=== PATIENT | male | born 1945 | race Caucasian/White ===

== ENCOUNTER → 2017-07-16 08:35 | Outpatient (CLI) | payer MEDICARE, OTHER, SELFPAY ==
[2017-07-16 09:49] LABS: Estimated Glomerular Filt Rate > 60.0 mL/min (>60); Glucose 112 mg/dL (80-110); HEMOLYSIS < 15 (0-50); Potassium 4.3 mmol/L (3.4-5.1); Sodium 145 mmol/L (137-145)
[2017-07-16 10:38] LABS: Cholesterol 129 mg/dL (140-199); HDL Cholesterol 58 mg/dL (40-60); LDL Cholesterol Calculated 44 mg/dL (<100); Triglycerides 136 mg/dL (35-150)
== END ==
PROVIDERS: PCP Family Medicine; Visit Provider Internal Medicine Interventional Cardiology
DX: I25.10 Atherosclerotic heart disease of native coronary artery without angina pectoris (principal)
CPT/HCPCS: 36415; 80048; 80061

== ENCOUNTER 2018-02-14 09:00 | Outpatient (RCR) | payer MEDICARE, OTHER, SELFPAY ==
--- NOTE | 2017-11-19 17:15 | PT.OIE ---
Current Diagnoses Unspecified injury of right lower leg, initial encounter (11/19/17) Past Medical History (Last Updated 09/30/17 @ 14:43 by Shabana Gee) Eczema (Chronic) Hyperlipidemia (Chronic) Hypertension (Chronic) RLS (restless legs syndrome) (Chronic 2010) Chicken pox (Resolved) Shingles (Resolved 2006) Past Surgical History (Last Updated 09/30/17 @ 14:43 by Shabana Gee) History of cataract removal with insertion of prosthetic lens (Resolved) Provider Visit Care Team Role Provider Type Medina Castaneda DO Family Provider Physician Primary Care Provider Specialty: Family Practice Address: [address] [place] [address], [id number] Email: [email or web address] Bronson Decker DO Attending Provider Non-Staff Specialty: Dermatology Address: [address] [place] [address], [address] Email: Physical Therapy Initial Evaluation PT-OP-A Visit Information Start: 11/19/17 09:00 Freq: Status: Active Protocol: Document 11/19/17 09:01 [facility] (Rec: 11/19/17 09:48 [facility] [id number]) Out-Patient Physical Therapy Visit Information Visit Information Visit Type Initial Evaluation Visit Start Time 09:00 Visit Stop Time 09:45 Total Visit Minutes 45 Visit Number 1/10 Number of BUSINESS MACHINE MECHANIC Visits 0 PT-OP-B Current Condition Start: 11/19/17 09:00 Freq: Status: Active Protocol: Document 11/19/17 09:01 [facility] (Rec: 11/19/17 09:48 [facility] [id number]) Current Condition History of Current Condition Onset Date Mid June Current Complaints med R knee History of Current Condition His doctor recommended PT. About 1.5 years ago he slipped down steps and hurt B knees. After a couple months both were ok. On about July 09, he was on a cruise and slipped on last step and now has burning pain medially. He can push it and rub it to make it go away . Laying on his right side bothers him. It has now gotten to the point where he wants to take care of it. He played football as a kid and did get hit in R leg and it bother him for several months, but was able to cont to play. Reports he ER his RLE when driving and is unsure if it has affect. Since he got a knee brace, it hasn't been as bad (about 3 weeks). Reports some days it is so good he forgets to put on his brace. Pt had stent put in about 1 year ago. Reports he has been doing his cardiac rehab (uses treadmill 40 min, rowing 20 min, UBE 10 min, usually lifts but stopped d/t hand/forearm pain-stopped 6 weeks ago) Prior Treatments and Tests no imaging or chiropractor- helped w/manips & some exercises PT-OP-C Subjective Start: 11/19/17 09:00 Freq: Status: Active Protocol: Document 11/19/17 09:01 [facility] (Rec: 11/19/17 09:48 [facility] [id number]) OP-PT Pain Assessment Location Right Medial Knee Pain Location Details medial Scale Used Numeric (1 - 10) Description Aching Burning Frequency Occasional Pain Duration 20 sec duration Other Pain Aggravating Factors lay R side, walking over 4.5 miles/hr, driving in ER position, turning Other Pain Alleviating Factors brace, laying on L side PT-OP-F Manual Assessment Start: 11/19/17 09:00 Freq: Status: Active Protocol: Document 11/19/17 09:01 [facility] (Rec: 11/19/17 09:48 [facility] [id number]) Manual Assessments Joint Mobility Assessment Joint Mobility Assessment R: tibia & femur IR with knee bend; L: tibia and femur close to neutral with knee bend PT-OP-G Mobility & Gait Start: 11/19/17 09:00 Freq: Status: Active Protocol: Document 11/19/17 09:01 [facility] (Rec: 11/19/17 09:48 [facility] [id number]) OP Gait Assessment Comments Gait Comments Dec post depression & push off of R side. Foot & tibia in ER and femur IR with stance phase PT-OP-K Range of Motion Start: 11/19/17 09:00 Freq: Status: Active Protocol: Document 11/19/17 09:01 [facility] (Rec: 11/19/17 09:48 [facility] [id number]) Knee Goniometric Range of Motion Knee Measured in Degrees Right Flexion Active (degrees) 113 Extension Active (degrees) 4 PT-OP-L Special Tests Start: 11/19/17 09:00 Freq: Status: Active Protocol: Document 11/19/17 09:01 [facility] (Rec: 11/19/17 09:48 [facility] [id number]) Special Tests Knee Special Tests Varus- 25 Degrees Test Results neg Valgus- 25 Degrees Test Results slight laxity Anthony Test Test Results postive w/ER Posterior Draw Test Results neg Stacie's Test Results neg PT-OP-M Strength Start: 11/19/17 09:00 Freq: Status: Active Protocol: Document 11/19/17 09:01 [facility] (Rec: 11/19/17 09:48 [facility] [id number]) Hip Strength Hip Manual Muscle Testing Right Flexion (L2) 5 Normal Abduction 4- Good- External Rotation 3+ Fair+ Internal Rotation 4 Good Comments pain w/rotation Left Flexion (L2) 5 Normal Abduction 4 Good External Rotation 4+ Good+ Internal Rotation 5 Normal Knee Strength Knee Manual Muscle Testing Right Flexion (S2) 4+ Good+ Extension (L3) 4 Good Left Flexion (S2) 5 Normal Extension (L3) 5 Normal Ankle/Foot Strength Ankle and Foot Manual Muscle Testing Right Dorsiflexion (L4) 5 Normal Plantarflexion (S1) 4+ Good+ Comments seated Left Dorsiflexion (L4) 5 Normal Plantarflexion (S1) 5 Normal PT-OP-Q Treatments Start: 11/19/17 09:00 Freq: Status: Active Protocol: Document 11/19/17 09:01 [facility] (Rec: 11/19/17 17:15 [facility] [id number]) Self-Care/Home Management Treatment Education Other Education encouraged to stretch especially HS at home PT-OP-T Assessment and Plan Start: 11/19/17 09:00 Freq: Status: Active Protocol: Document 11/19/17 09:01 [facility] (Rec: 11/19/17 17:15 [facility] [id number]) Physical Therapy Assessment Rehab Potential Rehabilitation Potential Excellent Evaluation Complexity Number of Personal Factors/Comorbidities 1-2 Number of Body Systems Impaired 4 or More Clinical Presentation at Evaluation Stable Impairments Impairments Gait Pain ROM Soft Tissue Mobility Strength Goals Two Impairment strength Short Term Goal (STG) indep with HEP STG Duration 12/19/17 Residential Sales Consultant Goal (LTG) 5/5 BLE to improve stability of R knee and allow pt to return to normal activities with dec pain/ instability. LTG Duration 01/19/18 One Impairment pain Short Term Goal (STG) 3/10 at worst for pain STG Duration 12/19/17 Long-Term Goal (LTG) 1/10 at worst for pain w/ typical activities LTG Duration 01/19/18 Assessment Summary Assessment Pt presents with obvious knee deformity into varus causing medial compression with positive testing of meniscal testing, indicating possible meniscal tears. Physical Therapy Plan Frequency and Duration Frequency of Treatment 2x/Week Duration of Treatment 2 months Plan of Care Start Date 11/19/17 Plan of Care End Date 01/19/18 Therapeutic Interventions Therapeutic Interventions Aquatic Therapy Balance Training Gait Training Home Exercise Program Joint Mobilizations Manual Therapy Patient/Caregiver Education Self-Care/Home Management Soft Tissue Mobilization Taping Therapeutic Activities Therapeutic Exercises Modalities Cold Pack/Ice Massage Electric Stimulation Hot Packs Infrared Therapy Iontophoresis Ultrasound Next Visit Focus/Plan Next Note Type Treatment Note Next Visit Plan Create HEP: LE stretches, s/l abd & clamshells, squats over chair, bridge; tibfemoral mobs & patellar mobs & fascial STM
--- NOTE | 2017-11-19 17:16 | PT.OPPOC ---
Current Diagnoses Difficulty in walking, not elsewhere classified (11/19/17) Weakness (11/19/17) Unspecified injury of right lower leg, initial encounter (11/19/17) Provider Visit Care Team Role Provider Type Medina Castaneda DO Family Provider Physician Primary Care Provider Specialty: Family Practice Address: [address] [place] [address], [address] Email: [email or web address] Bronson Decker DO Attending Provider Non-Staff Specialty: Dermatology Address: [address] [place] [address], [id number] Email: Plan Of Care PT-OP-T Assessment and Plan Start: 11/19/17 09:00 Freq: Status: Active Protocol: Document 11/19/17 09:01 [facility] (Rec: 11/19/17 17:15 [facility] [id number]) Physical Therapy Assessment Rehab Potential Rehabilitation Potential Excellent Evaluation Complexity Number of Personal Factors/Comorbidities 1-2 Number of Body Systems Impaired 4 or More Clinical Presentation at Evaluation Stable Impairments Impairments Gait Pain ROM Soft Tissue Mobility Strength Goals Two Impairment strength Short Term Goal (STG) indep with HEP STG Duration 12/19/17 [facility] Goal (LTG) 5/5 BLE to improve stability of R knee and allow pt to return to normal activities with dec pain/ instability. LTG Duration 01/19/18 One Impairment pain Short Term Goal (STG) 3/10 at worst for pain STG Duration 12/19/17 [facility]iary Goal (LTG) 1/10 at worst for pain w/ typical activities LTG Duration 01/19/18 Assessment Summary Assessment Pt presents with obvious knee deformity into varus causing medial compression with positive testing of meniscal testing, indicating possible meniscal tears. Physical Therapy Plan Frequency and Duration Frequency of Treatment 2x/Week Duration of Treatment 2 months Plan of Care Start Date 11/19/17 Plan of Care End Date 01/19/18 Therapeutic Interventions Therapeutic Interventions Aquatic Therapy Balance Training Gait Training Home Exercise Program Joint Mobilizations Manual Therapy Patient/Caregiver Education Self-Care/Home Management Soft Tissue Mobilization Taping Therapeutic Activities Therapeutic Exercises Modalities Cold Pack/Ice Massage Electric Stimulation Hot Packs Infrared Therapy Iontophoresis Ultrasound Next Visit Focus/Plan Next Note Type Treatment Note Next Visit Plan Create HEP: LE stretches, s/l abd & clamshells, squats over chair, bridge; tibfemoral mobs & patellar mobs & fascial STM Plan of Care Dates Plan of Care Start Date 11/19/17 Plan of Care End Date 01/19/18 Please Sign and Return: I have reviewed this Plan of Care and certify that the skilled therapy services above are required to meet the patient?s needs. Physician Signature Date Printed Name and Credentials Clinical Instructor Signature Printed Name and Credentials
--- NOTE | 2017-11-22 15:56 | PT.OTN ---
Addendum entered and electronically signed by Mona Almodovar, PT 11/22/17 16:03: Timing entered incorrectly. TIme was [phone] with total time of 53 min Original Note: Current Diagnoses Unspecified injury of right lower leg, initial encounter (11/22/17) Physical Therapy Treatment Note PT-OP-A Visit Information Start: 11/19/17 09:00 Freq: Status: Active Protocol: Document 11/22/17 15:26 [facility] (Rec: 11/22/17 15:55 [facility] [id number]) Out-Patient Physical Therapy Visit Information Visit Information Visit Type Treatment Note Visit Start Time 09:00 Visit Stop Time 09:50 Total Visit Minutes 50 Visit Number 2/10 Number of TAPROOM ATTENDANT Visits 0 PT-OP-B Current Condition Start: 11/19/17 09:00 Freq: Status: Active Protocol: Document 11/19/17 09:01 [facility] (Rec: 11/19/17 09:48 [facility] [id number]) Current Condition History of Current Condition Onset Date Mid June Current Complaints med R knee History of Current Condition His doctor recommended PT. About 1.5 years ago he slipped down steps and hurt B knees. After a couple months both were ok. On about July 09, he was on a cruise and slipped on last step and now has burning pain medially. He can push it and rub it to make it go away . Laying on his right side bothers him. It has now gotten to the point where he wants to take care of it. He played football as a kid and did get hit in R leg and it bother him for several months, but was able to cont to play. Reports he ER his RLE when driving and is unsure if it has affect. Since he got a knee brace, it hasn't been as bad (about 3 weeks). Reports some days it is so good he forgets to put on his brace. Pt had stent put in about 1 year ago. Reports he has been doing his cardiac rehab (uses treadmill 40 min, rowing 20 min, UBE 10 min, usually lifts but stopped d/t hand/forearm pain-stopped 6 weeks ago) Prior Treatments and Tests no imaging or chiropractor- helped w/manips & some exercises PT-OP-C Subjective Start: 11/19/17 09:00 Freq: Status: Active Protocol: Document 11/22/17 15:26 [facility] (Rec: 11/22/17 15:55 [facility] [id number]) OP-PT Subjective Patient Comments Patient Comments Pt came ready to get started on his PT today; interest in e -stem; mentioned that his R knee was stiff/painful this morning, especially after stairs early after waking, but felt better after he moved around more through morning and no pain upon arrival for PT. PT-OP-F Manual Assessment Start: 11/19/17 09:00 Freq: Status: Active Protocol: Document 11/19/17 09:01 [facility] (Rec: 11/19/17 09:48 [facility] [id number]) Manual Assessments Joint Mobility Assessment Joint Mobility Assessment R: tibia & femur IR with knee bend; L: tibia and femur close to neutral with knee bend PT-OP-G Mobility & Gait Start: 11/19/17 09:00 Freq: Status: Active Protocol: Document 11/19/17 09:01 [facility] (Rec: 11/19/17 09:48 [facility] [id number]) OP Gait Assessment Comments Gait Comments Dec post depression & push off of R side. Foot & tibia in ER and femur IR with stance phase PT-OP-K Range of Motion Start: 11/19/17 09:00 Freq: Status: Active Protocol: Document 11/19/17 09:01 [facility] (Rec: 11/19/17 09:48 [facility] [id number]) Knee Goniometric Range of Motion Knee Measured in Degrees Right Flexion Active (degrees) 113 Extension Active (degrees) 4 PT-OP-L Special Tests Start: 11/19/17 09:00 Freq: Status: Active Protocol: Document 11/19/17 09:01 [facility] (Rec: 11/19/17 09:48 [facility] [id number]) Special Tests Knee Special Tests Varus- 25 Degrees Test Results neg Valgus- 25 Degrees Test Results slight laxity Anthony Test Test Results postive w/ER Posterior Draw Test Results neg Stacie's Test Results neg PT-OP-M Strength Start: 11/19/17 09:00 Freq: Status: Active Protocol: Document 11/19/17 09:01 [facility] (Rec: 11/19/17 09:48 [facility] [id number]) Hip Strength Hip Manual Muscle Testing Right Flexion (L2) 5 Normal Abduction 4- Good- External Rotation 3+ Fair+ Internal Rotation 4 Good Comments pain w/rotation Left Flexion (L2) 5 Normal Abduction 4 Good External Rotation 4+ Good+ Internal Rotation 5 Normal Knee Strength Knee Manual Muscle Testing Right Flexion (S2) 4+ Good+ Extension (L3) 4 Good Left Flexion (S2) 5 Normal Extension (L3) 5 Normal Ankle/Foot Strength Ankle and Foot Manual Muscle Testing Right Dorsiflexion (L4) 5 Normal Plantarflexion (S1) 4+ Good+ Comments seated Left Dorsiflexion (L4) 5 Normal Plantarflexion (S1) 5 Normal PT-OP-Q Treatments Start: 11/19/17 09:00 Freq: Status: Active Protocol: Document 11/22/17 15:26 [facility] (Rec: 11/22/17 15:55 ML [id number]) Therapeutic Exercises Supine Exercises 3 Supine Exercise Name quad stretch knee to chest off edge of bed Side bilateral Comments Aleksey test 2 Supine Exercise Name hamstring stretch with towel Side bilateral Comments verbal and tactile cueing, begin with assist to ext knees 1 Supine Exercise Name Bridging on ball Side bilateral Comments HEP, ball for hamstring releif Sidelying Exercises 2 Sidelying Exercise Name abduction Side left Comments laying on R side caused pain R knee, stopped exercise and did in standing 1 Sidelying Exercise Name clamshells Side bilateral Resistance level 1 Comments HEP Standing Exercises 1 Standing Exercise Name abduction Side bilateral Comments remain upright position of trunk/pelvis, work on no rot in abd leg, HEP Manual Therapy Treatment Soft Tissue Mobilization 1 Body Location medial knee Mobilization Type Myofascial Release Sustained Pressure Intensity/Depth Superficial Body Position Supine Comments medial circumferential motion bilat near tib plateau Joint Mobilizations 1 Joint patellar mobs Direction inferior Body Position Supine Comments R needed more inf glide than L PT-OP-R Modalities Start: 11/19/17 09:00 Freq: Status: Active Protocol: Document 11/22/17 15:26 [facility] (Rec: 11/22/17 15:55 ML [id number]) Electric Stimulation Electric Stimulation Interferential Current (IFC) Body Location R knee Duration (Minutes) 10 Patient Position Hooklying Combined With Heat/Cold Cold Pack PT-OP-T Assessment and Plan Start: 11/19/17 09:00 Freq: Status: Active Protocol: Document 11/22/17 15:26 [facility] (Rec: 11/22/17 15:55 ML [id number]) Physical Therapy Assessment Goals Two Impairment strength Short Term Goal (STG) indep with HEP STG Duration 12/19/17 Longterm Goal (LTG) 5/5 BLE to improve stability of R knee and allow pt to return to normal activities with dec pain/ instability. LTG Duration 01/19/18 One Impairment pain Short Term Goal (STG) 3/10 at worst for pain STG Duration 12/19/17 Longterm Goal (LTG) 1/10 at worst for pain w/ typical activities LTG Duration 01/19/18 Assessment Summary Assessment Pt had diffculty in side lying on R and maintaining an neutral position, but very willing to learn and correct errors. R knee has more fascial restriction than L; assigned HEP program of 3 exercises and 2 stretches. Requires lots of verbal and tactile cueing for maintaining a neutral position in general . Physical Therapy Plan Frequency and Duration Frequency of Treatment 2x/Week Duration of Treatment 2 months Plan of Care Start Date 11/19/17 Plan of Care End Date 01/19/18 Next Visit Focus/Plan Next Note Type Treatment Note Next Visit Plan Review HEP; check mobility of fascia and patella from last visit, check tib-fem mobs AP bilat; instruct squats over chair (HEP)
--- NOTE | 2017-11-26 09:57 | PT.OTN ---
Current Diagnoses Unspecified injury of right lower leg, initial encounter (11/26/17) Physical Therapy Treatment Note PT-OP-A Visit Information Start: 11/19/17 09:00 Freq: Status: Active Protocol: Document 11/26/17 09:47 GGD (Rec: 11/26/17 09:57 GGD [email or web address]) Out-Patient Physical Therapy Visit Information Visit Information Visit Type Treatment Note Visit Start Time 09:00 Visit Stop Time 09:55 Total Visit Minutes 55 Visit Number 3/10 Number of COMMERCIAL LOAN MANAGER Visits 1 PT-OP-B Current Condition Start: 11/19/17 09:00 Freq: Status: Active Protocol: Document 11/19/17 09:01 [facility] (Rec: 11/19/17 09:48 [facility] [id number]) Current Condition History of Current Condition Onset Date Mid June Current Complaints med R knee History of Current Condition His doctor recommended PT. About 1.5 years ago he slipped down steps and hurt B knees. After a couple months both were ok. On about July 09, he was on a cruise and slipped on last step and now has burning pain medially. He can push it and rub it to make it go away . Laying on his right side bothers him. It has now gotten to the point where he wants to take care of it. He played football as a kid and did get hit in R leg and it bother him for several months, but was able to cont to play. Reports he ER his RLE when driving and is unsure if it has affect. Since he got a knee brace, it hasn't been as bad (about 3 weeks). Reports some days it is so good he forgets to put on his brace. Pt had stent put in about 1 year ago. Reports he has been doing his cardiac rehab (uses treadmill 40 min, rowing 20 min, UBE 10 min, usually lifts but stopped d/t hand/forearm pain-stopped 6 weeks ago) Prior Treatments and Tests no imaging or chiropractor- helped w/manips & some exercises PT-OP-C Subjective Start: 11/19/17 09:00 Freq: Status: Active Protocol: Document 11/26/17 09:47 GGD (Rec: 11/26/17 09:57 GGD [email or web address]) OP-PT Subjective Patient Comments Patient Comments Pt states that he having trouble with his HEP. PT-OP-F Manual Assessment Start: 11/19/17 09:00 Freq: Status: Active Protocol: Document 11/19/17 09:01 [facility] (Rec: 11/19/17 09:48 [facility] [id number]) Manual Assessments Joint Mobility Assessment Joint Mobility Assessment R: tibia & femur IR with knee bend; L: tibia and femur close to neutral with knee bend PT-OP-G Mobility & Gait Start: 11/19/17 09:00 Freq: Status: Active Protocol: Document 11/19/17 09:01 [facility] (Rec: 11/19/17 09:48 [facility] [id number]) OP Gait Assessment Comments Gait Comments Dec post depression & push off of R side. Foot & tibia in ER and femur IR with stance phase PT-OP-K Range of Motion Start: 11/19/17 09:00 Freq: Status: Active Protocol: Document 11/19/17 09:01 [facility] (Rec: 11/19/17 09:48 [facility] [id number]) Knee Goniometric Range of Motion Knee Measured in Degrees Right Flexion Active (degrees) 113 Extension Active (degrees) 4 PT-OP-L Special Tests Start: 11/19/17 09:00 Freq: Status: Active Protocol: Document 11/19/17 09:01 [facility] (Rec: 11/19/17 09:48 [facility] [id number]) Special Tests Knee Special Tests Varus- 25 Degrees Test Results neg Valgus- 25 Degrees Test Results slight laxity Anthony Test Test Results postive w/ER Posterior Draw Test Results neg Stacie's Test Results neg PT-OP-M Strength Start: 11/19/17 09:00 Freq: Status: Active Protocol: Document 11/19/17 09:01 [facility] (Rec: 11/19/17 09:48 [facility] [id number]) Hip Strength Hip Manual Muscle Testing Right Flexion (L2) 5 Normal Abduction 4- Good- External Rotation 3+ Fair+ Internal Rotation 4 Good Comments pain w/rotation Left Flexion (L2) 5 Normal Abduction 4 Good External Rotation 4+ Good+ Internal Rotation 5 Normal Knee Strength Knee Manual Muscle Testing Right Flexion (S2) 4+ Good+ Extension (L3) 4 Good Left Flexion (S2) 5 Normal Extension (L3) 5 Normal Ankle/Foot Strength Ankle and Foot Manual Muscle Testing Right Dorsiflexion (L4) 5 Normal Plantarflexion (S1) 4+ Good+ Comments seated Left Dorsiflexion (L4) 5 Normal Plantarflexion (S1) 5 Normal PT-OP-Q Treatments Start: 11/19/17 09:00 Freq: Status: Active Protocol: Document 11/26/17 09:47 [facility] (Rec: 11/26/17 09:57 GGD [email or web address]) Therapeutic Exercises Supine Exercises 3 Supine Exercise Name quad stretch knee to chest off edge of bed Side bilateral Comments Aleksey test 2 Supine Exercise Name hamstring stretch with towel Side bilateral Comments verbal and tactile cueing, begin with assist to ext knees 1 Supine Exercise Name Bridging on ball Side bilateral Comments HEP, ball for hamstring releif Sidelying Exercises 1 Sidelying Exercise Name clamshells Side bilateral Resistance level 1 Comments HEP Standing Exercises 2 Standing Exercise Name Squats over chair Side bilateral Comments need min cues 1 Standing Exercise Name abduction Side bilateral Comments remain upright position of trunk/pelvis, work on no rot in abd leg, HEP Manual Therapy Treatment Soft Tissue Mobilization 1 Body Location medial knee Mobilization Type Myofascial Release Sustained Pressure Intensity/Depth Superficial Body Position Supine Comments medial circumferential motion bilat near tib plateau Joint Mobilizations 1 Joint patellar mobs Direction inferior Body Position Supine Self-Care/Home Management Treatment Education Other Education Issued SuperFeet and educated on use. Reviewed HEP. PT-OP-R Modalities Start: 11/19/17 09:00 Freq: Status: Active Protocol: Document 11/26/17 09:47 [facility] (Rec: 11/26/17 09:57 GGD [email or web address]) Electric Stimulation Electric Stimulation Interferential Current (IFC) Body Location R knee Duration (Minutes) 10 Patient Position Hooklying Combined With Heat/Cold Cold Pack PT-OP-T Assessment and Plan Start: 11/19/17 09:00 Freq: Status: Active Protocol: Document 11/26/17 09:47 [facility] (Rec: 11/26/17 09:57 GGD [email or web address]) Physical Therapy Assessment Assessment Summary Assessment Pt had no C/O pain with exercise. He did ibis cues for techinque and positioning. He had decrease in pain after manual treatment. Physical Therapy Plan Frequency and Duration Frequency of Treatment 2x/Week Duration of Treatment 2 months Plan of Care Start Date 11/19/17 Plan of Care End Date 01/19/18 Next Visit Focus/Plan Next Note Type Treatment Note Next Visit Plan Review HEP and tolerance to superfeet.
--- NOTE | 2017-11-29 12:02 | PT.OTN ---
Current Diagnoses Unspecified injury of right lower leg, initial encounter (11/29/17) Physical Therapy Treatment Note PT-OP-A Visit Information Start: 11/19/17 09:00 Freq: Status: Active Protocol: Document 11/29/17 09:05 [facility] (Rec: 11/29/17 09:47 [facility] [id number]) Out-Patient Physical Therapy Visit Information Visit Information Visit Type Treatment Note Visit Start Time 09:00 Visit Stop Time 09:55 Total Visit Minutes 55 Visit Number 3/10 Number of FOAM TANK LAMINATOR Visits 1 PT-OP-B Current Condition Start: 11/19/17 09:00 Freq: Status: Active Protocol: Document 11/19/17 09:01 [facility] (Rec: 11/19/17 09:48 [facility] [id number]) Current Condition History of Current Condition Onset Date Mid June Current Complaints med R knee History of Current Condition His doctor recommended PT. About 1.5 years ago he slipped down steps and hurt B knees. After a couple months both were ok. On about July 09, he was on a cruise and slipped on last step and now has burning pain medially. He can push it and rub it to make it go away . Laying on his right side bothers him. It has now gotten to the point where he wants to take care of it. He played football as a kid and did get hit in R leg and it bother him for several months, but was able to cont to play. Reports he ER his RLE when driving and is unsure if it has affect. Since he got a knee brace, it hasn't been as bad (about 3 weeks). Reports some days it is so good he forgets to put on his brace. Pt had stent put in about 1 year ago. Reports he has been doing his cardiac rehab (uses treadmill 40 min, rowing 20 min, UBE 10 min, usually lifts but stopped d/t hand/forearm pain-stopped 6 weeks ago) Prior Treatments and Tests no imaging or chiropractor- helped w/manips & some exercises PT-OP-C Subjective Start: 11/19/17 09:00 Freq: Status: Active Protocol: Document 11/29/17 09:05 [facility] (Rec: 11/29/17 09:47 [facility] [id number]) OP-PT Subjective Patient Comments Patient Comments Wearing superfeet and noticed walking is easier and feels his knee is more stable. Also wears soft compression brace given by physician. PT-OP-F Manual Assessment Start: 11/19/17 09:00 Freq: Status: Active Protocol: Document 11/19/17 09:01 [facility] (Rec: 11/19/17 09:48 [facility] [id number]) Manual Assessments Joint Mobility Assessment Joint Mobility Assessment R: tibia & femur IR with knee bend; L: tibia and femur close to neutral with knee bend PT-OP-G Mobility & Gait Start: 11/19/17 09:00 Freq: Status: Active Protocol: Document 11/19/17 09:01 [facility] (Rec: 11/19/17 09:48 [facility] [id number]) OP Gait Assessment Comments Gait Comments Dec post depression & push off of R side. Foot & tibia in ER and femur IR with stance phase PT-OP-K Range of Motion Start: 11/19/17 09:00 Freq: Status: Active Protocol: Document 11/19/17 09:01 [facility] (Rec: 11/19/17 09:48 [facility] [id number]) Knee Goniometric Range of Motion Knee Measured in Degrees Right Flexion Active (degrees) 113 Extension Active (degrees) 4 PT-OP-L Special Tests Start: 11/19/17 09:00 Freq: Status: Active Protocol: Document 11/19/17 09:01 [facility] (Rec: 11/19/17 09:48 [facility] [id number]) Special Tests Knee Special Tests Varus- 25 Degrees Test Results neg Valgus- 25 Degrees Test Results slight laxity Anthony Test Test Results postive w/ER Posterior Draw Test Results neg Stacie's Test Results neg PT-OP-M Strength Start: 11/19/17 09:00 Freq: Status: Active Protocol: Document 11/19/17 09:01 [facility] (Rec: 11/19/17 09:48 [facility] [id number]) Hip Strength Hip Manual Muscle Testing Right Flexion (L2) 5 Normal Abduction 4- Good- External Rotation 3+ Fair+ Internal Rotation 4 Good Comments pain w/rotation Left Flexion (L2) 5 Normal Abduction 4 Good External Rotation 4+ Good+ Internal Rotation 5 Normal Knee Strength Knee Manual Muscle Testing Right Flexion (S2) 4+ Good+ Extension (L3) 4 Good Left Flexion (S2) 5 Normal Extension (L3) 5 Normal Ankle/Foot Strength Ankle and Foot Manual Muscle Testing Right Dorsiflexion (L4) 5 Normal Plantarflexion (S1) 4+ Good+ Comments seated Left Dorsiflexion (L4) 5 Normal Plantarflexion (S1) 5 Normal PT-OP-Q Treatments Start: 11/19/17 09:00 Freq: Status: Active Protocol: Document 11/29/17 09:05 [facility] (Rec: 11/29/17 09:47 [facility] [id number]) Therapeutic Exercises Supine Exercises 3 Supine Exercise Name quad stretch knee to chest off edge of bed Side bilateral Comments Aleksey test 2 Supine Exercise Name hamstring stretch with towel Side bilateral Comments verbal and tactile cueing, begin with assist to ext knees 1 Supine Exercise Name Bridging on ball Side bilateral Reps/Minutes 15x2 Sidelying Exercises 2 Sidelying Exercise Name abduction Side right Reps/Minutes 15x, 8x 1 Sidelying Exercise Name clamshells Side bilateral Reps/Minutes 15x Standing Exercises 3 Standing Exercise Name Hip AD Side right Reps/Minutes 10 Comments Holding 10 sec' 2 Standing Exercise Name Squats over chair Side bilateral Reps/Minutes 30x Comments need min cues Manual Therapy Treatment Soft Tissue Mobilization 1 Body Location medial knee Mobilization Type Myofascial Release Sustained Pressure Intensity/Depth Superficial Body Position Supine Comments medial circumferential motion bilat near tib plateau Joint Mobilizations 1 Joint patellar mobs Direction inferior Body Position Supine Self-Care/Home Management Treatment Education Patient Education Home Exercise Program Other Education Reviewed and issued HEP: Hip AD with/without T-Band resistance in standing. PT-OP-R Modalities Start: 11/19/17 09:00 Freq: Status: Active Protocol: Document 11/29/17 09:05 [facility] (Rec: 11/29/17 09:47 [facility] [id number]) Electric Stimulation Electric Stimulation Interferential Current (IFC) Body Location R knee Duration (Minutes) 10 Intensity 19-21 Patient Position Hooklying Combined With Heat/Cold Cold Pack PT-OP-T Assessment and Plan Start: 11/19/17 09:00 Freq: Status: Active Protocol: Document 11/29/17 09:05 [facility] (Rec: 11/29/17 09:47 [facility] [id number]) Physical Therapy Assessment Assessment Summary Assessment No palpable pain at end of treatment. No pain with exercise. Possible back involvement also? Physical Therapy Plan Frequency and Duration Frequency of Treatment 2x/Week Duration of Treatment 2 months Plan of Care Start Date 11/19/17 Plan of Care End Date 01/19/18 Next Visit Focus/Plan Next Note Type Treatment Note Next Visit Plan Progress R LE/knee strengthening, add core control.
--- NOTE | 2017-12-03 09:00 | PT.OTN ---
Current Diagnoses Unspecified injury of right lower leg, initial encounter (12/03/17) Physical Therapy Treatment Note PT-OP-A Visit Information Start: 11/19/17 09:00 Freq: Status: Active Protocol: Document 12/03/17 09:00 [facility] (Rec: 12/03/17 11:13 GGD [email or web address]) Out-Patient Physical Therapy Visit Information Visit Information Visit Type Treatment Note Visit Start Time 09:02 Visit Stop Time 09:55 Total Visit Minutes 53 Visit Number 5/10 Number of FINISHER SCREWDOWN Visits 1 Evaluation Information Evaluation Date 11/19/17 PT-OP-B Current Condition Start: 11/19/17 09:00 Freq: Status: Active Protocol: Document 11/19/17 09:01 [facility] (Rec: 11/19/17 09:48 [facility] [id number]) Current Condition History of Current Condition Onset Date Mid June Current Complaints med R knee History of Current Condition His doctor recommended PT. About 1.5 years ago he slipped down steps and hurt B knees. After a couple months both were ok. On about July 09, he was on a cruise and slipped on last step and now has burning pain medially. He can push it and rub it to make it go away . Laying on his right side bothers him. It has now gotten to the point where he wants to take care of it. He played football as a kid and did get hit in R leg and it bother him for several months, but was able to cont to play. Reports he ER his RLE when driving and is unsure if it has affect. Since he got a knee brace, it hasn't been as bad (about 3 weeks). Reports some days it is so good he forgets to put on his brace. Pt had stent put in about 1 year ago. Reports he has been doing his cardiac rehab (uses treadmill 40 min, rowing 20 min, UBE 10 min, usually lifts but stopped d/t hand/forearm pain-stopped 6 weeks ago) Prior Treatments and Tests no imaging or chiropractor- helped w/manips & some exercises PT-OP-C Subjective Start: 11/19/17 09:00 Freq: Status: Active Protocol: Document 12/03/17 09:00 [facility] (Rec: 12/03/17 11:13 GGD [email or web address]) OP-PT Subjective Patient Comments Patient Comments Pt states his pain is better and no increase in pain with sleeping. PT-OP-F Manual Assessment Start: 11/19/17 09:00 Freq: Status: Active Protocol: Document 11/19/17 09:01 [facility] (Rec: 11/19/17 09:48 [facility] [id number]) Manual Assessments Joint Mobility Assessment Joint Mobility Assessment R: tibia & femur IR with knee bend; L: tibia and femur close to neutral with knee bend PT-OP-G Mobility & Gait Start: 11/19/17 09:00 Freq: Status: Active Protocol: Document 11/19/17 09:01 [facility] (Rec: 11/19/17 09:48 [facility] [id number]) OP Gait Assessment Comments Gait Comments Dec post depression & push off of R side. Foot & tibia in ER and femur IR with stance phase PT-OP-K Range of Motion Start: 11/19/17 09:00 Freq: Status: Active Protocol: Document 11/19/17 09:01 [facility] (Rec: 11/19/17 09:48 [facility] [id number]) Knee Goniometric Range of Motion Knee Measured in Degrees Right Flexion Active (degrees) 113 Extension Active (degrees) 4 PT-OP-L Special Tests Start: 11/19/17 09:00 Freq: Status: Active Protocol: Document 11/19/17 09:01 [facility] (Rec: 11/19/17 09:48 [facility] [id number]) Special Tests Knee Special Tests Varus- 25 Degrees Test Results neg Valgus- 25 Degrees Test Results slight laxity Anthony Test Test Results postive w/ER Posterior Draw Test Results neg Stacie's Test Results neg PT-OP-M Strength Start: 11/19/17 09:00 Freq: Status: Active Protocol: Document 11/19/17 09:01 [facility] (Rec: 11/19/17 09:48 [facility] [id number]) Hip Strength Hip Manual Muscle Testing Right Flexion (L2) 5 Normal Abduction 4- Good- External Rotation 3+ Fair+ Internal Rotation 4 Good Comments pain w/rotation Left Flexion (L2) 5 Normal Abduction 4 Good External Rotation 4+ Good+ Internal Rotation 5 Normal Knee Strength Knee Manual Muscle Testing Right Flexion (S2) 4+ Good+ Extension (L3) 4 Good Left Flexion (S2) 5 Normal Extension (L3) 5 Normal Ankle/Foot Strength Ankle and Foot Manual Muscle Testing Right Dorsiflexion (L4) 5 Normal Plantarflexion (S1) 4+ Good+ Comments seated Left Dorsiflexion (L4) 5 Normal Plantarflexion (S1) 5 Normal PT-OP-Q Treatments Start: 11/19/17 09:00 Freq: Status: Active Protocol: Document 12/03/17 09:00 [facility] (Rec: 12/03/17 11:13 [facility]GD [email or web address]) Therapeutic Exercises Supine Exercises 3 Supine Exercise Name quad stretch knee to chest off edge of bed Side bilateral Comments Aleksey test 2 Supine Exercise Name hamstring stretch with towel Side bilateral Comments verbal and tactile cueing, begin with assist to ext knees 1 Supine Exercise Name Bridging on ball Side bilateral Reps/Minutes 15x2 Sidelying Exercises 3 Sidelying Exercise Name Hip Adduction Side right Reps/Minutes 20 2 Sidelying Exercise Name abduction Side right Reps/Minutes 15 1 Sidelying Exercise Name clamshells Side bilateral Reps/Minutes 20 Sitting Exercises 1 Sitting Exercise Name LAQ Side right Resistance 4# Equipment Used ankle weight Standing Exercises 4 Standing Exercise Name Heel raises Side bilateral Resistance jeremias Reps/Minutes 20 2 Standing Exercise Name Squats over chair Side bilateral Reps/Minutes 30x Comments need min cues Manual Therapy Treatment Soft Tissue Mobilization 1 Body Location medial knee Mobilization Type Myofascial Release Sustained Pressure Intensity/Depth Superficial Body Position Supine Comments medial circumferential motion bilat near tib plateau Joint Mobilizations 1 Joint patellar mobs Direction inferior Body Position Supine Self-Care/Home Management Treatment Education Patient Education Home Exercise Program Other Education Handout for ice pack PT-OP-R Modalities Start: 11/19/17 09:00 Freq: Status: Active Protocol: Document 12/03/17 09:00 [facility] (Rec: 12/03/17 11:13 GGD [email or web address]) Electric Stimulation Electric Stimulation Interferential Current (IFC) Body Location R knee Duration (Minutes) 15 Patient Position Hooklying Combined With Heat/Cold Cold Pack PT-OP-T Assessment and Plan Start: 11/19/17 09:00 Freq: Status: Active Protocol: Document 12/03/17 09:00 [facility] (Rec: 12/03/17 11:13 [facility]GD [email or web address]) Physical Therapy Assessment Goals Two Impairment strength Short Term Goal (STG) indep with HEP STG Duration 12/19/17 Retirement Goal (LTG) 5/5 BLE to improve stability of R knee and allow pt to return to normal activities with dec pain/ instability. LTG Duration 01/19/18 One Impairment pain Short Term Goal (STG) 3/10 at worst for pain STG Duration 12/19/17 Retirement Goal (LTG) 1/10 at worst for pain w/ typical activities LTG Duration 01/19/18 Assessment Summary Assessment Pt able to progress strengthing. He did have pain with bridges with hamstring curls in his right hamstring. Physical Therapy Plan Frequency and Duration Frequency of Treatment 2x/Week Duration of Treatment 2 months Plan of Care Start Date 11/19/17 Plan of Care End Date 01/19/18 Next Visit Focus/Plan Next Note Type Treatment Note Next Visit Plan progress Le strengthening, quad and hamstring
--- NOTE | 2017-12-06 12:30 | PT.OTN ---
Current Diagnoses Unspecified injury of right lower leg, initial encounter (12/06/17) Physical Therapy Treatment Note PT-OP-A Visit Information Start: 11/19/17 09:00 Freq: Status: Active Protocol: Document 12/06/17 09:07 LRN (Rec: 12/06/17 09:48 [facility] [id number]) Out-Patient Physical Therapy Visit Information Visit Information Visit Type Treatment Note Visit Start Time 09:07 Visit Stop Time 09:50 Total Visit Minutes 43 Visit Number 6/10 Number of MANDREL PULLER Visits 0 Evaluation Information Evaluation Date 11/19/17 PT-OP-B Current Condition Start: 11/19/17 09:00 Freq: Status: Active Protocol: Document 11/19/17 09:01 LR (Rec: 11/19/17 09:48 [facility] [id number]) Current Condition History of Current Condition Onset Date Mid June Current Complaints med R knee History of Current Condition His doctor recommended PT. About 1.5 years ago he slipped down steps and hurt B knees. After a couple months both were ok. On about July 09, he was on a cruise and slipped on last step and now has burning pain medially. He can push it and rub it to make it go away . Laying on his right side bothers him. It has now gotten to the point where he wants to take care of it. He played football as a kid and did get hit in R leg and it bother him for several months, but was able to cont to play. Reports he ER his RLE when driving and is unsure if it has affect. Since he got a knee brace, it hasn't been as bad (about 3 weeks). Reports some days it is so good he forgets to put on his brace. Pt had stent put in about 1 year ago. Reports he has been doing his cardiac rehab (uses treadmill 40 min, rowing 20 min, UBE 10 min, usually lifts but stopped d/t hand/forearm pain-stopped 6 weeks ago) Prior Treatments and Tests no imaging or chiropractor- helped w/manips & some exercises PT-OP-C Subjective Start: 11/19/17 09:00 Freq: Status: Active Protocol: Document 12/06/17 09:07 LRN (Rec: 12/06/17 09:48 [facility] [id number]) OP-PT Subjective Patient Comments Patient Comments Improved 50% since starting. Feels the knee pain when driving when it rests on the console. PT-OP-F Manual Assessment Start: 11/19/17 09:00 Freq: Status: Active Protocol: Document 11/19/17 09:01 [facility] (Rec: 11/19/17 09:48 [facility] [id number]) Manual Assessments Joint Mobility Assessment Joint Mobility Assessment R: tibia & femur IR with knee bend; L: tibia and femur close to neutral with knee bend PT-OP-G Mobility & Gait Start: 11/19/17 09:00 Freq: Status: Active Protocol: Document 11/19/17 09:01 [facility] (Rec: 11/19/17 09:48 [facility] [id number]) OP Gait Assessment Comments Gait Comments Dec post depression & push off of R side. Foot & tibia in ER and femur IR with stance phase PT-OP-K Range of Motion Start: 11/19/17 09:00 Freq: Status: Active Protocol: Document 11/19/17 09:01 [facility] (Rec: 11/19/17 09:48 [facility] [id number]) Knee Goniometric Range of Motion Knee Measured in Degrees Right Flexion Active (degrees) 113 Extension Active (degrees) 4 PT-OP-L Special Tests Start: 11/19/17 09:00 Freq: Status: Active Protocol: Document 11/19/17 09:01 [facility] (Rec: 11/19/17 09:48 [facility] [id number]) Special Tests Knee Special Tests Varus- 25 Degrees Test Results neg Valgus- 25 Degrees Test Results slight laxity Anthony Test Test Results postive w/ER Posterior Draw Test Results neg Stacie's Test Results neg PT-OP-M Strength Start: 11/19/17 09:00 Freq: Status: Active Protocol: Document 11/19/17 09:01 [facility] (Rec: 11/19/17 09:48 [facility] [id number]) Hip Strength Hip Manual Muscle Testing Right Flexion (L2) 5 Normal Abduction 4- Good- External Rotation 3+ Fair+ Internal Rotation 4 Good Comments pain w/rotation Left Flexion (L2) 5 Normal Abduction 4 Good External Rotation 4+ Good+ Internal Rotation 5 Normal Knee Strength Knee Manual Muscle Testing Right Flexion (S2) 4+ Good+ Extension (L3) 4 Good Left Flexion (S2) 5 Normal Extension (L3) 5 Normal Ankle/Foot Strength Ankle and Foot Manual Muscle Testing Right Dorsiflexion (L4) 5 Normal Plantarflexion (S1) 4+ Good+ Comments seated Left Dorsiflexion (L4) 5 Normal Plantarflexion (S1) 5 Normal PT-OP-Q Treatments Start: 11/19/17 09:00 Freq: Status: Active Protocol: Document 12/06/17 09:07 LRN (Rec: 12/06/17 09:48 [facility]N [id number]) Gym Equipment Cable Column (Body Solid) Knee Flex Resistance 30# Reps/Time 10x Knee ext Resistance 20# Reps/Time 10x Therapeutic Exercises Supine Exercises 3 Supine Exercise Name quad stretch knee to chest off edge of bed Side bilateral Comments Aleksey test, followed by active knee flex stretch 2 Supine Exercise Name Hamstring/LE neural stretch Side right Comments Handout shown. Sidelying Exercises 3 Sidelying Exercise Name Hip Adduction Side right Reps/Minutes 10 Comments Pt not able to do after several attempts to modify ex in supine 2 Sidelying Exercise Name abduction Side bilateral Reps/Minutes 10x2 1 Sidelying Exercise Name clamshells Side bilateral Reps/Minutes 20 Standing Exercises 3 Standing Exercise Name Hip AD Side right Resistance L 2 Equipment Used T-Band Reps/Minutes 5-10 Comments Holding 10 sec' 2 Standing Exercise Name Squats over chair Side bilateral Reps/Minutes 30x Comments need min cues Manual Therapy Treatment Joint Mobilizations 1 Joint patellar mobs Direction inferior Body Position Supine Other Other Manual Treatments R LE: Manual MCL stress applied without pain. Manual Anthony Test applied - pain noted. Self-Care/Home Management Treatment Education Patient Education Home Exercise Program Other Education Handout for Hamstring/Neural stretch. Reissued Hip AD strengthening ex. PT-OP-R Modalities Start: 11/19/17 09:00 Freq: Status: Active Protocol: Document 12/06/17 09:07 LRN (Rec: 12/06/17 09:48 [facility] [id number]) Electric Stimulation Electric Stimulation Interferential Current (IFC) Body Location R knee Duration (Minutes) 10 Patient Position Hooklying Combined With Heat/Cold Cold Pack PT-OP-T Assessment and Plan Start: 11/19/17 09:00 Freq: Status: Active Protocol: Document 12/06/17 09:07 LRN (Rec: 12/06/17 09:48 [facility] [id number]) Physical Therapy Assessment Impairments Impairments Gait Pain ROM Soft Tissue Mobility Strength Assessment Summary Assessment Pt not able to tolerate R sidelie hip AD due to R knee pain with positioning. Not able to tolerate supine hip AD due to back pain. He is able to tolerate standing hip AD with T-Band above knee. No palpable tenderness at R. knee , but + Anthony Test; therefore possible mensicus involvment. R. Patella mobility appears good. Physical Therapy Plan Frequency and Duration Frequency of Treatment 2x/Week Duration of Treatment 2 months Plan of Care Start Date 11/19/17 Plan of Care End Date 01/19/18 Next Visit Focus/Plan Next Note Type Treatment Note Next Visit Plan Check for back involvement ( SLR?) and monitor for possible Meniscus involvement. Check for tolerance of R hip AD strengthening with T-Band below knee. Can DC R. Patella mobilization. Strengthen primarily R. LE. HEP handouts when needed.
--- NOTE | 2017-12-10 16:35 | PT.OTN ---
Current Diagnoses Unspecified injury of right lower leg, initial encounter (12/10/17) Physical Therapy Treatment Note PT-OP-A Visit Information Start: 11/19/17 09:00 Freq: Status: Active Protocol: Document 12/10/17 16:20 ML (Rec: 12/10/17 16:35 ML [id number]) Out-Patient Physical Therapy Visit Information Visit Information Visit Type Treatment Note Visit Start Time 09:00 Visit Stop Time 09:55 Total Visit Minutes 55 Visit Number 7/10 Number of PARATRANSIT OPERATOR Visits 0 PT-OP-B Current Condition Start: 11/19/17 09:00 Freq: Status: Active Protocol: Document 11/19/17 09:01 [facility] (Rec: 11/19/17 09:48 [facility] [id number]) Current Condition History of Current Condition Onset Date Mid June Current Complaints med R knee History of Current Condition His doctor recommended PT. About 1.5 years ago he slipped down steps and hurt B knees. After a couple months both were ok. On about July 09, he was on a cruise and slipped on last step and now has burning pain medially. He can push it and rub it to make it go away . Laying on his right side bothers him. It has now gotten to the point where he wants to take care of it. He played football as a kid and did get hit in R leg and it bother him for several months, but was able to cont to play. Reports he ER his RLE when driving and is unsure if it has affect. Since he got a knee brace, it hasn't been as bad (about 3 weeks). Reports some days it is so good he forgets to put on his brace. Pt had stent put in about 1 year ago. Reports he has been doing his cardiac rehab (uses treadmill 40 min, rowing 20 min, UBE 10 min, usually lifts but stopped d/t hand/forearm pain-stopped 6 weeks ago) Prior Treatments and Tests no imaging or chiropractor- helped w/manips & some exercises PT-OP-C Subjective Start: 11/19/17 09:00 Freq: Status: Active Protocol: Document 12/10/17 16:20 ML (Rec: 12/10/17 16:35 ML [id number]) OP-PT Subjective Patient Comments Patient Comments Pt stated that he has noticed a lot of improvement since coming to PT, especially with particular activities that he was experiencing significant pain. But pt mentioned pain with his supine hamstring stretch which was addressed through SLR and treated with PNF of pelvis. PT-OP-F Manual Assessment Start: 11/19/17 09:00 Freq: Status: Active Protocol: Document 11/19/17 09:01 [facility] (Rec: 11/19/17 09:48 [facility] [id number]) Manual Assessments Joint Mobility Assessment Joint Mobility Assessment R: tibia & femur IR with knee bend; L: tibia and femur close to neutral with knee bend PT-OP-G Mobility & Gait Start: 11/19/17 09:00 Freq: Status: Active Protocol: Document 11/19/17 09:01 [facility] (Rec: 11/19/17 09:48 [facility] [id number]) OP Gait Assessment Comments Gait Comments Dec post depression & push off of R side. Foot & tibia in ER and femur IR with stance phase PT-OP-K Range of Motion Start: 11/19/17 09:00 Freq: Status: Active Protocol: Document 11/19/17 09:01 [facility] (Rec: 11/19/17 09:48 [facility] [id number]) Knee Goniometric Range of Motion Knee Measured in Degrees Right Flexion Active (degrees) 113 Extension Active (degrees) 4 PT-OP-L Special Tests Start: 11/19/17 09:00 Freq: Status: Active Protocol: Document 11/19/17 09:01 [facility] (Rec: 11/19/17 09:48 [facility] [id number]) Special Tests Knee Special Tests Varus- 25 Degrees Test Results neg Valgus- 25 Degrees Test Results slight laxity Anthony Test Test Results postive w/ER Posterior Draw Test Results neg Stacie's Test Results neg PT-OP-M Strength Start: 11/19/17 09:00 Freq: Status: Active Protocol: Document 11/19/17 09:01 [facility] (Rec: 11/19/17 09:48 [facility] [id number]) Hip Strength Hip Manual Muscle Testing Right Flexion (L2) 5 Normal Abduction 4- Good- External Rotation 3+ Fair+ Internal Rotation 4 Good Comments pain w/rotation Left Flexion (L2) 5 Normal Abduction 4 Good External Rotation 4+ Good+ Internal Rotation 5 Normal Knee Strength Knee Manual Muscle Testing Right Flexion (S2) 4+ Good+ Extension (L3) 4 Good Left Flexion (S2) 5 Normal Extension (L3) 5 Normal Ankle/Foot Strength Ankle and Foot Manual Muscle Testing Right Dorsiflexion (L4) 5 Normal Plantarflexion (S1) 4+ Good+ Comments seated Left Dorsiflexion (L4) 5 Normal Plantarflexion (S1) 5 Normal PT-OP-Q Treatments Start: 11/19/17 09:00 Freq: Status: Active Protocol: Document 12/10/17 16:20 ML (Rec: 12/10/17 16:35 ML [email or web address]) Cardio Equipment Bicycle (Upright) Duration (Minutes) 6 Resistance 5 Therapeutic Exercises Standing Exercises 5 Standing Exercise Name gait retraining at wall Comments for post depression on R Manual Therapy Treatment Manual Techniques 1 Type PNF R post depression Comments eccentric lengthening (from ant elevation COI) into post depression, assisted movement with UE irradiation to achieve correct movement, progressed to resisted positioning using LE PT-OP-R Modalities Start: 11/19/17 09:00 Freq: Status: Active Protocol: Document 12/10/17 16:20 ML (Rec: 12/10/17 16:35 ML [email or web address]) Electric Stimulation Electric Stimulation Interferential Current (IFC) Body Location R knee Duration (Minutes) 10 Patient Position Hooklying Combined With Heat/Cold Cold Pack PT-OP-T Assessment and Plan Start: 11/19/17 09:00 Freq: Status: Active Protocol: Document 12/10/17 16:20 ML (Rec: 12/10/17 16:35 ML [email or web address]) Physical Therapy Assessment Goals Two Impairment strength Short Term Goal (STG) indep with HEP STG Duration 12/19/17 Out Patient Therapist Goal (LTG) 5/5 BLE to improve stability of R knee and allow pt to return to normal activities with dec pain/ instability. LTG Duration 01/19/18 One Impairment pain Short Term Goal (STG) 3/10 at worst for pain STG Duration 12/19/17 Out Patient Therapist Goal (LTG) 1/10 at worst for pain w/ typical activities LTG Duration 01/19/18 Assessment Summary Assessment Pt had difficulty facilitating the correct pelvic motion through the PNF pattern of ant elevation and post depression , but when cued with UE irradiation, the pt was able to achieve motion. This demonstrated significant improvement in the pt's gait and neural tension that was assessed at the beginning of the session with a SLR. The pt 's noted LBP on L was also releived after PNF work into post depression. Pt was enthused by this treatment and felt like it was really helping him. Physical Therapy Plan Frequency and Duration Frequency of Treatment 2x/Week Duration of Treatment 2 months Plan of Care Start Date 11/19/17 Plan of Care End Date 01/19/18 Next Visit Focus/Plan Next Note Type Treatment Note Next Visit Plan check in about neural tension, assess gait further, continue strengthening and mobility prn
--- NOTE | 2017-12-13 13:34 | PT.OTN ---
Current Diagnoses Unspecified injury of right lower leg, initial encounter (12/13/17) Physical Therapy Treatment Note PT-OP-A Visit Information Start: 11/19/17 09:00 Freq: Status: Active Protocol: Document 12/13/17 11:35 ML (Rec: 12/13/17 11:43 ML [id number]) Out-Patient Physical Therapy Visit Information Visit Information Visit Type Treatment Note Visit Start Time 09:00 Visit Stop Time 09:55 Total Visit Minutes 55 Visit Number 8/10 Number of PALEOLOGY TEACHER Visits 0 PT-OP-B Current Condition Start: 11/19/17 09:00 Freq: Status: Active Protocol: Document 11/19/17 09:01 [facility] (Rec: 11/19/17 09:48 [facility] [id number]) Current Condition History of Current Condition Onset Date Mid June Current Complaints med R knee History of Current Condition His doctor recommended PT. About 1.5 years ago he slipped down steps and hurt B knees. After a couple months both were ok. On about July 09, he was on a cruise and slipped on last step and now has burning pain medially. He can push it and rub it to make it go away . Laying on his right side bothers him. It has now gotten to the point where he wants to take care of it. He played football as a kid and did get hit in R leg and it bother him for several months, but was able to cont to play. Reports he ER his RLE when driving and is unsure if it has affect. Since he got a knee brace, it hasn't been as bad (about 3 weeks). Reports some days it is so good he forgets to put on his brace. Pt had stent put in about 1 year ago. Reports he has been doing his cardiac rehab (uses treadmill 40 min, rowing 20 min, UBE 10 min, usually lifts but stopped d/t hand/forearm pain-stopped 6 weeks ago) Prior Treatments and Tests no imaging or chiropractor- helped w/manips & some exercises PT-OP-C Subjective Start: 11/19/17 09:00 Freq: Status: Active Protocol: Document 12/13/17 11:35 ML (Rec: 12/13/17 11:43 ML [id number]) OP-PT Subjective Patient Comments Patient Comments Pt stated that he is doing well today and that he did his new HEP exercise once since the last visit, but that he thought it was a really good exercise for him. PT-OP-F Manual Assessment Start: 11/19/17 09:00 Freq: Status: Active Protocol: Document 11/19/17 09:01 [facility] (Rec: 11/19/17 09:48 [facility] [id number]) Manual Assessments Joint Mobility Assessment Joint Mobility Assessment R: tibia & femur IR with knee bend; L: tibia and femur close to neutral with knee bend PT-OP-G Mobility & Gait Start: 11/19/17 09:00 Freq: Status: Active Protocol: Document 11/19/17 09:01 [facility] (Rec: 11/19/17 09:48 [facility] [id number]) OP Gait Assessment Comments Gait Comments Dec post depression & push off of R side. Foot & tibia in ER and femur IR with stance phase PT-OP-K Range of Motion Start: 11/19/17 09:00 Freq: Status: Active Protocol: Document 11/19/17 09:01 [facility] (Rec: 11/19/17 09:48 [facility] [id number]) Knee Goniometric Range of Motion Knee Measured in Degrees Right Flexion Active (degrees) 113 Extension Active (degrees) 4 PT-OP-L Special Tests Start: 11/19/17 09:00 Freq: Status: Active Protocol: Document 11/19/17 09:01 [facility] (Rec: 11/19/17 09:48 [facility] [id number]) Special Tests Knee Special Tests Varus- 25 Degrees Test Results neg Valgus- 25 Degrees Test Results slight laxity Anthony Test Test Results postive w/ER Posterior Draw Test Results neg Stacie's Test Results neg PT-OP-M Strength Start: 11/19/17 09:00 Freq: Status: Active Protocol: Document 11/19/17 09:01 [facility] (Rec: 11/19/17 09:48 [facility] [id number]) Hip Strength Hip Manual Muscle Testing Right Flexion (L2) 5 Normal Abduction 4- Good- External Rotation 3+ Fair+ Internal Rotation 4 Good Comments pain w/rotation Left Flexion (L2) 5 Normal Abduction 4 Good External Rotation 4+ Good+ Internal Rotation 5 Normal Knee Strength Knee Manual Muscle Testing Right Flexion (S2) 4+ Good+ Extension (L3) 4 Good Left Flexion (S2) 5 Normal Extension (L3) 5 Normal Ankle/Foot Strength Ankle and Foot Manual Muscle Testing Right Dorsiflexion (L4) 5 Normal Plantarflexion (S1) 4+ Good+ Comments seated Left Dorsiflexion (L4) 5 Normal Plantarflexion (S1) 5 Normal PT-OP-Q Treatments Start: 11/19/17 09:00 Freq: Status: Active Protocol: Document 12/13/17 11:35 ML (Rec: 12/13/17 11:43 ML [id number]) Therapeutic Exercises Supine Exercises 3 Supine Exercise Name quad stretch knee to chest off edge of bed Side bilateral Comments Aleksey test, followed by active knee flex stretch; pull opp knee to chest Standing Exercises 7 Standing Exercise Name SLS Side bilateral Equipment Used mirror Comments difficulty with R>L inidcated by dec balance and inc trunk lean 6 Standing Exercise Name lunge with march Side bilateral Equipment Used bar Comments hold in SLS and verbal cues to push off through the back leg 5 Standing Exercise Name gait retraining at wall Comments for post depression on R Manual Therapy Treatment Manual Techniques 1 Type PNF R post depression Comments eccentric lengthening (from ant elevation COI) into post depression, assisted movement with UE irradiation to achieve correct movement, progressed to resisted positioning using LE PT-OP-R Modalities Start: 11/19/17 09:00 Freq: Status: Active Protocol: Document 12/13/17 11:35 ML (Rec: 12/13/17 11:43 ML [id number]) Electric Stimulation Electric Stimulation Interferential Current (IFC) Body Location R knee Duration (Minutes) 10 Patient Position Hooklying Combined With Heat/Cold Cold Pack PT-OP-T Assessment and Plan Start: 11/19/17 09:00 Freq: Status: Active Protocol: Document 12/13/17 11:35 ML (Rec: 12/13/17 11:43 ML [id number]) Physical Therapy Assessment Goals Two Impairment strength Short Term Goal (STG) indep with HEP STG Duration 12/19/17 Correction Goal (LTG) 5/5 BLE to improve stability of R knee and allow pt to return to normal activities with dec pain/ instability. LTG Duration 01/19/18 One Impairment pain Short Term Goal (STG) 3/10 at worst for pain STG Duration 12/19/17 Correction Goal (LTG) 1/10 at worst for pain w/ typical activities LTG Duration 01/19/18 Assessment Summary Assessment Pt demonstrated his new HEP exercise very well. He continued to move more minimally and stiffly through post depression of his pelvis, but this improved after manual treatment. Pt was then able to integrate this movement well through lunge/ marching exercise and SLS in which he found difficult, but was able to accurate achieve desired motion for exercise. Physical Therapy Plan Frequency and Duration Frequency of Treatment 2x/Week Duration of Treatment 2 months Plan of Care Start Date 11/19/17 Plan of Care End Date 01/19/18 Next Visit Focus/Plan Next Note Type Treatment Note Next Visit Plan Cont to work on SLS activities , balance reactions through ankles, glute activation - pain occurs with rotational movements, pursue addressing this pain
--- NOTE | 2017-12-17 16:57 | PT.OTN ---
Current Diagnoses Unspecified injury of right lower leg, initial encounter (12/17/17) Physical Therapy Treatment Note PT-OP-A Visit Information Start: 11/19/17 09:00 Freq: Status: Active Protocol: Document 12/17/17 10:40 ML (Rec: 12/17/17 10:53 ML [id number]) Out-Patient Physical Therapy Visit Information Visit Information Visit Type Treatment Note Visit Start Time 09:00 Visit Stop Time 09:55 Total Visit Minutes 55 Visit Number 9/10 Number of MARKETING PROGRAMS SPECIALIST Visits 0 PT-OP-B Current Condition Start: 11/19/17 09:00 Freq: Status: Active Protocol: Document 11/19/17 09:01 [facility] (Rec: 11/19/17 09:48 LR [id number]) Current Condition History of Current Condition Onset Date Mid June Current Complaints med R knee History of Current Condition His doctor recommended PT. About 1.5 years ago he slipped down steps and hurt B knees. After a couple months both were ok. On about July 09, he was on a cruise and slipped on last step and now has burning pain medially. He can push it and rub it to make it go away . Laying on his right side bothers him. It has now gotten to the point where he wants to take care of it. He played football as a kid and did get hit in R leg and it bother him for several months, but was able to cont to play. Reports he ER his RLE when driving and is unsure if it has affect. Since he got a knee brace, it hasn't been as bad (about 3 weeks). Reports some days it is so good he forgets to put on his brace. Pt had stent put in about 1 year ago. Reports he has been doing his cardiac rehab (uses treadmill 40 min, rowing 20 min, UBE 10 min, usually lifts but stopped d/t hand/forearm pain-stopped 6 weeks ago) Prior Treatments and Tests no imaging or chiropractor- helped w/manips & some exercises PT-OP-C Subjective Start: 11/19/17 09:00 Freq: Status: Active Protocol: Document 12/17/17 10:40 ML (Rec: 12/17/17 10:53 ML [id number]) OP-PT Subjective Patient Comments Patient Comments Pt states that he had his best week yet, sleeping really well and feeling really good in general. PT-OP-F Manual Assessment Start: 11/19/17 09:00 Freq: Status: Active Protocol: Document 11/19/17 09:01 [facility] (Rec: 11/19/17 09:48 [facility] [id number]) Manual Assessments Joint Mobility Assessment Joint Mobility Assessment R: tibia & femur IR with knee bend; L: tibia and femur close to neutral with knee bend PT-OP-G Mobility & Gait Start: 11/19/17 09:00 Freq: Status: Active Protocol: Document 11/19/17 09:01 [facility] (Rec: 11/19/17 09:48 [facility] [id number]) OP Gait Assessment Comments Gait Comments Dec post depression & push off of R side. Foot & tibia in ER and femur IR with stance phase PT-OP-K Range of Motion Start: 11/19/17 09:00 Freq: Status: Active Protocol: Document 11/19/17 09:01 [facility] (Rec: 11/19/17 09:48 [facility] [id number]) Knee Goniometric Range of Motion Knee Measured in Degrees Right Flexion Active (degrees) 113 Extension Active (degrees) 4 PT-OP-L Special Tests Start: 11/19/17 09:00 Freq: Status: Active Protocol: Document 11/19/17 09:01 [facility] (Rec: 11/19/17 09:48 [facility] [id number]) Special Tests Knee Special Tests Varus- 25 Degrees Test Results neg Valgus- 25 Degrees Test Results slight laxity Anthony Test Test Results postive w/ER Posterior Draw Test Results neg Stacie's Test Results neg PT-OP-M Strength Start: 11/19/17 09:00 Freq: Status: Active Protocol: Document 11/19/17 09:01 [facility] (Rec: 11/19/17 09:48 [facility] [id number]) Hip Strength Hip Manual Muscle Testing Right Flexion (L2) 5 Normal Abduction 4- Good- External Rotation 3+ Fair+ Internal Rotation 4 Good Comments pain w/rotation Left Flexion (L2) 5 Normal Abduction 4 Good External Rotation 4+ Good+ Internal Rotation 5 Normal Knee Strength Knee Manual Muscle Testing Right Flexion (S2) 4+ Good+ Extension (L3) 4 Good Left Flexion (S2) 5 Normal Extension (L3) 5 Normal Ankle/Foot Strength Ankle and Foot Manual Muscle Testing Right Dorsiflexion (L4) 5 Normal Plantarflexion (S1) 4+ Good+ Comments seated Left Dorsiflexion (L4) 5 Normal Plantarflexion (S1) 5 Normal PT-OP-Q Treatments Start: 11/19/17 09:00 Freq: Status: Active Protocol: Document 12/17/17 10:40 ML (Rec: 12/17/17 10:53 ML [id number]) Gym Equipment Shuttle Balance 1 Details red clips Comments WBOS, NBOS, bilat tandem step; static balance and wt shifting forward and backward Therapeutic Exercises Standing Exercises 6 Standing Exercise Name lunge with march Side bilateral Equipment Used bar Comments hold in SLS and verbal cues to push off through the back leg ; trunk twist Manual Therapy Treatment Manual Techniques 1 Type PNF R post depression Comments eccentric lengthening (from ant elevation COI) into post depression, assisted movement with UE irradiation to achieve correct movement, progressed to resisted positioning using LE PT-OP-R Modalities Start: 11/19/17 09:00 Freq: Status: Active Protocol: Document 12/17/17 10:40 ML (Rec: 12/17/17 10:53 ML [id number]) Electric Stimulation Electric Stimulation Interferential Current (IFC) Body Location R knee Duration (Minutes) 10 Patient Position Hooklying Combined With Heat/Cold Cold Pack PT-OP-T Assessment and Plan Start: 11/19/17 09:00 Freq: Status: Active Protocol: Document 12/17/17 10:40 ML (Rec: 12/17/17 10:53 ML [id number]) Physical Therapy Assessment Goals Two Impairment strength Short Term Goal (STG) indep with HEP STG Duration 12/19/17 Snf Goal (LTG) 5/5 BLE to improve stability of R knee and allow pt to return to normal activities with dec pain/ instability. LTG Duration 01/19/18 One Impairment pain Short Term Goal (STG) 3/10 at worst for pain STG Duration 12/19/17 Tree Planter Goal (LTG) 1/10 at worst for pain w/ typical activities LTG Duration 01/19/18 Assessment Summary Assessment Pt was challenged with the shuttle balance exercise today , but showed improvement through the treatment. The pt was unable to achieve the tandem stance in this exercise . When reviewing the pt's new lunging exercise, the pt complained of medial knee pain . Upon terminating exercise and doing post pelvis depression PNF, the pt was able to return to his lunge exercise without pain. Physical Therapy Plan Frequency and Duration Frequency of Treatment 2x/Week Duration of Treatment 2 months Plan of Care Start Date 11/19/17 Plan of Care End Date 01/19/18 Next Visit Focus/Plan Next Note Type Progress Note Next Visit Plan progress lunge into deeper motion, shuttle balance (full tandem and sideways), post pelvis depression prn, SLS, lateral work (lunge or side step)
--- NOTE | 2017-12-20 08:21 | PT.OPPN ---
Current Diagnoses Unspecified injury of right lower leg, initial encounter (12/27/17) Physical Therapy Progress Note PT-OP-A Visit Information Start: 11/19/17 09:00 Freq: Status: Active Protocol: Document 12/27/17 09:00 DL (Rec: 12/27/17 13:09 [facility] [id number]) Out-Patient Physical Therapy Visit Information Visit Information Visit Type Treatment Note Visit Note 05/04 for G-Codes Visit Start Time 09:00 Visit Stop Time 10:00 Total Visit Minutes 60 Visit Number 12 Number of STUDENT LIFE ADVISOR Visits 0 PT-OP-B Current Condition Start: 11/19/17 09:00 Freq: Status: Active Protocol: Document 11/19/17 09:01 [facility] (Rec: 11/19/17 09:48 [facility] [id number]) Current Condition History of Current Condition Onset Date Mid June Current Complaints med R knee History of Current Condition His doctor recommended PT. About 1.5 years ago he slipped down steps and hurt B knees. After a couple months both were ok. On about July 09, he was on a cruise and slipped on last step and now has burning pain medially. He can push it and rub it to make it go away . Laying on his right side bothers him. It has now gotten to the point where he wants to take care of it. He played football as a kid and did get hit in R leg and it bother him for several months, but was able to cont to play. Reports he ER his RLE when driving and is unsure if it has affect. Since he got a knee brace, it hasn't been as bad (about 3 weeks). Reports some days it is so good he forgets to put on his brace. Pt had stent put in about 1 year ago. Reports he has been doing his cardiac rehab (uses treadmill 40 min, rowing 20 min, UBE 10 min, usually lifts but stopped d/t hand/forearm pain-stopped 6 weeks ago) Prior Treatments and Tests no imaging or chiropractor- helped w/manips & some exercises PT-OP-C Subjective Start: 11/19/17 09:00 Freq: Status: Active Protocol: Document 12/27/17 09:00 [facility] (Rec: 12/27/17 13:09 [facility] [id number]) OP-PT Subjective Patient Comments Patient Comments His knee pain continues to be better Patient Reported Progress Improving OP-PT Pain Assessment Comments Pain Comments mild right medial knee pain with some exercises today PT-OP-F Manual Assessment Start: 11/19/17 09:00 Freq: Status: Active Protocol: Document 11/19/17 09:01 [facility] (Rec: 11/19/17 09:48 [facility] [id number]) Manual Assessments Joint Mobility Assessment Joint Mobility Assessment R: tibia & femur IR with knee bend; L: tibia and femur close to neutral with knee bend PT-OP-G Mobility & Gait Start: 11/19/17 09:00 Freq: Status: Active Protocol: Document 11/19/17 09:01 [facility] (Rec: 11/19/17 09:48 [facility] [id number]) OP Gait Assessment Comments Gait Comments Dec post depression & push off of R side. Foot & tibia in ER and femur IR with stance phase PT-OP-K Range of Motion Start: 11/19/17 09:00 Freq: Status: Active Protocol: Document 11/19/17 09:01 [facility] (Rec: 11/19/17 09:48 [facility] [id number]) Knee Goniometric Range of Motion Knee Measured in Degrees Right Flexion Active (degrees) 113 Extension Active (degrees) 4 PT-OP-L Special Tests Start: 11/19/17 09:00 Freq: Status: Active Protocol: Document 11/19/17 09:01 [facility] (Rec: 11/19/17 09:48 [facility] [id number]) Special Tests Knee Special Tests Varus- 25 Degrees Test Results neg Valgus- 25 Degrees Test Results slight laxity Anthony Test Test Results postive w/ER Posterior Draw Test Results neg Stacie's Test Results neg PT-OP-M Strength Start: 11/19/17 09:00 Freq: Status: Active Protocol: Document 11/19/17 09:01 [facility] (Rec: 11/19/17 09:48 [facility] [id number]) Hip Strength Hip Manual Muscle Testing Right Flexion (L2) 5 Normal Abduction 4- Good- External Rotation 3+ Fair+ Internal Rotation 4 Good Comments pain w/rotation Left Flexion (L2) 5 Normal Abduction 4 Good External Rotation 4+ Good+ Internal Rotation 5 Normal Knee Strength Knee Manual Muscle Testing Right Flexion (S2) 4+ Good+ Extension (L3) 4 Good Left Flexion (S2) 5 Normal Extension (L3) 5 Normal Ankle/Foot Strength Ankle and Foot Manual Muscle Testing Right Dorsiflexion (L4) 5 Normal Plantarflexion (S1) 4+ Good+ Comments seated Left Dorsiflexion (L4) 5 Normal Plantarflexion (S1) 5 Normal PT-OP-T Assessment and Plan Start: 11/19/17 09:00 Freq: Status: Active Protocol: Document 12/27/17 09:00 [facility] (Rec: 12/27/17 13:09 [facility] [id number]) Physical Therapy Assessment Goals Two Impairment strength Short Term Goal (STG) indep with HEP STG Duration 12/19/17 - Achieved, progressing as needed Long-Term Goal (LTG) 5/5 BLE to improve stability of R knee and allow pt to return to normal activities with dec pain/ instability. LTG Duration 01/19/18 One Impairment pain Short Term Goal (STG) 3/10 at worst for pain STG Duration 12/19/17 - Achieved Carpenter Helper Hardwood Flooring Goal (LTG) 1/10 at worst for pain w/ typical activities LTG Duration 01/19/18 Progress Towards Goals Progress Towards Goals Progressing Toward Goals Assessment Summary Assessment He continues to present with instability with static and dynamic stance on right LE with c/o right medial knee pain. He reports continued improvement in his pain over- all. He feel therapy is helping Physical Therapy Plan Frequency and Duration Frequency of Treatment 2x/Week Duration of Treatment 2 months Plan of Care Start Date 11/19/17 Plan of Care End Date 01/19/18 Next Visit Focus/Plan Next Note Type Treatment Note Next Visit Plan post depression, wt shifting ( shuttle balance and in normal stance)
--- NOTE | 2017-12-20 14:13 | PT.OTN ---
Current Diagnoses Unspecified injury of right lower leg, initial encounter (12/20/17) Physical Therapy Treatment Note PT-OP-A Visit Information Start: 11/19/17 09:00 Freq: Status: Active Protocol: Document 12/20/17 12:24 ML (Rec: 12/20/17 12:37 ML [id number]) Out-Patient Physical Therapy Visit Information Visit Information Visit Type Progress Note Visit Start Time 09:00 Visit Stop Time 09:55 Total Visit Minutes 55 Visit Number 03/06 Number of E COMMERCE SOLUTION ARCHITECT Visits 0 PT-OP-B Current Condition Start: 11/19/17 09:00 Freq: Status: Active Protocol: Document 11/19/17 09:01 LR (Rec: 11/19/17 09:48 [facility] [id number]) Current Condition History of Current Condition Onset Date Mid June Current Complaints med R knee History of Current Condition His doctor recommended PT. About 1.5 years ago he slipped down steps and hurt B knees. After a couple months both were ok. On about July 09, he was on a cruise and slipped on last step and now has burning pain medially. He can push it and rub it to make it go away . Laying on his right side bothers him. It has now gotten to the point where he wants to take care of it. He played football as a kid and did get hit in R leg and it bother him for several months, but was able to cont to play. Reports he ER his RLE when driving and is unsure if it has affect. Since he got a knee brace, it hasn't been as bad (about 3 weeks). Reports some days it is so good he forgets to put on his brace. Pt had stent put in about 1 year ago. Reports he has been doing his cardiac rehab (uses treadmill 40 min, rowing 20 min, UBE 10 min, usually lifts but stopped d/t hand/forearm pain-stopped 6 weeks ago) Prior Treatments and Tests no imaging or chiropractor- helped w/manips & some exercises PT-OP-C Subjective Start: 11/19/17 09:00 Freq: Status: Active Protocol: Document 12/20/17 12:24 ML (Rec: 12/20/17 12:37 ML [id number]) OP-PT Subjective Patient Comments Patient Comments Pt states that he feels really good after leaving therapy, but began to have pain again in his HEP that he doesn't have while doing them after PT . PT-OP-F Manual Assessment Start: 11/19/17 09:00 Freq: Status: Active Protocol: Document 11/19/17 09:01 [facility] (Rec: 11/19/17 09:48 [facility] [id number]) Manual Assessments Joint Mobility Assessment Joint Mobility Assessment R: tibia & femur IR with knee bend; L: tibia and femur close to neutral with knee bend PT-OP-G Mobility & Gait Start: 11/19/17 09:00 Freq: Status: Active Protocol: Document 11/19/17 09:01 [facility] (Rec: 11/19/17 09:48 [facility] [id number]) OP Gait Assessment Comments Gait Comments Dec post depression & push off of R side. Foot & tibia in ER and femur IR with stance phase PT-OP-K Range of Motion Start: 11/19/17 09:00 Freq: Status: Active Protocol: Document 11/19/17 09:01 [facility] (Rec: 11/19/17 09:48 [facility] [id number]) Knee Goniometric Range of Motion Knee Measured in Degrees Right Flexion Active (degrees) 113 Extension Active (degrees) 4 PT-OP-L Special Tests Start: 11/19/17 09:00 Freq: Status: Active Protocol: Document 11/19/17 09:01 [facility] (Rec: 11/19/17 09:48 [facility] [id number]) Special Tests Knee Special Tests Varus- 25 Degrees Test Results neg Valgus- 25 Degrees Test Results slight laxity Anthony Test Test Results postive w/ER Posterior Draw Test Results neg Stacie's Test Results neg PT-OP-M Strength Start: 11/19/17 09:00 Freq: Status: Active Protocol: Document 11/19/17 09:01 [facility] (Rec: 11/19/17 09:48 [facility] [id number]) Hip Strength Hip Manual Muscle Testing Right Flexion (L2) 5 Normal Abduction 4- Good- External Rotation 3+ Fair+ Internal Rotation 4 Good Comments pain w/rotation Left Flexion (L2) 5 Normal Abduction 4 Good External Rotation 4+ Good+ Internal Rotation 5 Normal Knee Strength Knee Manual Muscle Testing Right Flexion (S2) 4+ Good+ Extension (L3) 4 Good Left Flexion (S2) 5 Normal Extension (L3) 5 Normal Ankle/Foot Strength Ankle and Foot Manual Muscle Testing Right Dorsiflexion (L4) 5 Normal Plantarflexion (S1) 4+ Good+ Comments seated Left Dorsiflexion (L4) 5 Normal Plantarflexion (S1) 5 Normal PT-OP-Q Treatments Start: 11/19/17 09:00 Freq: Status: Active Protocol: Document 12/20/17 12:24 ML (Rec: 12/20/17 12:37 ML [id number]) Gym Equipment Shuttle Balance 1 Details red clips Comments NBOS w/wt shift, bilat tandem static, side ways WBOS static and wt shift, NBOS static Manual Therapy Treatment Soft Tissue Mobilization 2 Body Location R piriformis Mobilization Type Myofascial Release Sustained Pressure Trigger Point Release Body Position Sidelying Comments active ER to assist Joint Mobilizations 2 Joint R hip Comments on axis ER, FM w/neuro re-ed for range Manual Techniques 1 Type PNF R post depression Comments eccentric lengthening (from ant elevation COI) into post depression, assisted movement with UE irradiation to achieve correct movement, progressed to resisted positioning using LE PT-OP-R Modalities Start: 11/19/17 09:00 Freq: Status: Active Protocol: Document 12/20/17 12:24 ML (Rec: 12/20/17 12:37 ML [id number]) Electric Stimulation Electric Stimulation Interferential Current (IFC) Body Location R knee Duration (Minutes) 10 Patient Position Hooklying Combined With Heat/Cold Cold Pack PT-OP-T Assessment and Plan Start: 11/19/17 09:00 Freq: Status: Active Protocol: Document 12/20/17 12:24 ML (Rec: 12/20/17 12:37 ML [id number]) Physical Therapy Assessment Goals Two Impairment strength Short Term Goal (STG) indep with HEP STG Duration 12/19/17 - Achieved, progressing as needed Computer Network Support Specialist Goal (LTG) 5/5 BLE to improve stability of R knee and allow pt to return to normal activities with dec pain/ instability. LTG Duration 01/19/18 One Impairment pain Short Term Goal (STG) 3/10 at worst for pain STG Duration 12/19/17 - Achieved Half-Way Goal (LTG) 1/10 at worst for pain w/ typical activities LTG Duration 01/19/18 Assessment Summary Assessment Pt continues to show improvement and relief of pain with post pelvis depression faciliation. Pt mentioned sharp and burning pain in his piriformis region, and when palpated, the pt showed significant tenderness and tightness. The pt was able to release some of that muscular tightness through manual mobilization. Pt was very tender to palpation of his sacrum and PT was unable to work on mobilizing joint. Physical Therapy Plan Frequency and Duration Frequency of Treatment 2x/Week Duration of Treatment 2 months Plan of Care Start Date 11/19/17 Plan of Care End Date 01/19/18 Next Visit Focus/Plan Next Note Type Treatment Note Next Visit Plan manually assess piriformis tightness, sacrum and annominate position, progress lunge into deeper motion, shuttle balance (full tandem and sideways), post pelvis depression prn, SLS, lateral work (lunge or side step)
--- NOTE | 2017-12-24 17:12 | PT.OTN ---
Current Diagnoses Unspecified injury of right lower leg, initial encounter (12/24/17) Physical Therapy Treatment Note PT-OP-A Visit Information Start: 11/19/17 09:00 Freq: Status: Active Protocol: Document 12/24/17 11:31 ML (Rec: 12/24/17 11:37 ML [email or web address]) Out-Patient Physical Therapy Visit Information Visit Information Visit Type Progress Note Visit Start Time 09:00 Visit Stop Time 09:55 Total Visit Minutes 55 Visit Number 2/10 Number of HAND ALMOND BLANCHER Visits 0 PT-OP-B Current Condition Start: 11/19/17 09:00 Freq: Status: Active Protocol: Document 11/19/17 09:01 [facility] (Rec: 11/19/17 09:48 [facility] [id number]) Current Condition History of Current Condition Onset Date Mid June Current Complaints med R knee History of Current Condition His doctor recommended PT. About 1.5 years ago he slipped down steps and hurt B knees. After a couple months both were ok. On about July 09, he was on a cruise and slipped on last step and now has burning pain medially. He can push it and rub it to make it go away . Laying on his right side bothers him. It has now gotten to the point where he wants to take care of it. He played football as a kid and did get hit in R leg and it bother him for several months, but was able to cont to play. Reports he ER his RLE when driving and is unsure if it has affect. Since he got a knee brace, it hasn't been as bad (about 3 weeks). Reports some days it is so good he forgets to put on his brace. Pt had stent put in about 1 year ago. Reports he has been doing his cardiac rehab (uses treadmill 40 min, rowing 20 min, UBE 10 min, usually lifts but stopped d/t hand/forearm pain-stopped 6 weeks ago) Prior Treatments and Tests no imaging or chiropractor- helped w/manips & some exercises PT-OP-C Subjective Start: 11/19/17 09:00 Freq: Status: Active Protocol: Document 12/24/17 11:31 ML (Rec: 12/24/17 11:37 ML [email or web address]) OP-PT Subjective Patient Comments Patient Comments Pt states that this is one of his best weeks yet and has had no pain with HEP. PT-OP-F Manual Assessment Start: 11/19/17 09:00 Freq: Status: Active Protocol: Document 11/19/17 09:01 [facility] (Rec: 11/19/17 09:48 [facility] [id number]) Manual Assessments Joint Mobility Assessment Joint Mobility Assessment R: tibia & femur IR with knee bend; L: tibia and femur close to neutral with knee bend PT-OP-G Mobility & Gait Start: 11/19/17 09:00 Freq: Status: Active Protocol: Document 11/19/17 09:01 [facility] (Rec: 11/19/17 09:48 [facility] [id number]) OP Gait Assessment Comments Gait Comments Dec post depression & push off of R side. Foot & tibia in ER and femur IR with stance phase PT-OP-K Range of Motion Start: 11/19/17 09:00 Freq: Status: Active Protocol: Document 11/19/17 09:01 [facility] (Rec: 11/19/17 09:48 [facility] [id number]) Knee Goniometric Range of Motion Knee Measured in Degrees Right Flexion Active (degrees) 113 Extension Active (degrees) 4 PT-OP-L Special Tests Start: 11/19/17 09:00 Freq: Status: Active Protocol: Document 11/19/17 09:01 [facility] (Rec: 11/19/17 09:48 [facility] [id number]) Special Tests Knee Special Tests Varus- 25 Degrees Test Results neg Valgus- 25 Degrees Test Results slight laxity Anthony Test Test Results postive w/ER Posterior Draw Test Results neg Stacie's Test Results neg PT-OP-M Strength Start: 11/19/17 09:00 Freq: Status: Active Protocol: Document 11/19/17 09:01 [facility] (Rec: 11/19/17 09:48 [facility] [id number]) Hip Strength Hip Manual Muscle Testing Right Flexion (L2) 5 Normal Abduction 4- Good- External Rotation 3+ Fair+ Internal Rotation 4 Good Comments pain w/rotation Left Flexion (L2) 5 Normal Abduction 4 Good External Rotation 4+ Good+ Internal Rotation 5 Normal Knee Strength Knee Manual Muscle Testing Right Flexion (S2) 4+ Good+ Extension (L3) 4 Good Left Flexion (S2) 5 Normal Extension (L3) 5 Normal Ankle/Foot Strength Ankle and Foot Manual Muscle Testing Right Dorsiflexion (L4) 5 Normal Plantarflexion (S1) 4+ Good+ Comments seated Left Dorsiflexion (L4) 5 Normal Plantarflexion (S1) 5 Normal PT-OP-Q Treatments Start: 11/19/17 09:00 Freq: Status: Active Protocol: Document 12/24/17 11:31 ML (Rec: 12/24/17 11:37 ML [email or web address]) Therapeutic Exercises Supine Exercises 4 Supine Exercise Name piriformis stretch Comments knee pull to opp shoulder Prone Exercises 1 Prone Exercise Name ER Resistance none Standing Exercises 10 Standing Exercise Name wt shifting Comments with mini squat and straight legs, cues for trunk and pelvis position 9 Standing Exercise Name side step w/squat 8 Standing Exercise Name side step lunge Comments terminated due to pain and unable to achieve appropriate knee position 6 Standing Exercise Name lunge with march Side bilateral Equipment Used bar Comments hold in SLS and verbal cues to push off through the back leg ; trunk twist Manual Therapy Treatment Soft Tissue Mobilization 2 Body Location R piriformis Mobilization Type Myofascial Release Sustained Pressure Trigger Point Release Body Position Sidelying Comments active ER to assist Joint Mobilizations 2 Joint R hip Comments on axis ER, FM w/neuro re-ed for range Manual Techniques 1 Type PNF R post depression Comments eccentric lengthening (from ant elevation COI) into post depression, assisted movement with UE irradiation to achieve correct movement, progressed to resisted positioning using LE PT-OP-R Modalities Start: 11/19/17 09:00 Freq: Status: Active Protocol: Document 12/24/17 11:31 ML (Rec: 12/24/17 11:38 ML [email or web address]) Electric Stimulation Electric Stimulation Interferential Current (IFC) Body Location R knee Duration (Minutes) 10 Patient Position Hooklying Combined With Heat/Cold Cold Pack PT-OP-T Assessment and Plan Start: 11/19/17 09:00 Freq: Status: Active Protocol: Document 12/24/17 11:31 ML (Rec: 12/24/17 11:37 ML [email or web address]) Physical Therapy Assessment Goals Two Impairment strength Short Term Goal (STG) indep with HEP STG Duration 12/19/17 - Achieved, progressing as needed [employer] Machine Operator Goal (LTG) 5/5 BLE to improve stability of R knee and allow pt to return to normal activities with dec pain/ instability. LTG Duration 01/19/18 One Impairment pain Short Term Goal (STG) 3/10 at worst for pain STG Duration 12/19/17 - Achieved Detention Goal (LTG) 1/10 at worst for pain w/ typical activities LTG Duration 01/19/18 Assessment Summary Assessment Pt still required demonstration for HEP exercise . The pt also cont to have difficulty with trunk and pelvis position in lateral motions. Pt demonstrated difficulty with wt shifting appropriately laterally but improved with verbal and tactile cueing. pt improved significantly with hip ER when mobilized. Physical Therapy Plan Frequency and Duration Frequency of Treatment 2x/Week Duration of Treatment 2 months Plan of Care Start Date 11/19/17 Plan of Care End Date 01/19/18 Next Visit Focus/Plan Next Note Type Treatment Note Next Visit Plan hip rot, post depression, wt shifting (shuttle balance and in normal stance)
--- NOTE | 2017-12-27 09:00 | PT.OTN ---
Current Diagnoses Unspecified injury of right lower leg, initial encounter (12/27/17) Physical Therapy Treatment Note PT-OP-A Visit Information Start: 11/19/17 09:00 Freq: Status: Active Protocol: Document 12/27/17 09:00 DL (Rec: 12/27/17 13:09 [facility] [id number]) Out-Patient Physical Therapy Visit Information Visit Information Visit Type Treatment Note Visit Note 05/04 for G-Codes Visit Start Time 09:00 Visit Stop Time 10:00 Total Visit Minutes 60 Visit Number 12 Number of BOILER FIREMAN Visits 0 PT-OP-B Current Condition Start: 11/19/17 09:00 Freq: Status: Active Protocol: Document 11/19/17 09:01 [facility] (Rec: 11/19/17 09:48 [facility] [id number]) Current Condition History of Current Condition Onset Date Mid June Current Complaints med R knee History of Current Condition His doctor recommended PT. About 1.5 years ago he slipped down steps and hurt B knees. After a couple months both were ok. On about July 09, he was on a cruise and slipped on last step and now has burning pain medially. He can push it and rub it to make it go away . Laying on his right side bothers him. It has now gotten to the point where he wants to take care of it. He played football as a kid and did get hit in R leg and it bother him for several months, but was able to cont to play. Reports he ER his RLE when driving and is unsure if it has affect. Since he got a knee brace, it hasn't been as bad (about 3 weeks). Reports some days it is so good he forgets to put on his brace. Pt had stent put in about 1 year ago. Reports he has been doing his cardiac rehab (uses treadmill 40 min, rowing 20 min, UBE 10 min, usually lifts but stopped d/t hand/forearm pain-stopped 6 weeks ago) Prior Treatments and Tests no imaging or chiropractor- helped w/manips & some exercises PT-OP-C Subjective Start: 11/19/17 09:00 Freq: Status: Active Protocol: Document 12/27/17 09:00 DLM (Rec: 12/27/17 13:09 [facility] [id number]) OP-PT Subjective Patient Comments Patient Comments His knee pain continues to be better Patient Reported Progress Improving OP-PT Pain Assessment Comments Pain Comments mild right medial knee pain with some exercises today PT-OP-F Manual Assessment Start: 11/19/17 09:00 Freq: Status: Active Protocol: Document 11/19/17 09:01 [facility] (Rec: 11/19/17 09:48 [facility] [id number]) Manual Assessments Joint Mobility Assessment Joint Mobility Assessment R: tibia & femur IR with knee bend; L: tibia and femur close to neutral with knee bend PT-OP-G Mobility & Gait Start: 11/19/17 09:00 Freq: Status: Active Protocol: Document 11/19/17 09:01 [facility] (Rec: 11/19/17 09:48 [facility] [id number]) OP Gait Assessment Comments Gait Comments Dec post depression & push off of R side. Foot & tibia in ER and femur IR with stance phase PT-OP-K Range of Motion Start: 11/19/17 09:00 Freq: Status: Active Protocol: Document 11/19/17 09:01 [facility] (Rec: 11/19/17 09:48 [facility] [id number]) Knee Goniometric Range of Motion Knee Measured in Degrees Right Flexion Active (degrees) 113 Extension Active (degrees) 4 PT-OP-L Special Tests Start: 11/19/17 09:00 Freq: Status: Active Protocol: Document 11/19/17 09:01 [facility] (Rec: 11/19/17 09:48 [facility] [id number]) Special Tests Knee Special Tests Varus- 25 Degrees Test Results neg Valgus- 25 Degrees Test Results slight laxity Anthony Test Test Results postive w/ER Posterior Draw Test Results neg Stacie's Test Results neg PT-OP-M Strength Start: 11/19/17 09:00 Freq: Status: Active Protocol: Document 11/19/17 09:01 [facility] (Rec: 11/19/17 09:48 [facility] [id number]) Hip Strength Hip Manual Muscle Testing Right Flexion (L2) 5 Normal Abduction 4- Good- External Rotation 3+ Fair+ Internal Rotation 4 Good Comments pain w/rotation Left Flexion (L2) 5 Normal Abduction 4 Good External Rotation 4+ Good+ Internal Rotation 5 Normal Knee Strength Knee Manual Muscle Testing Right Flexion (S2) 4+ Good+ Extension (L3) 4 Good Left Flexion (S2) 5 Normal Extension (L3) 5 Normal Ankle/Foot Strength Ankle and Foot Manual Muscle Testing Right Dorsiflexion (L4) 5 Normal Plantarflexion (S1) 4+ Good+ Comments seated Left Dorsiflexion (L4) 5 Normal Plantarflexion (S1) 5 Normal PT-OP-Q Treatments Start: 11/19/17 09:00 Freq: Status: Active Protocol: Document 12/27/17 09:00 DLM (Rec: 12/27/17 13:09 DL [id number]) Therapeutic Exercises Supine Exercises 5 Supine Exercise Name therapist assisted hip IR/ER stretching Side right Comments he reports less pain when therapist assists 4 Supine Exercise Name piriformis stretch Side bilateral Reps/Minutes 3 reps each Comments knee pull to opp shoulder Prone Exercises 1 Prone Exercise Name ER Side right Standing Exercises 10 Standing Exercise Name wt shifting Comments with mini squat and straight legs, cues for trunk and pelvis position 9 Standing Exercise Name side step, and w/squat Side bilateral Equipment Used mild right knee pain with stepping left, no pain to right Comments physical cues to avoid pelvic rotation during left sidestepping 7 Standing Exercise Name SLS Side bilateral Comments focus on stabalization 6 Standing Exercise Name lunge with march Side bilateral Equipment Used bar Comments hold in SLS and verbal cues to push off through the back leg ; trunk twist 1 Standing Exercise Name Calf Stretch Side bilateral Equipment Used ROSS Manual Therapy Treatment Soft Tissue Mobilization 3 Body Location hamstring, right Mobilization Type Myofascial Release Strumming Sustained Pressure Trigger Point Release Intensity/Depth Moderate Body Position Prone 2 Body Location R piriformis Mobilization Type Myofascial Release Strumming Sustained Pressure Trigger Point Release Body Position Prone PT-OP-R Modalities Start: 11/19/17 09:00 Freq: Status: Active Protocol: Document 12/27/17 09:00 DLM (Rec: 12/27/17 13:09 [facility] [id number]) Electric Stimulation Electric Stimulation Interferential Current (IFC) Body Location R knee Duration (Minutes) 10 Patient Position Hooklying Combined With Heat/Cold Cold Pack PT-OP-T Assessment and Plan Start: 11/19/17 09:00 Freq: Status: Active Protocol: Document 12/27/17 09:00 DLM (Rec: 12/27/17 13:09 [facility] [id number]) Physical Therapy Assessment Goals Two Impairment strength Short Term Goal (STG) indep with HEP STG Duration 12/19/17 - Achieved, progressing as needed Senior Care Goal (LTG) 5/5 BLE to improve stability of R knee and allow pt to return to normal activities with dec pain/ instability. LTG Duration 01/19/18 One Impairment pain Short Term Goal (STG) 3/10 at worst for pain STG Duration 12/19/17 - Achieved Loan Assistant Goal (LTG) 1/10 at worst for pain w/ typical activities LTG Duration 01/19/18 Progress Towards Goals Progress Towards Goals Progressing Toward Goals Assessment Summary Assessment He continues to present with instability with static and dynamic stance on right LE with c/o right medial knee pain. He reports continued improvement in his pain over- all. He feel therapy is helping Physical Therapy Plan Frequency and Duration Frequency of Treatment 2x/Week Duration of Treatment 2 months Plan of Care Start Date 11/19/17 Plan of Care End Date 01/19/18 Next Visit Focus/Plan Next Note Type Treatment Note Next Visit Plan post depression, wt shifting ( shuttle balance and in normal stance)
--- NOTE | 2018-01-07 14:38 | PT.OTN ---
Current Diagnoses Unspecified injury of right lower leg, initial encounter (01/07/18) Physical Therapy Treatment Note PT-OP-A Visit Information Start: 11/19/17 09:00 Freq: Status: Active Protocol: Document 01/07/18 12:10 ML (Rec: 01/07/18 12:16 ML [email or web address]) Out-Patient Physical Therapy Visit Information Visit Information Visit Type Treatment Note Visit Note 06/04 for G-Codes Visit Start Time 09:00 Visit Stop Time 10:00 Total Visit Minutes 60 Visit Number 13 Number of PORTER BAGGAGE Visits 0 PT-OP-B Current Condition Start: 11/19/17 09:00 Freq: Status: Active Protocol: Document 11/19/17 09:01 [facility] (Rec: 11/19/17 09:48 [facility] [id number]) Current Condition History of Current Condition Onset Date Mid June Current Complaints med R knee History of Current Condition His doctor recommended PT. About 1.5 years ago he slipped down steps and hurt B knees. After a couple months both were ok. On about July 09, he was on a cruise and slipped on last step and now has burning pain medially. He can push it and rub it to make it go away . Laying on his right side bothers him. It has now gotten to the point where he wants to take care of it. He played football as a kid and did get hit in R leg and it bother him for several months, but was able to cont to play. Reports he ER his RLE when driving and is unsure if it has affect. Since he got a knee brace, it hasn't been as bad (about 3 weeks). Reports some days it is so good he forgets to put on his brace. Pt had stent put in about 1 year ago. Reports he has been doing his cardiac rehab (uses treadmill 40 min, rowing 20 min, UBE 10 min, usually lifts but stopped d/t hand/forearm pain-stopped 6 weeks ago) Prior Treatments and Tests no imaging or chiropractor- helped w/manips & some exercises PT-OP-C Subjective Start: 11/19/17 09:00 Freq: Status: Active Protocol: Document 01/07/18 12:10 ML (Rec: 01/07/18 12:16 ML [email or web address]) OP-PT Subjective Patient Comments Patient Comments Pt reported doing a lot fo activity this weekend, working in his yard lots and going for a couple mile walk. PT-OP-F Manual Assessment Start: 11/19/17 09:00 Freq: Status: Active Protocol: Document 11/19/17 09:01 [facility] (Rec: 11/19/17 09:48 [facility] [id number]) Manual Assessments Joint Mobility Assessment Joint Mobility Assessment R: tibia & femur IR with knee bend; L: tibia and femur close to neutral with knee bend PT-OP-G Mobility & Gait Start: 11/19/17 09:00 Freq: Status: Active Protocol: Document 11/19/17 09:01 [facility] (Rec: 11/19/17 09:48 [facility] [id number]) OP Gait Assessment Comments Gait Comments Dec post depression & push off of R side. Foot & tibia in ER and femur IR with stance phase PT-OP-K Range of Motion Start: 11/19/17 09:00 Freq: Status: Active Protocol: Document 11/19/17 09:01 [facility] (Rec: 11/19/17 09:48 [facility] [id number]) Knee Goniometric Range of Motion Knee Measured in Degrees Right Flexion Active (degrees) 113 Extension Active (degrees) 4 PT-OP-L Special Tests Start: 11/19/17 09:00 Freq: Status: Active Protocol: Document 11/19/17 09:01 [facility] (Rec: 11/19/17 09:48 [facility] [id number]) Special Tests Knee Special Tests Varus- 25 Degrees Test Results neg Valgus- 25 Degrees Test Results slight laxity Anthony Test Test Results postive w/ER Posterior Draw Test Results neg Stacie's Test Results neg PT-OP-M Strength Start: 11/19/17 09:00 Freq: Status: Active Protocol: Document 11/19/17 09:01 [facility] (Rec: 11/19/17 09:48 [facility] [id number]) Hip Strength Hip Manual Muscle Testing Right Flexion (L2) 5 Normal Abduction 4- Good- External Rotation 3+ Fair+ Internal Rotation 4 Good Comments pain w/rotation Left Flexion (L2) 5 Normal Abduction 4 Good External Rotation 4+ Good+ Internal Rotation 5 Normal Knee Strength Knee Manual Muscle Testing Right Flexion (S2) 4+ Good+ Extension (L3) 4 Good Left Flexion (S2) 5 Normal Extension (L3) 5 Normal Ankle/Foot Strength Ankle and Foot Manual Muscle Testing Right Dorsiflexion (L4) 5 Normal Plantarflexion (S1) 4+ Good+ Comments seated Left Dorsiflexion (L4) 5 Normal Plantarflexion (S1) 5 Normal PT-OP-Q Treatments Start: 11/19/17 09:00 Freq: Status: Active Protocol: Document 01/07/18 12:10 ML (Rec: 01/07/18 12:16 ML [email or web address]) Manual Therapy Treatment Soft Tissue Mobilization 3 Body Location hamstring, right Mobilization Type Myofascial Release Strumming Sustained Pressure Trigger Point Release Intensity/Depth Moderate Body Position Prone Comments active CR of knee flex Joint Mobilizations 3 Joint sacrum Direction PA Comments inf R>L but did both L and R 1 Joint R inominate Direction lateral for distraction Comments with active assisted IR/ER Manual Techniques 1 Type PNF R post depression Comments eccentric lengthening (from ant elevation COI) into post depression, assisted movement with UE irradiation to achieve correct movement, progressed to resisted positioning using LE PT-OP-R Modalities Start: 11/19/17 09:00 Freq: Status: Active Protocol: Document 01/07/18 12:10 ML (Rec: 01/07/18 12:17 ML [email or web address]) Electric Stimulation Electric Stimulation Interferential Current (IFC) Body Location R knee Duration (Minutes) 10 Patient Position Hooklying Combined With Heat/Cold Cold Pack PT-OP-T Assessment and Plan Start: 11/19/17 09:00 Freq: Status: Active Protocol: Document 01/07/18 12:10 ML (Rec: 01/07/18 12:16 ML [email or web address]) Physical Therapy Assessment Goals Two Impairment strength Short Term Goal (STG) indep with HEP STG Duration 12/19/17 - Achieved, progressing as needed [facility] Goal (LTG) 5/5 BLE to improve stability of R knee and allow pt to return to normal activities with dec pain/ instability. LTG Duration 01/19/18 One Impairment pain Short Term Goal (STG) 3/10 at worst for pain STG Duration 12/19/17 - Achieved [facility] Goal (LTG) 1/10 at worst for pain w/ typical activities LTG Duration 01/19/18 Assessment Summary Assessment Pt's gait lacked ant elevation on R which was addressed with neuro re-ed of pelvis. But when working through resisted movements of his LE and pelvis , the pt reported SI pain that was addressed with mobilizations and the pt noted more mobility. Physical Therapy Plan Frequency and Duration Frequency of Treatment 2x/Week Duration of Treatment 2 months Plan of Care Start Date 11/19/17 Plan of Care End Date 01/19/18 Next Visit Focus/Plan Next Note Type Treatment Note Next Visit Plan pelvis PNF prn, lunge without locked knee (fwd and lat), wt shifting without locking knee on shuttle balance
--- NOTE | 2018-02-11 12:47 | PT.OTN ---
Current Diagnoses Unspecified injury of right lower leg, initial encounter (02/11/18) Physical Therapy Treatment Note PT-OP-A Visit Information Start: 11/19/17 09:00 Freq: Status: Active Protocol: Document 02/11/18 12:31 SA (Rec: 02/11/18 12:47 [email or web address]) Out-Patient Physical Therapy Visit Information Visit Information Visit Type Treatment Note Visit Note 07/04 for G codes Visit Start Time 09:00 Visit Stop Time 09:48 Total Visit Minutes 48 Visit Number 14 Number of PADDED BOX SEWER Visits 1 PT-OP-B Current Condition Start: 11/19/17 09:00 Freq: Status: Active Protocol: Document 11/19/17 09:01 [facility] (Rec: 11/19/17 09:48 [facility] [id number]) Current Condition History of Current Condition Onset Date Mid June Current Complaints med R knee History of Current Condition His doctor recommended PT. About 1.5 years ago he slipped down steps and hurt B knees. After a couple months both were ok. On about July 09, he was on a cruise and slipped on last step and now has burning pain medially. He can push it and rub it to make it go away . Laying on his right side bothers him. It has now gotten to the point where he wants to take care of it. He played football as a kid and did get hit in R leg and it bother him for several months, but was able to cont to play. Reports he ER his RLE when driving and is unsure if it has affect. Since he got a knee brace, it hasn't been as bad (about 3 weeks). Reports some days it is so good he forgets to put on his brace. Pt had stent put in about 1 year ago. Reports he has been doing his cardiac rehab (uses treadmill 40 min, rowing 20 min, UBE 10 min, usually lifts but stopped d/t hand/forearm pain-stopped 6 weeks ago) Prior Treatments and Tests no imaging or chiropractor- helped w/manips & some exercises PT-OP-C Subjective Start: 11/19/17 09:00 Freq: Status: Active Protocol: Document 02/11/18 12:31 SA (Rec: 02/11/18 12:47 [email or web address]) OP-PT Subjective Patient Comments Patient Comments Pt reports having a fall on the stairs outside and injuring little on L foot. Has not been in in 3 weeks and is finally feeling better, ambualtion has improved. R knee feeling pretty good despite fall. PT-OP-F Manual Assessment Start: 11/19/17 09:00 Freq: Status: Active Protocol: Document 11/19/17 09:01 [facility] (Rec: 11/19/17 09:48 [facility] [id number]) Manual Assessments Joint Mobility Assessment Joint Mobility Assessment R: tibia & femur IR with knee bend; L: tibia and femur close to neutral with knee bend PT-OP-G Mobility & Gait Start: 11/19/17 09:00 Freq: Status: Active Protocol: Document 11/19/17 09:01 [facility] (Rec: 11/19/17 09:48 [facility] [id number]) OP Gait Assessment Comments Gait Comments Dec post depression & push off of R side. Foot & tibia in ER and femur IR with stance phase PT-OP-K Range of Motion Start: 11/19/17 09:00 Freq: Status: Active Protocol: Document 11/19/17 09:01 [facility] (Rec: 11/19/17 09:48 [facility] [id number]) Knee Goniometric Range of Motion Knee Measured in Degrees Right Flexion Active (degrees) 113 Extension Active (degrees) 4 PT-OP-L Special Tests Start: 11/19/17 09:00 Freq: Status: Active Protocol: Document 11/19/17 09:01 [facility] (Rec: 11/19/17 09:48 [facility] [id number]) Special Tests Knee Special Tests Varus- 25 Degrees Test Results neg Valgus- 25 Degrees Test Results slight laxity Anthony Test Test Results postive w/ER Posterior Draw Test Results neg Stacie's Test Results neg PT-OP-M Strength Start: 11/19/17 09:00 Freq: Status: Active Protocol: Document 11/19/17 09:01 [facility] (Rec: 11/19/17 09:48 [facility] [id number]) Hip Strength Hip Manual Muscle Testing Right Flexion (L2) 5 Normal Abduction 4- Good- External Rotation 3+ Fair+ Internal Rotation 4 Good Comments pain w/rotation Left Flexion (L2) 5 Normal Abduction 4 Good External Rotation 4+ Good+ Internal Rotation 5 Normal Knee Strength Knee Manual Muscle Testing Right Flexion (S2) 4+ Good+ Extension (L3) 4 Good Left Flexion (S2) 5 Normal Extension (L3) 5 Normal Ankle/Foot Strength Ankle and Foot Manual Muscle Testing Right Dorsiflexion (L4) 5 Normal Plantarflexion (S1) 4+ Good+ Comments seated Left Dorsiflexion (L4) 5 Normal Plantarflexion (S1) 5 Normal PT-OP-Q Treatments Start: 11/19/17 09:00 Freq: Status: Active Protocol: Document 02/11/18 12:31 (Rec: 02/11/18 12:47 [email or web address]) Cardio Equipment Recumbent Elliptical (Biodex) Duration (Minutes) 5 Resistance 5 Therapeutic Exercises Supine Exercises 5 Supine Exercise Name therapist assisted hip IR/ER stretching Side right Comments he reports less pain when therapist assists 4 Supine Exercise Name piriformis stretch Side bilateral Reps/Minutes 3 reps each Comments knee pull to opp shoulder Standing Exercises 7 Standing Exercise Name SLS Side bilateral Comments focus on stabalization 1 Standing Exercise Name Calf Stretch Side bilateral Equipment Used ROSS Manual Therapy Treatment Soft Tissue Mobilization 3 Body Location R ITB/hamstrings Mobilization Type Myofascial Release Strumming Sustained Pressure Trigger Point Release Intensity/Depth Moderate Body Position Prone PT-OP-R Modalities Start: 11/19/17 09:00 Freq: Status: Active Protocol: Document 02/11/18 12:31 [facility] (Rec: 02/11/18 12:47 [email or web address]) Electric Stimulation Electric Stimulation Interferential Current (IFC) Body Location R knee Duration (Minutes) 15 Patient Position Supine Combined With Heat/Cold Cold Pack PT-OP-T Assessment and Plan Start: 11/19/17 09:00 Freq: Status: Active Protocol: Document 02/11/18 12:31 (Rec: 02/11/18 12:47 [email or web address]) Physical Therapy Assessment Progress Towards Goals Progress Comments Pt with set back d/t fall on stairs and difficulty walking with injury to L little toe. Assessment Summary Assessment Gradual reintroduction of exercise and stretching program to tolerance today. Pt with c/o intermittent R knee and distal ITB pain that responded well to manual therapy. Physical Therapy Plan Next Visit Focus/Plan Next Note Type Progress Note Next Visit Plan Assess response to exercise and manual therapy. Progress core and LE strengthening as able.
--- NOTE | 2018-02-11 13:16 | PT.OTN ---
Current Diagnoses Unspecified injury of right lower leg, initial encounter (02/11/18) Physical Therapy Treatment Note PT-OP-A Visit Information Start: 11/19/17 09:00 Freq: Status: Active Protocol: Document 02/11/18 13:11 [facility] (Rec: 02/11/18 13:16 [email or web address]) Out-Patient Physical Therapy Visit Information Visit Information Visit Type Treatment Note Visit Note 07/04 for G codes Visit Start Time 09:00 Visit Stop Time 09:48 Total Visit Minutes 48 Visit Number 14 Number of PEDIATRIC CARE COORDINATOR Visits 1 PT-OP-B Current Condition Start: 11/19/17 09:00 Freq: Status: Active Protocol: Document 11/19/17 09:01 [facility] (Rec: 11/19/17 09:48 [facility] [id number]) Current Condition History of Current Condition Onset Date Mid June Current Complaints med R knee History of Current Condition His doctor recommended PT. About 1.5 years ago he slipped down steps and hurt B knees. After a couple months both were ok. On about July 09, he was on a cruise and slipped on last step and now has burning pain medially. He can push it and rub it to make it go away . Laying on his right side bothers him. It has now gotten to the point where he wants to take care of it. He played football as a kid and did get hit in R leg and it bother him for several months, but was able to cont to play. Reports he ER his RLE when driving and is unsure if it has affect. Since he got a knee brace, it hasn't been as bad (about 3 weeks). Reports some days it is so good he forgets to put on his brace. Pt had stent put in about 1 year ago. Reports he has been doing his cardiac rehab (uses treadmill 40 min, rowing 20 min, UBE 10 min, usually lifts but stopped d/t hand/forearm pain-stopped 6 weeks ago) Prior Treatments and Tests no imaging or chiropractor- helped w/manips & some exercises PT-OP-C Subjective Start: 11/19/17 09:00 Freq: Status: Active Protocol: Document 02/11/18 13:11 [facility] (Rec: 02/11/18 13:16 [facility] [email or web address]) OP-PT Subjective Patient Comments Patient Comments Pt reports having a fall on the stairs outside and injuring little on L foot. Has not been in in 3 weeks and is finally feeling better, ambualtion has improved. R knee feeling pretty good despite fall. PT-OP-F Manual Assessment Start: 11/19/17 09:00 Freq: Status: Active Protocol: Document 11/19/17 09:01 [facility] (Rec: 11/19/17 09:48 [facility] [id number]) Manual Assessments Joint Mobility Assessment Joint Mobility Assessment R: tibia & femur IR with knee bend; L: tibia and femur close to neutral with knee bend PT-OP-G Mobility & Gait Start: 11/19/17 09:00 Freq: Status: Active Protocol: Document 11/19/17 09:01 [facility] (Rec: 11/19/17 09:48 [facility] [id number]) OP Gait Assessment Comments Gait Comments Dec post depression & push off of R side. Foot & tibia in ER and femur IR with stance phase PT-OP-K Range of Motion Start: 11/19/17 09:00 Freq: Status: Active Protocol: Document 11/19/17 09:01 [facility] (Rec: 11/19/17 09:48 [facility] [id number]) Knee Goniometric Range of Motion Knee Measured in Degrees Right Flexion Active (degrees) 113 Extension Active (degrees) 4 PT-OP-L Special Tests Start: 11/19/17 09:00 Freq: Status: Active Protocol: Document 11/19/17 09:01 [facility] (Rec: 11/19/17 09:48 [facility] [id number]) Special Tests Knee Special Tests Varus- 25 Degrees Test Results neg Valgus- 25 Degrees Test Results slight laxity Anthony Test Test Results postive w/ER Posterior Draw Test Results neg Stacie's Test Results neg PT-OP-M Strength Start: 11/19/17 09:00 Freq: Status: Active Protocol: Document 11/19/17 09:01 [facility] (Rec: 11/19/17 09:48 [facility] [id number]) Hip Strength Hip Manual Muscle Testing Right Flexion (L2) 5 Normal Abduction 4- Good- External Rotation 3+ Fair+ Internal Rotation 4 Good Comments pain w/rotation Left Flexion (L2) 5 Normal Abduction 4 Good External Rotation 4+ Good+ Internal Rotation 5 Normal Knee Strength Knee Manual Muscle Testing Right Flexion (S2) 4+ Good+ Extension (L3) 4 Good Left Flexion (S2) 5 Normal Extension (L3) 5 Normal Ankle/Foot Strength Ankle and Foot Manual Muscle Testing Right Dorsiflexion (L4) 5 Normal Plantarflexion (S1) 4+ Good+ Comments seated Left Dorsiflexion (L4) 5 Normal Plantarflexion (S1) 5 Normal PT-OP-Q Treatments Start: 11/19/17 09:00 Freq: Status: Active Protocol: Document 02/11/18 13:11 (Rec: 02/11/18 13:16 [email or web address]) Cardio Equipment Recumbent Elliptical (Biodex) Duration (Minutes) 5 Resistance 5 Therapeutic Exercises Supine Exercises 5 Supine Exercise Name therapist assisted hip IR/ER stretching Side right Comments he reports less pain when therapist assists 4 Supine Exercise Name piriformis stretch Side bilateral Reps/Minutes 3 reps each Comments knee pull to opp shoulder Standing Exercises 7 Standing Exercise Name SLS Side bilateral Comments focus on stabalization 1 Standing Exercise Name Calf Stretch Side bilateral Equipment Used ROSS Manual Therapy Treatment Soft Tissue Mobilization 3 Body Location R ITB/hamstrings Mobilization Type Myofascial Release Strumming Sustained Pressure Trigger Point Release Intensity/Depth Moderate Body Position Prone PT-OP-R Modalities Start: 11/19/17 09:00 Freq: Status: Active Protocol: Document 02/11/18 13:11 (Rec: 02/11/18 13:16 [email or web address]) Electric Stimulation Electric Stimulation Interferential Current (IFC) Body Location R knee Duration (Minutes) 15 Patient Position Supine Combined With Heat/Cold Cold Pack PT-OP-T Assessment and Plan Start: 11/19/17 09:00 Freq: Status: Active Protocol: Document 02/11/18 13:11 (Rec: 02/11/18 13:16 [email or web address]) Physical Therapy Assessment Progress Towards Goals Progress Comments Pt with set back d/t fall on stairs and difficulty walking with injury to L little toe. Assessment Summary Assessment Gradual reintroduction of exercise and stretching program to tolerance today. Pt with c/o intermittent R knee and distal ITB pain that responded well to manual therapy. Physical Therapy Plan Next Visit Focus/Plan Next Note Type Progress Note Next Visit Plan Assess response to exercise and manual therapy. Progress core and LE strengthening as able.
--- NOTE | 2018-02-11 13:47 | PT.OTN ---
Current Diagnoses Unspecified injury of right lower leg, initial encounter (02/11/18) Physical Therapy Treatment Note PT-OP-A Visit Information Start: 11/19/17 09:00 Freq: Status: Active Protocol: Document 02/11/18 13:11 [facility] (Rec: 02/11/18 13:16 [email or web address]) Out-Patient Physical Therapy Visit Information Visit Information Visit Type Treatment Note Visit Note 07/04 for G codes Visit Start Time 09:00 Visit Stop Time 09:48 Total Visit Minutes 48 Visit Number 14 Number of DISPATCHER BUS AND TROLLEY Visits 1 PT-OP-B Current Condition Start: 11/19/17 09:00 Freq: Status: Active Protocol: Document 11/19/17 09:01 [facility] (Rec: 11/19/17 09:48 [facility] [id number]) Current Condition History of Current Condition Onset Date Mid June Current Complaints med R knee History of Current Condition His doctor recommended PT. About 1.5 years ago he slipped down steps and hurt B knees. After a couple months both were ok. On about July 09, he was on a cruise and slipped on last step and now has burning pain medially. He can push it and rub it to make it go away . Laying on his right side bothers him. It has now gotten to the point where he wants to take care of it. He played football as a kid and did get hit in R leg and it bother him for several months, but was able to cont to play. Reports he ER his RLE when driving and is unsure if it has affect. Since he got a knee brace, it hasn't been as bad (about 3 weeks). Reports some days it is so good he forgets to put on his brace. Pt had stent put in about 1 year ago. Reports he has been doing his cardiac rehab (uses treadmill 40 min, rowing 20 min, UBE 10 min, usually lifts but stopped d/t hand/forearm pain-stopped 6 weeks ago) Prior Treatments and Tests no imaging or chiropractor- helped w/manips & some exercises PT-OP-C Subjective Start: 11/19/17 09:00 Freq: Status: Active Protocol: Document 02/11/18 13:11 [facility] (Rec: 02/11/18 13:16 [facility] [email or web address]) OP-PT Subjective Patient Comments Patient Comments Pt reports having a fall on the stairs outside and injuring little on L foot. Has not been in in 3 weeks and is finally feeling better, ambualtion has improved. R knee feeling pretty good despite fall. PT-OP-F Manual Assessment Start: 11/19/17 09:00 Freq: Status: Active Protocol: Document 11/19/17 09:01 [facility] (Rec: 11/19/17 09:48 [facility] [id number]) Manual Assessments Joint Mobility Assessment Joint Mobility Assessment R: tibia & femur IR with knee bend; L: tibia and femur close to neutral with knee bend PT-OP-G Mobility & Gait Start: 11/19/17 09:00 Freq: Status: Active Protocol: Document 11/19/17 09:01 [facility] (Rec: 11/19/17 09:48 [facility] [id number]) OP Gait Assessment Comments Gait Comments Dec post depression & push off of R side. Foot & tibia in ER and femur IR with stance phase PT-OP-K Range of Motion Start: 11/19/17 09:00 Freq: Status: Active Protocol: Document 11/19/17 09:01 [facility] (Rec: 11/19/17 09:48 [facility] [id number]) Knee Goniometric Range of Motion Knee Measured in Degrees Right Flexion Active (degrees) 113 Extension Active (degrees) 4 PT-OP-L Special Tests Start: 11/19/17 09:00 Freq: Status: Active Protocol: Document 11/19/17 09:01 [facility] (Rec: 11/19/17 09:48 [facility] [id number]) Special Tests Knee Special Tests Varus- 25 Degrees Test Results neg Valgus- 25 Degrees Test Results slight laxity Anthony Test Test Results postive w/ER Posterior Draw Test Results neg Stacie's Test Results neg PT-OP-M Strength Start: 11/19/17 09:00 Freq: Status: Active Protocol: Document 11/19/17 09:01 [facility] (Rec: 11/19/17 09:48 [facility] [id number]) Hip Strength Hip Manual Muscle Testing Right Flexion (L2) 5 Normal Abduction 4- Good- External Rotation 3+ Fair+ Internal Rotation 4 Good Comments pain w/rotation Left Flexion (L2) 5 Normal Abduction 4 Good External Rotation 4+ Good+ Internal Rotation 5 Normal Knee Strength Knee Manual Muscle Testing Right Flexion (S2) 4+ Good+ Extension (L3) 4 Good Left Flexion (S2) 5 Normal Extension (L3) 5 Normal Ankle/Foot Strength Ankle and Foot Manual Muscle Testing Right Dorsiflexion (L4) 5 Normal Plantarflexion (S1) 4+ Good+ Comments seated Left Dorsiflexion (L4) 5 Normal Plantarflexion (S1) 5 Normal PT-OP-Q Treatments Start: 11/19/17 09:00 Freq: Status: Active Protocol: Document 02/11/18 13:11 (Rec: 02/11/18 13:16 [email or web address]) Cardio Equipment Recumbent Elliptical (Biodex) Duration (Minutes) 5 Resistance 5 Therapeutic Exercises Supine Exercises 5 Supine Exercise Name therapist assisted hip IR/ER stretching Side right Comments he reports less pain when therapist assists 4 Supine Exercise Name piriformis stretch Side bilateral Reps/Minutes 3 reps each Comments knee pull to opp shoulder Standing Exercises 7 Standing Exercise Name SLS Side bilateral Comments focus on stabalization 1 Standing Exercise Name Calf Stretch Side bilateral Equipment Used ROSS Manual Therapy Treatment Soft Tissue Mobilization 3 Body Location R ITB/hamstrings Mobilization Type Myofascial Release Strumming Sustained Pressure Trigger Point Release Intensity/Depth Moderate Body Position Prone PT-OP-R Modalities Start: 11/19/17 09:00 Freq: Status: Active Protocol: Document 02/11/18 13:11 (Rec: 02/11/18 13:16 [email or web address]) Electric Stimulation Electric Stimulation Interferential Current (IFC) Body Location R knee Duration (Minutes) 15 Patient Position Supine Combined With Heat/Cold Cold Pack PT-OP-T Assessment and Plan Start: 11/19/17 09:00 Freq: Status: Active Protocol: Document 02/11/18 13:11 (Rec: 02/11/18 13:16 [email or web address]) Physical Therapy Assessment Progress Towards Goals Progress Comments Pt with set back d/t fall on stairs and difficulty walking with injury to L little toe. Assessment Summary Assessment Gradual reintroduction of exercise and stretching program to tolerance today. Pt with c/o intermittent R knee and distal ITB pain that responded well to manual therapy. Physical Therapy Plan Next Visit Focus/Plan Next Note Type Progress Note Next Visit Plan Assess response to exercise and manual therapy. Progress core and LE stregnthening as able.
--- NOTE | 2018-02-11 13:55 | PT.OPPN ---
Current Diagnoses Unspecified injury of right lower leg, initial encounter (02/11/18) Physical Therapy Progress Note PT-OP-A Visit Information Start: 11/19/17 09:00 Freq: Status: Active Protocol: Document 02/11/18 13:11 [facility] (Rec: 02/11/18 13:16 [facility] [id number]) Out-Patient Physical Therapy Visit Information Visit Information Visit Type Treatment Note Visit Note 07/04 for G codes Visit Start Time 09:00 Visit Stop Time 09:48 Total Visit Minutes 48 Visit Number 14 Number of DEVELOPMENTAL SERVICES WORKER Visits 1 PT-OP-B Current Condition Start: 11/19/17 09:00 Freq: Status: Active Protocol: Document 11/19/17 09:01 [facility] (Rec: 11/19/17 09:48 [facility] [id number]) Current Condition History of Current Condition Onset Date Mid June Current Complaints med R knee History of Current Condition His doctor recommended PT. About 1.5 years ago he slipped down steps and hurt B knees. After a couple months both were ok. On about July 09, he was on a cruise and slipped on last step and now has burning pain medially. He can push it and rub it to make it go away . Laying on his right side bothers him. It has now gotten to the point where he wants to take care of it. He played football as a kid and did get hit in R leg and it bother him for several months, but was able to cont to play. Reports he ER his RLE when driving and is unsure if it has affect. Since he got a knee brace, it hasn't been as bad (about 3 weeks). Reports some days it is so good he forgets to put on his brace. Pt had stent put in about 1 year ago. Reports he has been doing his cardiac rehab (uses treadmill 40 min, rowing 20 min, UBE 10 min, usually lifts but stopped d/t hand/forearm pain-stopped 6 weeks ago) Prior Treatments and Tests no imaging or chiropractor- helped w/manips & some exercises PT-OP-C Subjective Start: 11/19/17 09:00 Freq: Status: Active Protocol: Document 02/11/18 13:11 [facility] (Rec: 02/11/18 13:16 [facility] [id number]) OP-PT Subjective Patient Comments Patient Comments Pt reports having a fall on the stairs outside and injuring little on L foot. Has not been in in 3 weeks and is finally feeling better, ambualtion has improved. R knee feeling pretty good despite fall. PT-OP-F Manual Assessment Start: 11/19/17 09:00 Freq: Status: Active Protocol: Document 11/19/17 09:01 [facility] (Rec: 11/19/17 09:48 [facility] [id number]) Manual Assessments Joint Mobility Assessment Joint Mobility Assessment R: tibia & femur IR with knee bend; L: tibia and femur close to neutral with knee bend PT-OP-G Mobility & Gait Start: 11/19/17 09:00 Freq: Status: Active Protocol: Document 11/19/17 09:01 [facility] (Rec: 11/19/17 09:48 [facility] [id number]) OP Gait Assessment Comments Gait Comments Dec post depression & push off of R side. Foot & tibia in ER and femur IR with stance phase PT-OP-K Range of Motion Start: 11/19/17 09:00 Freq: Status: Active Protocol: Document 11/19/17 09:01 [facility] (Rec: 11/19/17 09:48 [facility] [id number]) Knee Goniometric Range of Motion Knee Measured in Degrees Right Flexion Active (degrees) 113 Extension Active (degrees) 4 PT-OP-L Special Tests Start: 11/19/17 09:00 Freq: Status: Active Protocol: Document 11/19/17 09:01 [facility] (Rec: 11/19/17 09:48 [facility] [id number]) Special Tests Knee Special Tests Varus- 25 Degrees Test Results neg Valgus- 25 Degrees Test Results slight laxity Anthony Test Test Results postive w/ER Posterior Draw Test Results neg Stacie's Test Results neg PT-OP-M Strength Start: 11/19/17 09:00 Freq: Status: Active Protocol: Document 11/19/17 09:01 [facility] (Rec: 11/19/17 09:48 [facility] [id number]) Hip Strength Hip Manual Muscle Testing Right Flexion (L2) 5 Normal Abduction 4- Good- External Rotation 3+ Fair+ Internal Rotation 4 Good Comments pain w/rotation Left Flexion (L2) 5 Normal Abduction 4 Good External Rotation 4+ Good+ Internal Rotation 5 Normal Knee Strength Knee Manual Muscle Testing Right Flexion (S2) 4+ Good+ Extension (L3) 4 Good Left Flexion (S2) 5 Normal Extension (L3) 5 Normal Ankle/Foot Strength Ankle and Foot Manual Muscle Testing Right Dorsiflexion (L4) 5 Normal Plantarflexion (S1) 4+ Good+ Comments seated Left Dorsiflexion (L4) 5 Normal Plantarflexion (S1) 5 Normal PT-OP-T Assessment and Plan Start: 11/19/17 09:00 Freq: Status: Active Protocol: Document 02/11/18 13:50 [facility] (Rec: 02/11/18 13:55 [facility] [id number]) Physical Therapy Assessment Impairments Impairments Balance Edema Gait Pain Posture ROM Soft Tissue Mobility Strength Goals Two Impairment strength Short Term Goal (STG) indep with HEP STG Duration 12/19/17 - Achieved, progressing as needed Snf Goal (LTG) 5/5 BLE to improve stability of R knee and allow pt to return to normal activities with dec pain/ instability. LTG Duration 03/21/18-improving One Impairment pain Short Term Goal (STG) 3/10 at worst for pain STG Duration 12/19/17 - Achieved Theatrical Variety Agent Goal (LTG) 1/10 at worst for pain w/ typical activities LTG Duration 03/21/18-improving occasional pain still Assessment Summary Assessment Pt was making excellent progress until he stubbed L pinky toe d/t dog getting in his way. Pt was instructed to take a break from therapy until that felt better in order to cont to progress WB activities. Soon after pt fell going down the stairs and hurt his toe more and went to MD who did not give him restrictions. Pt is still getting intermittent knee pain to be continued to be progressed after this set back . Physical Therapy Plan Frequency and Duration Frequency of Treatment 1-2x/Week Duration of Treatment 2 months Plan of Care Start Date 02/11/18 Plan of Care End Date 04/14/18 Therapeutic Interventions Therapeutic Interventions Aquatic Therapy Balance Training Gait Training Home Exercise Program Joint Mobilizations Manual Therapy Neuromuscular Re-education Soft Tissue Mobilization Taping Therapeutic Activities Therapeutic Exercises Modalities Cold Pack/Ice Massage Electric Stimulation Hot Packs Infrared Therapy Iontophoresis Ultrasound Next Visit Focus/Plan Next Note Type Treatment Note Next Visit Plan Assess response to exercise and manual therapy. Progress core and LE stregnthening as able.
--- NOTE | 2018-02-11 13:55 | PT.OPPOC ---
Current Diagnoses Unspecified injury of right lower leg, initial encounter (02/11/18) Provider Visit Care Team Role Provider Type Medina Castaneda DO Family Provider Physician Primary Care Provider Specialty: Family Practice Address: [address] [place] [address], [id number] Email: [email or web address] Bronson Decker DO Attending Provider Non-Staff Specialty: Dermatology Address: [address] [place] [address], [id number] Email: Plan Of Care PT-OP-T Assessment and Plan Start: 11/19/17 09:00 Freq: Status: Active Protocol: Document 02/11/18 13:50 [facility] (Rec: 02/11/18 13:55 [facility] [id number]) Physical Therapy Assessment Impairments Impairments Balance Edema Gait Pain Posture ROM Soft Tissue Mobility Strength Goals Two Impairment strength Short Term Goal (STG) indep with HEP STG Duration 12/19/17 - Achieved, progressing as needed Fci Goal (LTG) 5/5 BLE to improve stability of R knee and allow pt to return to normal activities with dec pain/ instability. LTG Duration 03/21/18-improving One Impairment pain Short Term Goal (STG) 3/10 at worst for pain STG Duration 12/19/17 - Achieved Mud Car Worker Goal (LTG) 1/10 at worst for pain w/ typical activities LTG Duration 03/21/18-improving occasional pain still Assessment Summary Assessment Pt was making excellent progress until he stubbed L pinky toe d/t dog getting in his way. Pt was instructed to take a break from therapy until that felt better in order to cont to progress WB activities. Soon after pt fell going down the stairs and hurt his toe more and went to MD who did not give him restrictions. Pt is still getting intermittent knee pain to be continued to be progressed after this set back . Physical Therapy Plan Frequency and Duration Frequency of Treatment 1-2x/Week Duration of Treatment 2 months Plan of Care Start Date 02/11/18 Plan of Care End Date 04/14/18 Therapeutic Interventions Therapeutic Interventions Aquatic Therapy Balance Training Gait Training Home Exercise Program Joint Mobilizations Manual Therapy Neuromuscular Re-education Soft Tissue Mobilization Taping Therapeutic Activities Therapeutic Exercises Modalities Cold Pack/Ice Massage Electric Stimulation Hot Packs Infrared Therapy Iontophoresis Ultrasound Next Visit Focus/Plan Next Note Type Treatment Note Next Visit Plan Assess response to exercise and manual therapy. Progress core and LE jaycee as able. Plan of Care Dates Plan of Care Start Date 02/11/18 Plan of Care End Date 04/14/18 Please Sign and Return: I have reviewed this Plan of Care and certify that the skilled therapy services above are required to meet the patient?s needs. Physician Signature Date Printed Name and Credentials Clinical Instructor Signature Printed Name and Credentials
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
== END 2018-02-15 11:55 ==
LOC: PHYS 09:00
PROVIDERS: Family Provider Family Medicine; PCP Family Medicine; Visit Provider Family Medicine
DX: S89.91XA Unspecified injury of right lower leg, initial encounter (principal)
CPT/HCPCS: 97014; 97110; 97112; 97140; 97161; 97535; G0283

== ENCOUNTER → 2018-08-30 08:24 | Outpatient (CLI) | payer MEDICARE, OTHER, SELFPAY ==
[2018-08-30 10:07] LABS: BUN Creatinine Ratio 16.3 (6-22); Blood Urea Nitrogen 13 mg/dL (9-20); Calcium 8.6 mg/dL (8.4-10.2); Carbon Dioxide 29 mmol/L (22-32); Chloride 106 mmol/L (98-107); Cholesterol 120 mg/dL (140-199); Estimated Glomerular Filt Rate > 60.0 mL/min (>60); Glucose 116 mg/dL (80-110); HDL Cholesterol 44 mg/dL (40-60); HEMOLYSIS < 15 (0-50); LDL Cholesterol Calculated 43 mg/dL (<100); Potassium 3.8 mmol/L (3.4-5.1); Sodium 142 mmol/L (137-145); Triglycerides 166 mg/dL (35-150)
== END ==
PROVIDERS: Family Provider Family Medicine; PCP Family Medicine; Visit Provider Internal Medicine Interventional Cardiology
DX: I25.10 Atherosclerotic heart disease of native coronary artery without angina pectoris (principal)
CPT/HCPCS: 36415; 80048; 80061

== ENCOUNTER → 2019-04-09 07:54 | Outpatient (CLI) | payer MEDICARE, OTHER, SELFPAY ==
[2019-04-09 08:38] LABS: Hemoglobin A1C% w Est Avg Glu 5.7 % (4.0-6.0)
[2019-04-09 08:42] LABS: BUN Creatinine Ratio 17.5 (6-22); Blood Urea Nitrogen 14 mg/dL (9-20); Calcium 8.8 mg/dL (8.4-10.2); Carbon Dioxide 29 mmol/L (22-32); Chloride 105 mmol/L (98-107); Estimated Glomerular Filt Rate > 60.0 mL/min (>60); Glucose 119 mg/dL (80-110); HEMOLYSIS < 15 (0-50); Potassium 4.2 mmol/L (3.4-5.1); Sodium 143 mmol/L (137-145)
== END ==
PROVIDERS: Family Provider Family Medicine; PCP Family Medicine; Referring Provider Family Medicine; Visit Provider Family Medicine
DX: R73.9 Hyperglycemia, unspecified (principal)
CPT/HCPCS: 36415; 80048; 83036

== ENCOUNTER → 2019-08-25 09:05 | Outpatient (CLI) | payer MEDICARE, OTHER, SELFPAY ==
[2019-08-25 10:32] LABS: BUN Creatinine Ratio 16.5 (6-22); Blood Urea Nitrogen 13 mg/dL (9-20); Calcium 8.9 mg/dL (8.4-10.2); Carbon Dioxide 28 mmol/L (22-32); Chloride 104 mmol/L (98-107); Cholesterol 120 mg/dL (140-199); Estimated Glomerular Filt Rate > 60.0 mL/min (>60); Glucose 110 mg/dL (80-110); HDL Cholesterol 42 mg/dL (40-60); HEMOLYSIS < 15 (0-50); LDL Cholesterol Calculated 50 mg/dL (<100); Potassium 4.1 mmol/L (3.4-5.1); Sodium 138 mmol/L (137-145); Triglycerides 142 mg/dL (35-150)
== END ==
PROVIDERS: Family Provider Family Medicine; PCP Family Medicine; Referring Provider Internal Medicine Interventional Cardiology; Visit Provider Internal Medicine Interventional Cardiology
DX: I25.10 Atherosclerotic heart disease of native coronary artery without angina pectoris (principal)
CPT/HCPCS: 36415; 80048; 80061

== ENCOUNTER → 2019-08-25 09:13 | Outpatient (CLI) | payer MEDICARE, OTHER, SELFPAY ==
--- NOTE | 2019-08-25 09:16 | DI.RAD.S_ITS ---
PROCEDURE: XR KNEE LT 3V INDICATIONS: left knee pain TECHNIQUE: 3 views of the knee were acquired. COMPARISON: None. FINDINGS: Bones: No fractures or dislocations. Moderate tricompartmental degenerative changes of the left knee with marginal osteophyte formation and narrowing of the medial femorotibial compartment. No suspicious bony lesions. Soft tissues: No joint effusion. No suspicious soft tissue calcifications. IMPRESSION: Tricompartmental osteoarthrosis of the left knee. Dictated by: González Corado M.D. on 08/25/2019 at 10:57 Approved by: González Corado M.D. on 08/25/2019 at 10:58
--- NOTE | 2019-08-25 09:16 | DI.RAD.S_ITS ---
PROCEDURE: XR KNEE RT 3V INDICATIONS: right knee pain TECHNIQUE: 3 views of the knee were acquired. COMPARISON: None. FINDINGS: Bones: No acute fractures or dislocations. Moderate tricompartmental degenerative changes with prominent marginal osteophyte formation. There is moderate medial femorotibial compartment joint space loss and prominent patellofemoral osteophyte formation. No suspicious bony lesions. Soft tissues: Small joint effusion. No suspicious soft tissue calcifications. 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 Dictated by: González Corado M.D. on 08/25/2019 at 10:58 Approved by: González Corado M.D. on 08/25/2019 at 10:59
== END ==
PROVIDERS: Family Provider Family Medicine; PCP Family Medicine; Referring Provider Family Medicine; Visit Provider Family Medicine
DX: M25.561 Pain in right knee (principal); M25.562 Pain in left knee; M17.0 Bilateral primary osteoarthritis of knee; M25.461 Effusion, right knee; R29.898 Other symptoms and signs involving the musculoskeletal system
CPT/HCPCS: 73562

== ENCOUNTER 2019-09-06 16:33 | Emergency (ER) | payer MEDICARE, OTHER, SELFPAY ==
[2019-09-06 16:46] VITALS: BP 147/87; PULSE 91; RESP 18; TEMP 37.1; O2SAT 95; BMI 31.9
--- NOTE | 2019-09-06 17:04 | DI.RAD.S_ITS ---
PROCEDURE: XR FOREARM RT 2V INDICATIONS: L distal forearm trauma TECHNIQUE: 2 views of the forearm were acquired. COMPARISON: None. FINDINGS: Bones: No fractures or dislocations. No suspicious bony lesions. Soft tissues: No suspicious soft tissue calcifications or masses. IMPRESSION: No visualized acute fracture or dislocation. However, if clinical concern and/or pain persist, short interval imaging followup in 7-10 days is recommended, as occult injury cannot be definitively excluded. Dictated by: Sydni Toussaint M.D. on 09/06/2019 at 17:50 Approved by: Sydni Toussaint M.D. on 09/06/2019 at 17:50
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
[2019-09-06 17:55] VITALS: BP 133/70; PULSE 73; O2SAT 96
[2019-09-06] MEDS: TET,DIPH,PERTUSS(ACELL),VAC/PF 0.5 ML SYRINGE IM (18:02)
[2019-09-06] MEDS: BACITRACIN OINT 0.9 GM PCKT 1 APPLIC TOP (18:03)
[2019-09-06] MEDS: BACITRACIN OINT 0.9 GM PCKT 3 APPLIC TOP (18:04)
[2019-09-06 18:11] VITALS: BP 136/72; PULSE 77; RESP 16; O2SAT 97
== END 2019-09-06 18:21 | disposition home or self-care (01) ==
PROVIDERS: Emergency Provider Nurse Practitioner; Family Provider Family Medicine; PCP Family Medicine
DX: S40.812A Abrasion of left upper arm, initial encounter (principal); Z79.82 Long term (current) use of aspirin; V19.9XXA Pedal cyclist (driver) (passenger) injured in unspecified traffic accident, initial encounter; Z23 Encounter for immunization
CPT/HCPCS: 73090; 90471; 99283; 99284; 90715

== ENCOUNTER → 2019-09-14 09:06 | Outpatient (CLI) | payer MEDICARE, OTHER, SELFPAY ==
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
--- NOTE | 2019-09-14 09:08 | DI.RAD.S_ITS ---
PROCEDURE: XR FOREARM RT 2V INDICATIONS: L forearm pain TECHNIQUE: 2 views of the forearm were acquired. COMPARISON: [facility], CR, XR WRIST LT MIN 3V, 09/14/2019, 9:02. [facility], CR, XR FOREARM LT 2V, 09/06/2019, 17:31. FINDINGS: Bones: No fractures or dislocations. No suspicious bony lesions. Soft tissues: Abnormal soft tissue swelling at the dorsal aspect of the distal forearm. No suspicious soft tissue calcifications or masses. IMPRESSION: No acute osseous abnormality. Abnormal soft tissue swelling at the dorsal aspect of the distal forearm may represent a hematoma. Dictated by: Ronnie Mercer M.D. on 09/14/2019 at 9:36 Approved by: Ronnie Mercer M.D. on 09/14/2019 at 9:38
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
== END ==
PROVIDERS: Family Provider Family Medicine; PCP Family Medicine; Referring Provider Nurse Practitioner; Visit Provider Nurse Practitioner
DX: M79.642 Pain in left hand (principal); M79.602 Pain in left arm; M25.532 Pain in left wrist; R22.32 Localized swelling, mass and lump, left upper limb
CPT/HCPCS: 73090; 73110; 73130

== ENCOUNTER → 2019-09-19 09:21 | Outpatient (CLI) | payer MEDICARE, OTHER, SELFPAY | PROVIDERS: Family Provider Family Medicine; PCP Family Medicine; Visit Provider Physician Assistant | DX: M79.603 Pain in arm, unspecified (principal) | CPT/HCPCS: 87070; 87075; 87205 ==

== ENCOUNTER → 2019-09-19 09:32 | Outpatient (CLI) | payer MEDICARE, OTHER, SELFPAY ==
--- NOTE | 2019-09-19 09:36 | DI.US.S_ITS ---
PROCEDURE: US EXTREMITY NONVASC UPPER LT INDICATIONS: HEMATOMA VS ABSCESS TECHNIQUE: Real-time scanning was performed of the left distal forearm, with image documentation. COMPARISON: None. FINDINGS: There is a complex hypoechoic focus within the distal soft tissues of the forearm, measuring 98 mm x 41 mm x 18 mm, with an internal cystic component measuring 20 mm. IMPRESSION: Distal forearm hematoma versus abscess. Dictated by: Michael Moody M.D. on 09/19/2019 at 10:11 Approved by: Michael Moody M.D. on 09/19/2019 at 10:13
== END ==
PROVIDERS: Family Provider Family Medicine; PCP Family Medicine; Referring Provider Physician Assistant; Visit Provider Physician Assistant
DX: S50.812A Abrasion of left forearm, initial encounter (principal); L03.114 Cellulitis of left upper limb; M79.603 Pain in arm, unspecified; V18.0XXA Pedal cycle driver injured in noncollision transport accident in nontraffic accident, initial encounter
CPT/HCPCS: 76882; 87070; 87077; 87205

== ENCOUNTER → 2019-10-29 14:34 | Outpatient (CLI) | payer MEDICARE, OTHER, SELFPAY ==
[2019-10-29 16:20] LABS: Prostate Specific Antigen Scrn 1.85 ng/mL (0.1-4.0)
== END ==
PROVIDERS: Family Provider Family Medicine; PCP Family Medicine; Referring Provider Family Medicine; Visit Provider Family Medicine
DX: R39.9 Unspecified symptoms and signs involving the genitourinary system (principal); Z12.5 Encounter for screening for malignant neoplasm of prostate
CPT/HCPCS: 36415; G0103

== ENCOUNTER → 2019-10-30 11:41 | Outpatient (CLI) | payer MEDICARE, OTHER, SELFPAY ==
[2019-11-04 11:55] LABS: Fecal Immunochemical Test Negative (Negative)
== END ==
PROVIDERS: Family Provider Family Medicine; PCP Family Medicine; Referring Provider Family Medicine; Visit Provider Family Medicine
DX: Z12.11 Encounter for screening for malignant neoplasm of colon (principal)
CPT/HCPCS: 82274

== ENCOUNTER → 2019-11-19 14:34 | Outpatient (CLI) | payer MEDICARE, OTHER, SELFPAY ==
[2019-11-20 08:49] LABS: COVID19 Sendout Not Detected (Not Detect)
== END ==
PROVIDERS: Family Provider Family Medicine; PCP Family Medicine; Visit Provider Physician Assistant
DX: Z11.59 Encounter for screening for other viral diseases (principal)
CPT/HCPCS: 87635

== ENCOUNTER → 2020-06-24 08:25 | Outpatient (CLI) | payer MEDICARE, OTHER, SELFPAY ==
[2020-06-24 10:39] LABS: BUN Creatinine Ratio 18.8 (6-22); Blood Urea Nitrogen 15 mg/dL (9-20); Calcium 8.7 mg/dL (8.4-10.2); Carbon Dioxide 31 mmol/L (22-32); Chloride 103 mmol/L (98-107); Cholesterol 141 mg/dL (140-199); Estimated Glomerular Filt Rate > 60.0 mL/min (>60); Glucose 102 mg/dL (80-110); HDL Cholesterol 50 mg/dL (40-60); HEMOLYSIS < 15 (0-50); LDL Cholesterol Calculated 55 mg/dL (<100); Sodium 139 mmol/L (137-145); Triglycerides 178 mg/dL (35-150)
== END ==
PROVIDERS: Family Provider Family Medicine; PCP Family Medicine; Referring Provider Internal Medicine Interventional Cardiology; Visit Provider Internal Medicine Interventional Cardiology
DX: E78.5 Hyperlipidemia, unspecified (principal); I10 Essential (primary) hypertension
CPT/HCPCS: 36415; 80048; 80061

== ENCOUNTER → 2021-01-24 07:02 | Outpatient (CLI) | payer MEDICARE, OTHER, SELFPAY ==
[2021-01-24 09:08] LABS: Follicle Stimulating Hormone 14.5 mIU/mL; Luteinizing Hormone 4.44 mIU/mL
[2021-01-24 09:14] LABS: Free T4, Direct Thyroxine 0.74 ng/dL (0.78-2.19)
[2021-01-24 09:16] LABS: Prolactin 12.1 ng/mL (3.7-17.9)
[2021-01-24 09:28] LABS: Thyroid Stimulating Hormone 1.88 uIU/mL (0.47-4.68)
[2021-01-24 09:32] LABS: Testosterone 365 ng/dL (71.8-623)
== END ==
PROVIDERS: Family Provider Family Medicine; PCP Family Medicine; Referring Provider Family Medicine; Visit Provider Family Medicine
DX: N52.9 Male erectile dysfunction, unspecified (principal); R07.9 Chest pain, unspecified
CPT/HCPCS: 36415; 83001; 83002; 84146; 84403; 84439; 84443

== ENCOUNTER → 2021-11-27 07:01 | Outpatient (CLI) | payer MEDICARE, OTHER, SELFPAY ==
[2021-11-27 08:06] LABS: BUN Creatinine Ratio 14.1 (6-22); Blood Urea Nitrogen 12 mg/dL (9-20); Calcium 8.3 mg/dL (8.4-10.2); Carbon Dioxide 29 mmol/L (22-32); Chloride 107 mmol/L (98-107); Estimated Glomerular Filt Rate > 60 mL/min (>60); Glucose 119 mg/dL (80-110); HEMOLYSIS 16 (0-50); Potassium 4.1 mmol/L (3.4-5.1); Sodium 142 mmol/L (137-145)
== END ==
PROVIDERS: Family Provider Family Medicine; PCP Family Medicine; Referring Provider Internal Medicine Interventional Cardiology; Visit Provider Internal Medicine Interventional Cardiology
DX: I25.10 Atherosclerotic heart disease of native coronary artery without angina pectoris (principal)
CPT/HCPCS: 36415; 80048

== ENCOUNTER → 2022-01-17 07:00 | Outpatient (CLI) | payer MEDICARE, OTHER, SELFPAY ==
[2022-01-17 07:59] LABS: Appearance Urine UA CLEAR; Bilirubin Urine UA NEGATIVE (NEGATIVE); Color Urine UA YELLOW; Glucose Urine UA TRACE g/dL (Negative); Ketones Urine UA NEGATIVE (NEGATIVE); Leukocyte Esterase Urine UA TRACE (NEGATIVE); Nitrite Urine UA NEGATIVE (Negative); Occult Blood Urine UA TRACE-LYSED (Negative); Protein Urine UA TRACE (Negative); pH Urine UA 6.5 (4.5-8.0)
[2022-01-17 08:17] LABS: Alanine Aminotransferase 26 IU/L (<50); Albumin 4.2 g/dL (3.5-5.0); Albumin Globulin Ratio 1.6 (1.0-2.8); Alkaline Phosphatase 69 U/L (38-126); Aspartate Aminotransferase 21 IU/L (17-59); BUN Creatinine Ratio 14.3 (6-22); Bilirubin Total 0.7 mg/dL (0.2-1.3); Blood Urea Nitrogen 12 mg/dL (9-20); Calcium 8.4 mg/dL (8.4-10.2); Carbon Dioxide 31 mmol/L (22-32); Chloride 103 mmol/L (98-107); Cholesterol 121 mg/dL (140-199); Estimated Glomerular Filt Rate > 60 mL/min (>60); Globulin 2.7 g/dL (1.7-4.1); Glucose 111 mg/dL (80-110); HDL Cholesterol 47 mg/dL (40-60); HEMOLYSIS < 15 (0-50); LDL Cholesterol Calculated 51 mg/dL (<100); Potassium 4.1 mmol/L (3.4-5.1); Sodium 142 mmol/L (137-145); Total Protein 6.9 g/dL (6.3-8.2); Triglycerides 117 mg/dL (35-150)
[2022-01-17 08:36] LABS: Bacteria Urine Few (2-10); Mucus Urine 1+ (Negative); RBC Urine 1-5/HPF (0-5/HPF); WBC Urine 0-1/HPF (0-5/HPF)
[2022-01-17 08:37] LABS: Culture Indicated Urine Specimen Cultured; Sperm Urine OCC
[2022-01-18 08:21] LABS: PSA Free % 27.6 % (.); PSA, Total 2.1 ng/mL (0.0-4.0)
== END ==
PROVIDERS: Family Provider Family Medicine; PCP Family Medicine; Referring Provider Family Medicine; Visit Provider Family Medicine
DX: I10 Essential (primary) hypertension (principal); I25.10 Atherosclerotic heart disease of native coronary artery without angina pectoris; R34 Anuria and oliguria
CPT/HCPCS: 36415; 80053; 80061; 81001; 84153; 84154; 87086

== ENCOUNTER → 2022-02-02 11:45 | Outpatient (CLI) | payer MEDICARE, OTHER, SELFPAY | PROVIDERS: Family Provider Family Medicine; PCP Family Medicine; Referring Provider Family Medicine; Visit Provider Family Medicine | DX: R73.01 Impaired fasting glucose (principal) | CPT/HCPCS: 36415; 83036 ==

== ENCOUNTER → 2022-05-21 07:18 | Outpatient (CLI) | payer OTHER, SELFPAY ==
[2022-05-21 08:44] LABS: Creatinine Urine Random 224.4 mg/dL
[2022-05-21 08:48] LABS: Microalbumi Creatinin Ratio Ur 7.5 ug/mg CR (<30); Microalbumin Urine Random 1.7 mg/dL (0-1.6)
[2022-05-21 10:18] LABS: Alanine Aminotransferase 27 IU/L (<50); Albumin 3.7 g/dL (3.5-5.0); Albumin Globulin Ratio 1.4 (1.0-2.8); Alkaline Phosphatase 71 U/L (38-126); Aspartate Aminotransferase 23 IU/L (17-59); BUN Creatinine Ratio 17.2 (6-22); Bilirubin Total 1.2 mg/dL (0.2-1.3); Blood Urea Nitrogen 15 mg/dL (9-20); Calcium 8.3 mg/dL (8.4-10.2); Carbon Dioxide 33 mmol/L (22-32); Chloride 102 mmol/L (98-107); Cholesterol 120 mg/dL (140-199); Estimated Glomerular Filt Rate > 60 mL/min (>60); Globulin 2.6 g/dL (1.7-4.1); Glucose 113 mg/dL (80-110); HDL Cholesterol 45 mg/dL (40-60); HEMOLYSIS < 15 (0-50); LDL Cholesterol Calculated 36 mg/dL (<100); Potassium 3.6 mmol/L (3.4-5.1); Sodium 140 mmol/L (137-145); Total Protein 6.3 g/dL (6.3-8.2); Triglycerides 194 mg/dL (35-150)
[2022-05-22 05:27] LABS: Labcorp Hemoglobin (Hb) A1c 5.8 % (4.8-5.6)
== END ==
PROVIDERS: Family Provider Family Medicine; PCP Family Medicine; Referring Provider Family Medicine; Visit Provider Family Medicine
DX: I10 Essential (primary) hypertension; R73.03 Prediabetes; I25.10 Atherosclerotic heart disease of native coronary artery without angina pectoris
CPT/HCPCS: 36415; 80053; 80061; 82043; 82570; 83036

== ENCOUNTER → 2022-07-06 09:02 | Outpatient (CLI) | payer OTHER, SELFPAY ==
--- NOTE | 2022-07-06 | DI.RAD.S_ITS ---
PROCEDURE: XR FOOT LT MIN 3V INDICATIONS: Pain in left foot TECHNIQUE: 3 views of the foot were acquired. COMPARISON: None. FINDINGS: Bones: No fractures or dislocations. Osteoarthritic changes throughout left foot are seen. Well-defined plantar calcaneal enthesophyte is noted. No suspicious bony lesions. Soft tissues: No tibiotalar joint effusion. Achilles tendon appears normal. IMPRESSION: Osteoarthritic changes throughout left foot. No fracture or dislocation. No gross soft tissue abnormalities. Calcaneal enthesophyte. Dictated by: Robby Amezcua M.D. on 07/06/2022 at 10:55 Approved by: Robby Amezcua M.D. on 07/06/2022 at 10:57
== END ==
PROVIDERS: Family Provider Family Medicine; PCP Nurse Practitioner Family; Referring Provider Nurse Practitioner Family; Visit Provider Nurse Practitioner Family
DX: M77.32 Calcaneal spur, left foot (principal); M79.672 Pain in left foot
CPT/HCPCS: 73630

== ENCOUNTER → 2022-08-03 15:39 | Outpatient (CLI) | payer OTHER, SELFPAY ==
--- NOTE | 2022-08-03 15:40 | DI.MRI.S_ITS ---
PROCEDURE: MRFOOT LT WO CON INDICATIONS: LEFT FOOT STRESS FX TECHNIQUE: Noncontrast sagittal T1 spin echo and T2 fast spin echo with fat saturation, long-axis T1 spin echo and T2 fast spin echo with fat saturation, short-axis T1 spin echo and T2 fast spin echo with fat saturation through the forefoot. COMPARISON: [facility] [place], CR, XR FOOT 3 VIEWS WEIGHT BEARING LEFT, 07/19/2022, 11:15. FINDINGS: Image quality: Excellent. Bones and joints: Osteoarthritic changes are noted throughout midfoot and forefoot joints. Marrow edema is noted involving mid to distal shaft of 3rd metatarsal bone. Significant marrow edema involving 4th metatarsal head and neck and 4th metatarsal base are seen. Subtle cortical irregularity and cortical disruption involving 4th metatarsal neck is seen. Linear hypointense signal and subcortical cystic changes are noted involving 4th and 3rd metatarsal base. No definite cortical disruption is noted in distal 3rd metatarsal shaft and neck. No other area of abnormal marrow signal is seen. Soft tissues: There is soft tissue edema surrounding 3rd and 4th metatarsal shaft. Edema involving plantar foot muscles along plantar aspect of 3rd and 4th metatarsal shafts are also seen. Lisfranc ligament and joint is intact. Extensor and flexor tendons show no gross abnormalities. No gross plantar plate tear is seen. IMPRESSION: 1. Finding is concerning for acute to subacute stress fracture involving 4th metatarsal head and neck. There is suggestion of contusion versus subtle incomplete stress fracture involving distal shaft and neck of 3rd metatarsal bone. 2. Subacute appearing stress fracture versus abnormal stress reaction involving 3rd and 4th metatarsal bases. 3. Soft tissue edema and swelling adjacent to 3rd and 4th metatarsal shafts. Suggestion of mild myositis involving plantar foot muscles at the level of 3rd and 4th metatarsal shafts. 4. Tendons and ligaments of midfoot and forefoot are grossly intact. Dictated by: Robby Amezcua M.D. on 08/03/2022 at 16:40 Approved by: Robby Amezcua M.D. on 08/03/2022 at 16:57
== END ==
PROVIDERS: PCP Nurse Practitioner Family; Referring Provider Orthopaedic Surgery Foot and Ankle Surgery; Visit Provider Orthopaedic Surgery Foot and Ankle Surgery
DX: M84.375A Stress fracture, left foot, initial encounter for fracture (principal); M25.475 Effusion, left foot
CPT/HCPCS: 73718

== ENCOUNTER → 2023-07-04 12:27 | Outpatient (CLI) | payer OTHER, SELFPAY ==
--- NOTE | 2023-07-04 12:30 | DI.RAD.S_ITS ---
PROCEDURE: XR CHEST 2V INDICATIONS: CHRONIC COUGH TECHNIQUE: 2 views of the chest were acquired. COMPARISON: [facility], , CHEST 1 VIEW, 04/19/2017, 16:42. FINDINGS: Surgical changes and devices: None. Lungs and pleura: Lungs are clear. No pleural effusions or pneumothorax. Mediastinum: Mediastinal contours are normal. Heart size is normal. Bones and chest wall: No suspicious bony abnormalities. Soft tissues appear unremarkable. IMPRESSION: No acute cardiopulmonary abnormality. Dictated by: Ronnie Mercer M.D. on 07/04/2023 at 15:17 Approved by: Ronnie Mercer M.D. on 07/04/2023 at 15:18
== END ==
PROVIDERS: PCP Nurse Practitioner Family; Visit Provider Registered Nurse
DX: R05.3 Chronic cough (principal)
CPT/HCPCS: 71046

== ENCOUNTER → 2023-08-05 06:43 | Outpatient (CLI) | payer OTHER, SELFPAY ==
--- NOTE | 2023-08-05 06:46 | DI.ECHO.S_ITS ---
[facility]---------+ [facility] : : [address] : : [place] : : [id number] : : Phone: [phone] Echocardiogram Report + + :Name: TALIB ABRAHAM JR Study Date: 08/05/2023 Height: 68 in : :[facility] ReadingLocation: Weight: 210 lb : : Gender: Male BSA: 2.1 m2 : :: 1945 Age: 77 yrs BP: 160/100 mmHg: :Reason For Study: CORONARY ARTERY DISEASE : :Ordering Physician: LISSETT, : :SALINAS Performed By: Tabitha Falcon : :Referring: ALLY GALEANA : + + Interpretation Summary Normal left ventricle size with ejection fraction 35-40%. There is moderate global hypokinesis of the left ventricle. Diastolic parameters suggest a pseudonormalization pattern, consistent with probable elevated filling pressures. Mild mitral regurgitation. The ascending aorta is moderately enlarged. Comparison is made with the echocardiogram of 09/01/2019, LV function has worsen. Procedure: A two-dimensional transthoracic echocardiogram with color flow and Doppler was performed. The study quality was technically adequate. Comparison is made with the echocardiogram of 09/01/2019. The patient had occasional PVCs during the exam. The heart rate ranged between 68-87 bpm during the study. Left Ventricle: The left ventricle is normal in size and wall thickness. The ejection fraction is estimated to be 35-40%. There is moderate global hypokinesis of the left ventricle. Diastolic parameters suggest a pseudonormalization pattern, consistent with probable elevated filling pressures. Right Ventricle: The right ventricle is borderline dilated. The right ventricular systolic function is normal. Atria: The left atrial size is normal. Right atrial size is normal. There is no Doppler evidence for an interatrial shunt. Mitral Valve: The mitral valve is normal in structure and function. There is mild mitral regurgitation. Aortic Valve: The aortic valve is trileaflet. The aortic valve opens well. There is no aortic valve stenosis. No aortic regurgitation is present. Tricuspid Valve: The tricuspid valve is normal in structure and function. There is trace tricuspid regurgitation. Pulmonary artery pressures cannot be estimated because of the lack of a measurable TR jet velocity. Pulmonic Valve: The pulmonic valve leaflets are thin and pliable; valve motion is normal. There is no pulmonic valvular regurgitation. Great Vessels: The aortic root is normal size. The ascending aorta is moderately enlarged. The IVC is of normal diameter and collapses greater than 50% with a sniff. This suggests a low right atrial pressure of 3 mm Hg. Pericardium/ Pleura There is no pericardial effusion. There is no pleural effusion. MMode/2D Measurements & Calculations LVIDd: 5.7 cm LVOT diam: 2.2 cm LVIDs: 4.8 cm Ao root diam: 3.3 cm FS: 15.2 % asc Aorta Diam: 4.2 cm EPSS: 2.0 cm Ao Arch Diam (Prox Trans): 3.0 cm IVSd: 1.1 cm LVPWd: 0.95 cm LV case. diameter/BSA (cm/m^2): 2.7 LV sys. diameter/BSA (cm/m^2): 2.3 LA A2 area: 20.4 cm2 RA long axis: 5.8 cm LA A4 area: 18.6 cm2 RA area: 14.2 cm2 LA length (vol): 5.1 cm RA vol: 29.4 ml LA vol: 63.1 ml RA : 14.1 ml/m2 LA vol index: 30.2 ml/m2 IVC diam: 1.8 cm RVD1 (basal): 4.0 cm RVD2 (mid): 3.1 cm TAPSE: 1.7 cm Doppler Measurements & Calculations Ao V2 max: 94.5 cm/sec LVOT Max Anuj: 63.9 cm/sec Ao V2 mean: 73.7 cm/sec LV V1 max P.6 mmHg Ao max P.6 mmHg LV V1 VTI: 12.1 cm Ao mean P.3 mmHg DREA(I,D): 2.4 cm2 Ao V2 VTI: 19.6 cm DREA(V,D): 2.6 cm2 sev ratio: 0.62 DREA indexed to BSA (cm^2/m^2): 1.1 MV E max anuj: 99.0 cm/sec PA V2 max: 80.9 cm/sec MV A max anuj: 76.9 cm/sec PA V2 mean: 60.1 cm/sec MV E/A: 1.3 PA mean P.6 mmHg Med Peak E' Anuj: 6.1 cm/sec PA pr(Accel): 39.6 mmHg E/E' med: 16.1 Lat Peak E' Anuj: 7.1 cm/sec E/E' lat: 13.9 E/e' average: 15.0 MV dec time: 0.17 sec SV(LVOT): 46.3 ml Electronically signed by: Carloz Simpson on Reading Physician:08/07/2023 01:26 PM
== END ==
LOC: ECHO 06:44
PROVIDERS: PCP Registered Nurse; Referring Provider Registered Nurse; Visit Provider Registered Nurse
DX: I34.0 Nonrheumatic mitral (valve) insufficiency (principal); I77.89 Other specified disorders of arteries and arterioles; I25.10 Atherosclerotic heart disease of native coronary artery without angina pectoris; R05.3 Chronic cough
CPT/HCPCS: 93306

== ENCOUNTER → 2023-10-16 13:38 | Outpatient (CLI) | payer OTHER, SELFPAY ==
--- NOTE | 2023-10-17 22:59 | DI.NM.S_ITS ---
DATE OF SERVICE: 10/16/2023 PROCEDURE PERFORMED: Pharmacologic vasodilator stress and rest myocardial perfusion imaging with gating to assess ejection fraction and regional wall motion. 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 CARDIAC STRESS: Per protocol, 0.4 mg of regadenoson was infused, augmented with walking, with a normal hemodynamic response with the patient achieving a maximum heart rate of 131 bpm (93% of his predicted maximum). With this, he had no chest discomfort or other anginal symptoms although he had mild dyspnea. His resting ECG showed sinus rhythm with left anterior fascicular block and incomplete RBBB but relatively normal ST segments and occasional PACs and PVCs. With stress, there are no significant ST-segment shifts. He continued to have occasional PVCs, more notable in the recovery. Per protocol, 24.3 millicuries of technetium-99m Myoview was injected and he was imaged 15 minutes later using a gated SPECT acquisition protocol. On the day prior while at rest, he had been injected with 25.1 millicuries of technetium-99m Myoview and was imaged 15 minutes later, again using gated SPECT acquisition protocol. FINDINGS: 1. Raw data. There is fairly good myocardial tracer uptake. The lung/heart ratio is normal at 0.29 with normal TID ratio of 0.95. 2. Quantitated gated SPECT: Post-stress ejection fraction is estimated at 44% with mild global hypokinesis with more severe hypokinesis in the proximal to mid inferior wall, extending into the inferolateral wall. The resting ejection fraction is also 44% with an identical contraction pattern without any areas of improvement. The resting end-diastolic volume is mildly increased at 135 mL. 3. Myocardial perfusion imaging: Post-stress supine images show a moderate perfusion defect in the proximal inferior and inferolateral wall, extending into the mid and distal inferolateral wall that persists on the prone images but no other perfusion defects. The resting images show an identical perfusion pattern without any areas of improvement. IMPRESSION: 1. Abnormal myocardial perfusion study. 2. Moderate sized, moderate intensity fixed perfusion defect involving the proximal to mid inferior wall, extending in the mid and distal inferolateral wall, consistent with previous nontransmural infarction but without reversibility to suggest any myocardial ischemia. 3. Mildly reduced left ventricular systolic function with mild global hypokinesis, but worse in the inferior and inferolateral wall, supporting previous myocardial infarction. Left ventricular volumes are mildly increased with resting end-diastolic volume of 135 mL. 4. No angina or ECG evidence of ischemia with pharmacologic stress, augmented with exercise. There were occasional isolated PVCs, but no complex ventricular ectopy. 5. There is no previous study available for review for comparison. Mau Hester Jr - RS/fn/ doc#: [id number]/job#: [id number] dd: 10/17/2023 17:10:00 dt: 10/17/2023 21:16:00 DICTATING MD/COPIES TO: Feng Adames MD; Carloz Mckeon MD COPIES MNE: BREE;
== END ==
PROVIDERS: PCP Registered Nurse; Referring Provider Internal Medicine Interventional Cardiology; Visit Provider Internal Medicine Interventional Cardiology
DX: I25.10 Atherosclerotic heart disease of native coronary artery without angina pectoris (principal); R94.39 Abnormal result of other cardiovascular function study; I25.2 Old myocardial infarction; Z95.5 Presence of coronary angioplasty implant and graft
CPT/HCPCS: 78452; 93017; A9502; J2785

== ENCOUNTER → 2023-12-03 10:39 | Outpatient (CLI) | payer OTHER, SELFPAY ==
[2023-12-03 12:32] LABS: BUN Creatinine Ratio 15.6 (6-22); Blood Urea Nitrogen 14 mg/dL (9-20); Calcium 8.8 mg/dL (8.4-10.2); Carbon Dioxide 29 mmol/L (22-32); Chloride 106 mmol/L (98-107); Cholesterol 144 mg/dL (140-199); Estimated Glomerular Filt Rate > 60 mL/min (>60); Glucose 116 mg/dL (80-110); HDL Cholesterol 48 mg/dL (40-60); HEMOLYSIS < 15 (0-50); Hemoglobin A1C% w Est Avg Glu 5.5 % (4.0-6.0); LDL Cholesterol Calculated 63 mg/dL (<100); Sodium 141 mmol/L (137-145); Triglycerides 167 mg/dL (35-150)
== END ==
LOC: LAB 10:41
PROVIDERS: PCP Registered Nurse; Referring Provider Internal Medicine Interventional Cardiology; Visit Provider Internal Medicine Interventional Cardiology
DX: I25.10 Atherosclerotic heart disease of native coronary artery without angina pectoris (principal); I42.8 Other cardiomyopathies
CPT/HCPCS: 36415; 80048; 80061; 83036

== ENCOUNTER 2023-12-26 19:57 | Emergency (ER) | payer OTHER, SELFPAY ==
[2023-12-26] VITALS (10 sets, daily range): BP systolic 132–174; BP diastolic 70–106; PULSE 71–89; RESP 14–24; TEMP 36.9; O2SAT 95–99; BMI 30.4
--- NOTE | 2023-12-26 20:03 | DI.RAD.S_ITS ---
PROCEDURE: XR CHEST 1V INDICATIONS: chest pain TECHNIQUE: One view of the chest was acquired. COMPARISON: [facility], CR, XR CHEST 2V, 07/04/2023, 12:37. FINDINGS: Surgical changes and devices: None. Lungs and pleura: Lungs are clear. No pleural effusions or pneumothorax. Mediastinum: Mediastinal contours appear normal. Heart size is normal. Bones and chest wall: No suspicious bony lesions. Overlying soft tissues appear unremarkable. IMPRESSION: Stable radiographic evaluation of the chest without acute cardiopulmonary abnormalities or focal consolidation. Dictated by: González Corado M.D. on 12/26/2023 at 20:38 Approved by: González Corado M.D. on 12/26/2023 at 20:39
--- NOTE | 2023-12-26 20:03 | EKG_ITS ---
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
[2023-12-26] MEDS: ASPIRIN 81 MG CHEW TAB 324 MG PO (20:26)
[2023-12-26 20:47] LABS: Add Manual Diff / Slide Review NO; Basophils Absolute Auto 100 /uL (0-100); Basophils Percent Auto 0.9 % (0-2); Eosinophils Absolute Auto 300 /uL (0-450); Hematocrit 49.3 % (41-53); Hemoglobin 16.9 g/dL (13.5-17.5); Lymphocytes Absolute Auto 2000 /uL (1100-4500); Lymphocytes Percent Auto 26.7 % (25-40); Mean Corpuscular HGB Conc 34.3 % (30-36); Mean Corpuscular Hemoglobin 30.8 PG (26-34); Mean Corpuscular Volume 89.7 fL (80-100); Monocytes Absolute Auto 600 /uL (0-900); Monocytes Percent Auto 7.6 % (3-14); Neutrophils Absolute Auto 4500 /uL (1500-7000); Neutrophils Percent Auto 60.8 % (50-75); Platelet Count 181 X10^3/uL (150-400); Red Blood Cell Count 5.49 X10^6/uL (4.5-5.9); Red Cell Distribution Width 13.8 % (11.6-14.8); White Blood Cell Count 7.4 X10^3/uL (4.5-11.0)
[2023-12-26 20:50] LABS: Prothrombin Time 11.5 SECONDS (9.4-12.5)
[2023-12-26 20:52] LABS: PTT Partial Thromboplastin Tim 39 SECONDS (25.1-36.5)
--- NOTE | 2023-12-26 20:52 | ED.CHESTPAIN ---
HPI - Chest Pain <Sotero Brown MD - Last Filed: 12/27/23 16:24> General Chief Complaint: Chest Pain Stated Complaint: chest px, cardiac pt Time Seen by Provider: 12/26/23 20:51 Source: patient Mode of arrival: Wheelchair Limitations: no limitations History of Present Illness HPI narrative: 77-year-old male with resolved chest pain. History of coronary artery disease status post coronary vessel stenting [address] [facility] business controller [facility]ill[facility] seen by his business controller about 1 month ago, nuclear medicine stress testing at that time that was reportedly reassuring. He has been titrated on Entresto for a number of months, last dose increase was about 1 month, still taking that stable increased dose, apparently with good response on serial echocardiograms and lab tests in follow up per patient. This evening patient was having political argument with family member after dinner, then developed chest pressure pain symptoms. No associated diaphoresis, no nausea or vomiting. No palpitations or heart racing sensation. No syncope or presyncope symptoms. No radiation of the discomfort to either arm, jaw, neck, back, legs. Pain was decreasing on arrival then resolved during ED evaluation. Related Data Home Medications Medication Instructions Recorded Confirmed aspirin 81 mg tablet,delayed 81 mg PO QDAY ##0 11/28/16 12/02/19 release betamethasone dipropionate 0.05 % 1 applictn topical BID PRN 04/08/19 12/02/19 topical cream ketoconazole 2 % shampoo 1 applictn topical .COMPLEX PRN 04/08/19 12/02/19 melatonin 3 mg capsule 3 mg PO BEDTIME PRN 04/08/19 12/02/19 nitroglycerin 0.4 mg sublingual 0.4 mg sublingual PRN ##0 04/08/19 12/02/19 tablet (Nitrostat) lisinopril 20 mg tablet 20 mg PO DAILY 09/02/19 12/02/19 Previous Rx's Medication Instructions Recorded fluticasone propionate 50 2 spray intranasal DAILY #18.2 mL 11/19/19 mcg/actuation nasal spray,suspension (Flonase Allergy Relief) atorvastatin 20 mg tablet See Rx Instructions .Route 06/07/20 .COMPLEX #90 tabs tamsulosin 0.4 mg capsule See Rx Instructions .Route 04/12/21 .COMPLEX #90 caps metoprolol succinate 25 mg See Rx Instructions .Route 07/17/21 tablet,extended release 24 hr .COMPLEX #90 tabs Allergies Allergy/AdvReac Type Severity Reaction Status Date / Time No Known Drug Allergies Allergy Verified 12/02/19 07:56 Review of Systems <Sotero Brown MD - Last Filed: 12/27/23 16:24> Review of Systems Narrative: See HPI Patient History <Sotero Brown MD - Last Filed: 12/27/23 16:24> Medical History (Updated 12/27/23 @ 03:05 by Sotero Brown MD) Lump in armpit Somatic dysfunction of lower extremity Chronic pain of right knee Body posture problem Sinusitis Lower urinary tract symptoms (LUTS) Hematoma Abrasion Shingles (2006) Chicken pox Eczema Hyperlipidemia Hypertension RLS (restless legs syndrome) (2010) Surgical History History of cataract removal with insertion of prosthetic lens Family History Father Heart disease Hypertension Mother Diabetes mellitus Heart disease Hypertension Stroke History of breast cancer Social History Smoking Status: Former smoker Smoking Status: Former smoker Substance Use Type: does not use Exam <Sotero Brown MD - Last Filed: 12/27/23 16:24> Narrative Exam Narrative: GENERAL: Well-developed patient, in mild distress. HEAD: Atraumatic. Normocephalic. EYES: Pupils equal round and reactive. Extraocular motions intact. No scleral icterus. No injection or drainage. ENT: Nose without bleeding, purulent drainage. Throat without erythema, tonsillar hypertrophy or exudate. Airway patent. NECK: Trachea midline. Non tender CARDIOVASCULAR: Regular rate and rhythm without murmurs, gallops, or rubs. RESPIRATORY: Clear to auscultation. Breath sounds equal bilaterally. No wheezes, rales, or rhonchi. No chest wall tenderness. GASTROINTESTINAL: Abdomen soft, non-tender, nondistended. EXTREMITIES: No edema or joint tenderness. BACK: Nontender without deformity or crepitance. No flank tenderness. NEURO: AOx3. Motor functions grossly nonfocal SKIN: No rash or erythema of visible areas Initial Vital Signs Initial Vital Signs: Vital Signs Temperature 98.5 F 12/26/23 19:59 Pulse Rate 89 12/26/23 19:59 Respiratory Rate 22 12/26/23 19:59 Blood Pressure 174/106 H 12/26/23 19:59 Pulse Oximetry 99 12/26/23 19:59 Oxygen Delivery Method Room Air 12/26/23 19:59 <Becca Hurt DO - Last Filed: 12/27/23 15:52> Initial Vital Signs Initial Vital Signs: Vital Signs Temperature 98.5 F 12/26/23 19:59 Pulse Rate 89 12/26/23 19:59 Respiratory Rate 22 12/26/23 19:59 Blood Pressure 174/106 H 12/26/23 19:59 Pulse Oximetry 99 12/26/23 19:59 Oxygen Delivery Method Room Air 12/26/23 19:59 Course <Sotero Brown MD - Last Filed: 12/27/23 16:24> Orders Ordered: ED Orders 12/27/23 08:54 PTT Partial Thromboplastin Marshal Q6H Discontinued Medications Aspirin (Aspirin 81 Mg Chew Tab) 324 mg PO NOW ONE Stop: 12/26/23 20:04 Last Admin: 12/26/23 20:26 Dose: 324 mg Documented By: TINA Heparin Sodium (Porcine) (Heparin 5,000 Unit/Ml Vial) 5,000 unit IV NOW ONE Stop: 12/27/23 02:46 Last Admin: 12/27/23 03:05 Dose: 5,000 unit Documented By: TINA Heparin Sodium/Dextrose (Heparin Drip) 25,000 unit in 500 mls @ 21.772 mls/hr IV CONT HUMBERTO; Protocol Last Titration: 12/27/23 11:14 Dose: 8 units/kg/hr, 14.515 mls/hr Documented By: RANCHO Co-signed By: FLYNN Titration: 12/27/23 09:46 Dose: 8 units/kg/hr, 14.515 mls/hr Documented By: RANCHO Co-signed By: SHAINA Admin: 12/27/23 03:05 Dose: 11 units/kg/hr, 19.958 mls/hr Documented By: TINA Co-signed By: ARIADNA Vital Signs Vital signs: Vital Signs - 8 hr 12/27/23 08:30 12/27/23 08:31 12/27/23 08:31 Pulse Rate 70 70 Respiratory Rate 17 18 Blood Pressure 141/74 H Pulse Oximetry 98 97 12/27/23 09:00 12/27/23 09:00 12/27/23 09:30 Pulse Rate 73 Respiratory Rate 18 Blood Pressure 146/84 H 153/82 H Pulse Oximetry 98 12/27/23 09:30 12/27/23 09:30 12/27/23 09:30 Pulse Rate 73 73 Respiratory Rate 27 H 27 H Blood Pressure 153/82 H Pulse Oximetry 99 99 12/27/23 10:00 12/27/23 10:00 12/27/23 10:30 Pulse Rate 71 Respiratory Rate 27 H Blood Pressure 145/90 H 147/86 H Pulse Oximetry 98 12/27/23 10:30 Pulse Rate 81 Respiratory Rate 22 Blood Pressure Pulse Oximetry 98 <Becca Hurt DO - Last Filed: 12/27/23 15:52> Orders Ordered: ED Orders 12/27/23 08:54 PTT Partial Thromboplastin Marshal Q6H Discontinued Medications Aspirin (Aspirin 81 Mg Chew Tab) 324 mg PO NOW ONE Stop: 12/26/23 20:04 Last Admin: 12/26/23 20:26 Dose: 324 mg Documented By: TINA Heparin Sodium (Porcine) (Heparin 5,000 Unit/Ml Vial) 5,000 unit IV NOW ONE Stop: 12/27/23 02:46 Last Admin: 12/27/23 03:05 Dose: 5,000 unit Documented By: TINA Heparin Sodium/Dextrose (Heparin Drip) 25,000 unit in 500 mls @ 21.772 mls/hr IV CONT HUMBERTO; Protocol Last Titration: 12/27/23 11:14 Dose: 8 units/kg/hr, 14.515 mls/hr Documented By: RANCHO Co-signed By: FLYNN Titration: 12/27/23 09:46 Dose: 8 units/kg/hr, 14.515 mls/hr Documented By: RANCHO Co-signed By: SHAINA Admin: 12/27/23 03:05 Dose: 11 units/kg/hr, 19.958 mls/hr Documented By: TINA Co-signed By: ARIADNA Vital Signs Vital signs: Vital Signs - 8 hr 12/27/23 08:30 12/27/23 08:31 12/27/23 08:31 Pulse Rate 70 70 Respiratory Rate 17 18 Blood Pressure 141/74 H Pulse Oximetry 98 97 12/27/23 09:00 12/27/23 09:00 12/27/23 09:30 Pulse Rate 73 Respiratory Rate 18 Blood Pressure 146/84 H 153/82 H Pulse Oximetry 98 12/27/23 09:30 12/27/23 09:30 12/27/23 09:30 Pulse Rate 73 73 Respiratory Rate 27 H 27 H Blood Pressure 153/82 H Pulse Oximetry 99 99 12/27/23 10:00 12/27/23 10:00 12/27/23 10:30 Pulse Rate 71 Respiratory Rate 27 H Blood Pressure 145/90 H 147/86 H Pulse Oximetry 98 12/27/23 10:30 Pulse Rate 81 Respiratory Rate 22 Blood Pressure Pulse Oximetry 98 MDM - Chest Pain <Sotero Brown MD - Last Filed: 12/27/23 16:24> Lab Data Attestation: I reviewed the patient's lab results. Lab results narrative: White blood cell count 7400, hemoglobin 6.9, platelets a [id number] adequate, basic metabolic panel components unremarkable, liver functions normal. Lipase normal. Troponin pending 12/27/23 07:17 12/27/23 07:17 Labs: Lab Results 12/26/23 12/26/23 12/27/23 Range/Units 20:20 22:18 02:02 WBC 7.4 (4.5-11.0) X10^3/uL RBC 5.49 (4.5-5.9) X10^6/uL Hgb 16.9 (13.5-17.5) g/dL Hct 49.3 (41-53) % MCV 89.7 (80-100) fL MCH 30.8 (26-34) PG MCHC 34.3 (30-36) % RDW 13.8 (11.6-14.8) % Plt Count 181 (150-400) X10^3/uL Neut % (Auto) 60.8 (50-75) % Lymph % (Auto) 26.7 (25-40) % Dougherty % (Auto) 7.6 (3-14) % Eos % (Auto) 4.0 (2-4) % Baso % (Auto) 0.9 (0-2) % Neut # (Auto) 4500 (8325-2851) /uL Lymph # (Auto) 2000 (2443-8107) /uL Dougherty # (Auto) 600 (0-900) /uL Eos # (Auto) 300 (0-450) /uL Baso # (Auto) 100 (0-100) /uL PT 11.5 (9.4-12.5) SECONDS INR 1.0 (0.9-1.3) APTT 39 H (25.1-36.5) SECONDS Sodium 139 (137-145) mmol/L Potassium 3.8 (3.4-5.1) mmol/L Chloride 104 (98-107) mmol/L Carbon Dioxide 27 (22-32) mmol/L BUN 17 (9-20) mg/dL Creatinine 0.95 (0.66-1.25) mg/dL Estimated GFR > 60 (>60) mL/min BUN/Creatinine Ratio 17.9 (6-22) Glucose 160 H (80-110) mg/dL Calcium 8.7 (8.4-10.2) mg/dL Magnesium 1.8 (1.6-2.3) mg/dL Total Bilirubin 0.8 (0.2-1.3) mg/dL AST 25 (17-59) IU/L ALT 19 (<50) IU/L Alkaline Phosphatase 67 (38-126) U/L Total Creatine Kinase 51 L (55-170) U/L Troponin I < 0.012 0.065 H 0.425 H* (0.01-0.034) ng/mL NT-Pro-B Natriuret Pep 231 (<450) pg/mL Total Protein 7.4 (6.3-8.2) g/dL Albumin 4.2 (3.5-5.0) g/dL Globulin 3.2 (1.7-4.1) g/dL Albumin/Globulin Ratio 1.3 (1.0-2.8) Lipase 47 (23-300) U/L 12/27/23 12/27/23 Range/Units 07:17 08:54 WBC 6.5 (4.5-11.0) X10^3/uL RBC 5.07 (4.5-5.9) X10^6/uL Hgb 15.5 (13.5-17.5) g/dL Hct 45.5 (41-53) % MCV 89.7 (80-100) fL MCH 30.6 (26-34) PG MCHC 34.1 (30-36) % RDW 13.7 (11.6-14.8) % Plt Count 163 (150-400) X10^3/uL Neut % (Auto) 53.9 (50-75) % Lymph % (Auto) 30.3 (25-40) % Dougherty % (Auto) 9.0 (3-14) % Eos % (Auto) 5.3 H (2-4) % Baso % (Auto) 1.5 (0-2) % Neut # (Auto) 3500 (8337-4323) /uL Lymph # (Auto) 2000 (7688-6192) /uL Dougherty # (Auto) 600 (0-900) /uL Eos # (Auto) 300 (0-450) /uL Baso # (Auto) 100 (0-100) /uL PT (9.4-12.5) SECONDS INR (0.9-1.3) APTT 125 H* D (25.1-36.5) SECONDS Sodium 138 (137-145) mmol/L Potassium 3.9 (3.4-5.1) mmol/L Chloride 106 (98-107) mmol/L Carbon Dioxide 26 (22-32) mmol/L BUN 14 (9-20) mg/dL Creatinine 0.72 (0.66-1.25) mg/dL Estimated GFR > 60 (>60) mL/min BUN/Creatinine Ratio 19.4 (6-22) Glucose 116 H (80-110) mg/dL Calcium 8.3 L (8.4-10.2) mg/dL Magnesium (1.6-2.3) mg/dL Total Bilirubin 1.1 (0.2-1.3) mg/dL AST 28 (17-59) IU/L ALT 16 (<50) IU/L Alkaline Phosphatase 52 (38-126) U/L Total Creatine Kinase (55-170) U/L Troponin I 0.689 H* (0.01-0.034) ng/mL NT-Pro-B Natriuret Pep (<450) pg/mL Total Protein 6.4 (6.3-8.2) g/dL Albumin 3.9 (3.5-5.0) g/dL Globulin 2.5 (1.7-4.1) g/dL Albumin/Globulin Ratio 1.6 (1.0-2.8) Lipase (23-300) U/L Imaging Data Chest x-ray: Radiologist's Impression: [address] [address] XRay Report Signed Patient: Talib Hester Jr MR#: [id number] : 1945 Acct:[id number] Age/Sex: 77 / M Date of Service: 12/26/23 Loc: ED Accession Number: [id number] Procedure: XR chest 1V Ordering Provider: Sotero Brown MD PROCEDURE: XR CHEST 1V INDICATIONS: chest pain TECHNIQUE: One view of the chest was acquired. COMPARISON: [facility], , XR CHEST 2V, 07/04/2023, 12:37. FINDINGS: Surgical changes and devices: None. Lungs and pleura: Lungs are clear. No pleural effusions or pneumothorax. Mediastinum: Mediastinal contours appear normal. Heart size is normal. Bones and chest wall: No suspicious bony lesions. Overlying soft tissues appear unremarkable. IMPRESSION: Stable radiographic evaluation of the chest without acute cardiopulmonary abnormalities or focal consolidation. Dictated by: González Corado M.D. on 12/26/2023 at 20:38 Approved by: González Corado M.D. on 12/26/2023 at 20:39 ECG Data Attestation: I personally reviewed and interpreted this ECG as follows: Interpretation: Sinus rhythm with rate 88, right bundle-branch block, left anterior fascicular block. PA 180, QRS 144, QTC 505. Similar blocks noted on EKG 04/19/2017, latest available comparison study. 0302, sinus rhythm with rate 71, right bundle-branch block with left anterior fascicular block pattern again noted, no significant change from previous study. Unifocal PVCs noted. PA 188, QRS 154, QTC 482. MDM Narrative Medical decision making narrative: 77-year-old male with history of CAD, prior coronary stenting, recent months titrating Entresto with reported good effect, nuclear medicine stress test last month reportedly reassuring. Had chest discomfort central anterior lower chest in context of political argument with family members after dinner. Symptoms resolving then resolved after triage to the emergency department without specific treatment. Screening EKG showed right bundle branch block and left anterior fascicular block changes, similar to latest available March 2017 study. Initial troponin negative/nonmeasurable. Chest x-ray negative. We will await interval troponin. Repeat troponin 0.06 indeterminate range. Still pain free. Will further trend with another interval troponin. Patient agreeable Repeat troponin 0.41 rising further, now positiive >0.12, consistent with non-STEMI. Still chest pain-free. Will initiate IV heparin bolus/infusion per ACS protocol. Patient given aspirin prior. Transfer to labeler capable facility. [facility] bed queries: waitlisted [facility], [facility], [facility]. Will consult [facility] 0561, case discussed with [facility], await call back for prospective distant tertiary transfer facilities. at bedside again, discussed with patient, stated they will travel wherever necessary 0700, dispo plan still pending, transfer to cath-lab capable facility, on heparin drip, had oral spirin, signed out to Dr Charli Hurt patient signed out to me by Dr. Brown seen evaluated patient myself. Weight listed multiple places. Awaiting repeat troponin. Concern for known coronary artery disease with elevated troponin. Getting echo this morning. Patient is followed by [facility] cardiology. No longer having any sort of chest pain. Echo report today shows an EF of 30-35% with mild global hypokinesis that is more notable on proximal and mid inferior and in for a posterior segment 0945 Dr. Johnson at [facility], updated on patient's symptoms test results agrees for admission. Cardiology will see once patient arrived. <Becca Hurt, DO - Last Filed: 12/27/23 15:52> Lab Data Labs: Lab Results 12/26/23 12/26/23 12/27/23 Range/Units 20:20 22:18 02:02 WBC 7.4 (4.5-11.0) X10^3/uL RBC 5.49 (4.5-5.9) X10^6/uL Hgb 16.9 (13.5-17.5) g/dL Hct 49.3 (41-53) % MCV 89.7 (80-100) fL MCH 30.8 (26-34) PG MCHC 34.3 (30-36) % RDW 13.8 (11.6-14.8) % Plt Count 181 (150-400) X10^3/uL Neut % (Auto) 60.8 (50-75) % Lymph % (Auto) 26.7 (25-40) % Dougherty % (Auto) 7.6 (3-14) % Eos % (Auto) 4.0 (2-4) % Baso % (Auto) 0.9 (0-2) % Neut # (Auto) 4500 (2358-6226) /uL Lymph # (Auto) 2000 (0058-7948) /uL Dougherty # (Auto) 600 (0-900) /uL Eos # (Auto) 300 (0-450) /uL Baso # (Auto) 100 (0-100) /uL PT 11.5 (9.4-12.5) SECONDS INR 1.0 (0.9-1.3) APTT 39 H (25.1-36.5) SECONDS Sodium 139 (137-145) mmol/L Potassium 3.8 (3.4-5.1) mmol/L Chloride 104 (98-107) mmol/L Carbon Dioxide 27 (22-32) mmol/L BUN 17 (9-20) mg/dL Creatinine 0.95 (0.66-1.25) mg/dL Estimated GFR > 60 (>60) mL/min BUN/Creatinine Ratio 17.9 (6-22) Glucose 160 H (80-110) mg/dL Calcium 8.7 (8.4-10.2) mg/dL Magnesium 1.8 (1.6-2.3) mg/dL Total Bilirubin 0.8 (0.2-1.3) mg/dL AST 25 (17-59) IU/L ALT 19 (<50) IU/L Alkaline Phosphatase 67 (38-126) U/L Total Creatine Kinase 51 L (55-170) U/L Troponin I < 0.012 0.065 H 0.425 H* (0.01-0.034) ng/mL NT-Pro-B Natriuret Pep 231 (<450) pg/mL Total Protein 7.4 (6.3-8.2) g/dL Albumin 4.2 (3.5-5.0) g/dL Globulin 3.2 (1.7-4.1) g/dL Albumin/Globulin Ratio 1.3 (1.0-2.8) Lipase 47 (23-300) U/L 12/27/23 12/27/23 Range/Units 07:17 08:54 WBC 6.5 (4.5-11.0) X10^3/uL RBC 5.07 (4.5-5.9) X10^6/uL Hgb 15.5 (13.5-17.5) g/dL Hct 45.5 (41-53) % MCV 89.7 (80-100) fL MCH 30.6 (26-34) PG MCHC 34.1 (30-36) % RDW 13.7 (11.6-14.8) % Plt Count 163 (150-400) X10^3/uL Neut % (Auto) 53.9 (50-75) % Lymph % (Auto) 30.3 (25-40) % Dougherty % (Auto) 9.0 (3-14) % Eos % (Auto) 5.3 H (2-4) % Baso % (Auto) 1.5 (0-2) % Neut # (Auto) 3500 (0417-9726) /uL Lymph # (Auto) 2000 (0378-8296) /uL Dougherty # (Auto) 600 (0-900) /uL Eos # (Auto) 300 (0-450) /uL Baso # (Auto) 100 (0-100) /uL PT (9.4-12.5) SECONDS INR (0.9-1.3) APTT 125 H* D (25.1-36.5) SECONDS Sodium 138 (137-145) mmol/L Potassium 3.9 (3.4-5.1) mmol/L Chloride 106 (98-107) mmol/L Carbon Dioxide 26 (22-32) mmol/L BUN 14 (9-20) mg/dL Creatinine 0.72 (0.66-1.25) mg/dL Estimated GFR > 60 (>60) mL/min BUN/Creatinine Ratio 19.4 (6-22) Glucose 116 H (80-110) mg/dL Calcium 8.3 L (8.4-10.2) mg/dL Magnesium (1.6-2.3) mg/dL Total Bilirubin 1.1 (0.2-1.3) mg/dL AST 28 (17-59) IU/L ALT 16 (<50) IU/L Alkaline Phosphatase 52 (38-126) U/L Total Creatine Kinase (55-170) U/L Troponin I 0.689 H* (0.01-0.034) ng/mL NT-Pro-B Natriuret Pep (<450) pg/mL Total Protein 6.4 (6.3-8.2) g/dL Albumin 3.9 (3.5-5.0) g/dL Globulin 2.5 (1.7-4.1) g/dL Albumin/Globulin Ratio 1.6 (1.0-2.8) Lipase (23-300) U/L Imaging Data Echo: Radiologist's Impression: :Name: TALIB HESTER JR Bobby Study Date: 12/27/2023 Height: 68 in : :[facility] ReadingLocation: Weight: 200 lb : : Gender: Male BSA: 2.0 m2 : :: 1945 Age: 77 yrs BP: 149/86 mmHg: :Reason For Study: NSTEMI : :Ordering Physician: CHARLI, : :BECCA Performed By: Farhad Olson : :Referring: BECCA HURT : + + Interpretation Summary The ejection fraction is estimated to be 30-35%. Mild global hypokinesis that is more notable in the proximal to mid inferior and inferoposterior segments Compared to the prior exam, the left ventricular wall motion has not changed. Procedure: A two-dimensional transthoracic echocardiogram with color flow and Doppler was performed in limited views only. The study quality was technically good. Comparison is made with the echocardiogram of 08/05/2023. The patient was in normal sinus rhythm during the exam. Left Ventricle: The left ventricle is normal in size. Left ventricular wall thickness is mildly increased. The ejection fraction is estimated to be 30- 35%. Mild global hypokinesis that is more notable in the proximal to mid inferior and inferoposterior segments. Compared to the prior exam, the left ventricular wall motion has not changed. Mitral Valve: There is trace mitral regurgitation. Great Vessels: The IVC is of normal diameter and collapses greater than 50% with a sniff. This suggests a low right atrial pressure of 3 mm Hg. MMode/2D Measurements & Calculations LVIDd: 5.1 cm LVIDs: 4.4 cm FS: 13.7 % IVSd: 1.3 cm LVPWd: 0.89 cm LV case. diameter/BSA (cm/m^2): 2.5 LV sys. diameter/BSA (cm/m^2): 2.1 MDM Narrative Medical decision making narrative: 77-year-old male with history of CAD, prior coronary stenting, recent months titrating Entresto with reported good effect, nuclear medicine stress test last month reportedly reassuring. Had chest discomfort central anterior lower chest in context of political argument with family members after dinner. Symptoms resolving then resolved after triage to the emergency department without specific treatment. Screening EKG showed right bundle branch block and left anterior fascicular block changes, similar to latest available March 2017 study. Initial troponin negative/nonmeasurable. Chest x-ray negative. We will await interval troponin. Repeat troponin 0.06 indeterminate range. Still pain free. Will further trend with another interval troponin. Patient agreeable Repeat troponin 0.41 rising further, now positiive >0.12, consistent with non-STEMI. Still pain-free. Will initiate IV heparin bolus/infusion per ACS protocol. Patient given aspirin. Transfer to labeler capable facility. [employer] regional bed queries, waitlisted [facility]. Will consult [facility] 05, case discussed with [facility], await call back for prospective distant tertiary facilities. at bedside again, discussed with patient, stated they will travel were ever as necessary 0700, dispo plan still pending, transfer to cath-lab capable facility, on heparin drip, had oral spirin, signed out to Dr Charli Hurt patient signed out to me by Dr. Brown seen evaluated patient myself. Weight listed multiple places. Awaiting repeat troponin. Concern for known coronary artery disease with elevated troponin. Getting echo this morning. Patient is followed by [facility] cardiology. No longer having any sort of chest pain. Echo report today shows an EF of 30-35% with mild global hypokinesis that is more notable on proximal and mid inferior and in for a posterior segment 0945 Dr. Johnson at [facility], updated on patient's symptoms test results agrees for admission. Cardiology will see once patient arrived. Critical Care Time <Becca Hurt, DO - Last Filed: 12/27/23 15:52> Critical Care Time Critical Care Time: Yes Total Critical Care Time: 31 Attestation: The high probability of a clinically significant, sudden or life threatening deterioration of the [cardiovascular] system(s) required my full and direct attention, intervention and personal management. The aggregate critical care time was 31 minutes. This time is in addition to time spent performing reported procedures but includes the following: [x] Data Review and interpretation [x] Patient assessment and monitoring of vital signs [x] Documentation [x] Medication orders and management Discharge Plan Departure Patient Disposition: [facility] Clinical Impression: Chest pain, Acute non-ST segment elevation myocardial infarction Prescriptions: No Action fluticasone propionate [Flonase Allergy Relief] 50 mcg/actuation spray,suspension 2 spray NASAL DAILY Qty: 18.2 0RF Rx Instructions: administer into each nostril aspirin 81 MG tablet,delayed release (DR/EC) 81 mg PO QDAY Qty: 0 nitroglycerin [Nitrostat] 0.4 mg tablet, sublingual 0.4 mg Sublingual PRNQty: 0 lisinopril 20 mg tablet 20 mg PO DAILY atorvastatin 20 mg tablet See Rx Instructions .ROUTE .COMPLEX Qty: 90 0RF Dose Instruction: take 1 tablet by mouth once daily Rx Instructions: take 1 tablet by mouth once daily tamsulosin 0.4 mg capsule See Rx Instructions .ROUTE .COMPLEX Qty: 90 0RF Dose Instruction: take 1 capsule by mouth once daily Rx Instructions: take 1 capsule by mouth once daily metoprolol succinate 25 mg tablet extended release 24 hr See Rx Instructions .ROUTE .COMPLEX Qty: 90 0RF Dose Instruction: take 1 tablet by mouth once daily Rx Instructions: take 1 tablet by mouth once daily ketoconazole 2 % shampoo 1 applictn Topical .COMPLEX PRN Rx Instructions: 1 applic topical 2-3x week PRN; For itching/rash on scalp betamethasone dipropionate 0.05 % cream 1 applictn TOP BID PRN melatonin 3 mg capsule 3 mg PO BEDTIME PRN Referrals: Amber Ordoñez ARNP [Primary Care Provider] - Carloz Mckeon MD [Physician] - Stand Alone Forms: Patient Portal/API/Survey
[2023-12-26 20:55] LABS: Alanine Aminotransferase 19 IU/L (<50); Albumin 4.2 g/dL (3.5-5.0); Albumin Globulin Ratio 1.3 (1.0-2.8); Alkaline Phosphatase 67 U/L (38-126); Aspartate Aminotransferase 25 IU/L (17-59); BUN Creatinine Ratio 17.9 (6-22); Bilirubin Total 0.8 mg/dL (0.2-1.3); Blood Urea Nitrogen 17 mg/dL (9-20); Calcium 8.7 mg/dL (8.4-10.2); Carbon Dioxide 27 mmol/L (22-32); Chloride 104 mmol/L (98-107); Creatine Kinase 51 U/L (55-170); Estimated Glomerular Filt Rate > 60 mL/min (>60); Globulin 3.2 g/dL (1.7-4.1); Glucose 160 mg/dL (80-110); Lipase 47 U/L (23-300); Magnesium 1.8 mg/dL (1.6-2.3); Potassium 3.8 mmol/L (3.4-5.1); Sodium 139 mmol/L (137-145); Total Protein 7.4 g/dL (6.3-8.2)
[2023-12-26 20:56] LABS: HEMOLYSIS 72 (0-50)
[2023-12-26 21:06] LABS: NT-proBNP (BNP-Adult 18+) 231 pg/mL (<450); Troponin I < 0.012 ng/mL (0.01-0.034)
--- NOTE | 2023-12-26 22:23 | PC.NURSE ---
Rpt troponin drawn from existing IV line
[2023-12-26 22:58] LABS: Troponin I 0.065 ng/mL (0.01-0.034)
--- NOTE | 2023-12-26 23:33 | PC.NURSE ---
Pt ambulatory to restroom without difficulty or assistance
[2023-12-27] VITALS (26 sets, daily range): BP systolic 141–180; BP diastolic 73–92; PULSE 68–81; RESP 14–28; O2SAT 94–99
--- NOTE | 2023-12-27 02:09 | PC.NURSE ---
Labs drawn from existing IV line.
[2023-12-27 02:39] LABS: Troponin I 0.425 ng/mL (0.01-0.034)
--- NOTE | 2023-12-27 02:46 | EKG_ITS ---
[place] [id number] [place] [id number] Test Date: 2023-12-27 Pat Name: Mau Hester Jr Department: [facility] Room: Gender: Male Client Support Analyst: FARHAD ANN : 1945 Requested By: Order Number: [id number] Reading MD: Timmy Ferrera Measurements Intervals [place] Rate: 71 P: 45 RI: 188 QRS: -77 QRSD: 154 T: 64 QT: 444 QTc: 482 Interpretive Statements Sinus rhythm with occasional premature ventricular complexes Right bundle branch block Left anterior fascicular block Bifascicular block Cannot rule out Inferior infarct (masked by fascicular block?) , age undetermined Electronically Signed On 12-31-2023 18:48:39 PST by Timmy Ferrera
[2023-12-27] MEDS: HEPARIN DRIP 25,000 UNIT/500 ML IV.SOLN 19.958 UNIT IV (03:05)
[2023-12-27] MEDS: HEPARIN 5,000 UNIT/ML VIAL 5000 UNIT IV (03:05)
--- NOTE | 2023-12-27 03:31 | PC.NURSE ---
Contacted for update per patient request.
--- NOTE | 2023-12-27 05:05 | PC.NURSE ---
Addendum entered by Lexi Mendoza CNA 12/27/23 06:05: 0605 spoke with Debbi at [facility]. Kathi Hinton/REFUGIO Loomis in [place] is reviewing patient. 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 The following places were called with the following responses: Located [facility]: 0430 patient on waitlist; they're currently boarding in the ED. Not this weekend. Had 3 code blues in ED. [facility]: 0435 patient on waitlist. [facility]: 0440 Sanjeev, images pushed. Currently they're boarding. [facility]: 0445 patient on waitlist. Will call back before end of shift.
--- NOTE | 2023-12-27 07:01 | DI.ECHO.S_ITS ---
[facility]+ [facility] : : [address] : : [place] : : [id number] : : Phone: [phone] Echocardiogram Report + + :Name: TALIB ABRAHAM JR Study Date: 12/27/2023 Height: 68 in : :[facility] ReadingLocation: Weight: 200 lb : : Gender: Male BSA: 2.0 m2 : :: 1945 Age: 77 yrs BP: 149/86 mmHg: :Reason For Study: NSTEMI : :Ordering Physician: BLU, : :RUFINO Performed By: Farhad Olson : :Referring: RUFINO HURT : + + Interpretation Summary The ejection fraction is estimated to be 30-35%. Mild global hypokinesis that is more notable in the proximal to mid inferior and inferoposterior segments Compared to the prior exam, the left ventricular wall motion has not changed. Procedure: A two-dimensional transthoracic echocardiogram with color flow and Doppler was performed in limited views only. The study quality was technically good. Comparison is made with the echocardiogram of 08/05/2023. The patient was in normal sinus rhythm during the exam. Left Ventricle: The left ventricle is normal in size. Left ventricular wall thickness is mildly increased. The ejection fraction is estimated to be 30- 35%. Mild global hypokinesis that is more notable in the proximal to mid inferior and inferoposterior segments. Compared to the prior exam, the left ventricular wall motion has not changed. Mitral Valve: There is trace mitral regurgitation. Great Vessels: The IVC is of normal diameter and collapses greater than 50% with a sniff. This suggests a low right atrial pressure of 3 mm Hg. MMode/2D Measurements & Calculations LVIDd: 5.1 cm LVIDs: 4.4 cm FS: 13.7 % IVSd: 1.3 cm LVPWd: 0.89 cm LV case. diameter/BSA (cm/m^2): 2.5 LV sys. diameter/BSA (cm/m^2): 2.1 Reading Physician:08:53 AM
[2023-12-27 07:37] LABS: Add Manual Diff / Slide Review NO; Basophils Absolute Auto 100 /uL (0-100); Basophils Percent Auto 1.5 % (0-2); Eosinophils Absolute Auto 300 /uL (0-450); Eosinophils Percent Auto 5.3 % (2-4); Hematocrit 45.5 % (41-53); Hemoglobin 15.5 g/dL (13.5-17.5); Lymphocytes Absolute Auto 2000 /uL (1100-4500); Lymphocytes Percent Auto 30.3 % (25-40); Mean Corpuscular HGB Conc 34.1 % (30-36); Mean Corpuscular Hemoglobin 30.6 PG (26-34); Mean Corpuscular Volume 89.7 fL (80-100); Monocytes Absolute Auto 600 /uL (0-900); Neutrophils Absolute Auto 3500 /uL (1500-7000); Neutrophils Percent Auto 53.9 % (50-75); Platelet Count 163 X10^3/uL (150-400); Red Blood Cell Count 5.07 X10^6/uL (4.5-5.9); Red Cell Distribution Width 13.7 % (11.6-14.8); White Blood Cell Count 6.5 X10^3/uL (4.5-11.0)
[2023-12-27 07:47] LABS: Alanine Aminotransferase 16 IU/L (<50); Albumin 3.9 g/dL (3.5-5.0); Albumin Globulin Ratio 1.6 (1.0-2.8); Alkaline Phosphatase 52 U/L (38-126); Aspartate Aminotransferase 28 IU/L (17-59); BUN Creatinine Ratio 19.4 (6-22); Bilirubin Total 1.1 mg/dL (0.2-1.3); Blood Urea Nitrogen 14 mg/dL (9-20); Calcium 8.3 mg/dL (8.4-10.2); Carbon Dioxide 26 mmol/L (22-32); Chloride 106 mmol/L (98-107); Estimated Glomerular Filt Rate > 60 mL/min (>60); Globulin 2.5 g/dL (1.7-4.1); Glucose 116 mg/dL (80-110); Potassium 3.9 mmol/L (3.4-5.1); Sodium 138 mmol/L (137-145); Total Protein 6.4 g/dL (6.3-8.2)
[2023-12-27 07:48] LABS: HEMOLYSIS 66 (0-50)
[2023-12-27 08:00] LABS: Troponin I 0.689 ng/mL (0.01-0.034)
--- NOTE | 2023-12-27 08:36 | PC.NURSE ---
Pt A&Ox4. States that he feels much better. Given breakfast tray from dietary. Denies cp, sob, n/v. Skin pink, warm & dry.
[2023-12-27 09:39] LABS: PTT Partial Thromboplastin Tim 125 SECONDS (25.1-36.5)
--- NOTE | 2023-12-27 10:46 | PC.NURSE ---
0977 [facility].
== END 2023-12-27 10:39 | disposition short-term general hospital (02) ==
PROVIDERS: Emergency Medicine; Emergency Provider Emergency Medicine; PCP Registered Nurse
DX: I21.4 Non-ST elevation (NSTEMI) myocardial infarction (principal); R07.9 Chest pain, unspecified; I45.2 Bifascicular block; I25.10 Atherosclerotic heart disease of native coronary artery without angina pectoris; Z95.5 Presence of coronary angioplasty implant and graft; R79.89 Other specified abnormal findings of blood chemistry
CPT/HCPCS: 36415; 71045; 80053; 82550; 83690; 83735; 83880; 84484; 85025; 85610; 85730; 93005; 93307; 96365; 96366; 96375; 99284; 99291; J1644

== ENCOUNTER → 2024-01-03 11:01 | Outpatient (CLI) | payer OTHER, SELFPAY ==
[2024-01-03 12:48] LABS: Cholesterol 135 mg/dL (140-199); HDL Cholesterol 50 mg/dL (40-60); LDL Cholesterol Calculated 49 mg/dL (<100); Triglycerides 181 mg/dL (35-150)
== END ==
PROVIDERS: PCP Registered Nurse; Referring Provider Internal Medicine Interventional Cardiology; Visit Provider Internal Medicine Interventional Cardiology
DX: I25.10 Atherosclerotic heart disease of native coronary artery without angina pectoris (principal); Z95.5 Presence of coronary angioplasty implant and graft
CPT/HCPCS: 36415; 80061

== ENCOUNTER → 2024-03-05 07:04 | Outpatient (CLI) | payer MEDICARE, SELFPAY ==
[2024-03-05 08:01] LABS: BUN Creatinine Ratio 17.1 (6-22); Blood Urea Nitrogen 13 mg/dL (9-20); Calcium 8.6 mg/dL (8.4-10.2); Carbon Dioxide 29 mmol/L (22-32); Chloride 107 mmol/L (98-107); Cholesterol 123 mg/dL (140-199); Estimated Glomerular Filt Rate > 60 mL/min (>60); Glucose 115 mg/dL (80-110); HDL Cholesterol 53 mg/dL (40-60); HEMOLYSIS < 15 (0-50); LDL Cholesterol Calculated 43 mg/dL (<100); Potassium 3.9 mmol/L (3.4-5.1); Sodium 139 mmol/L (137-145); Triglycerides 135 mg/dL (35-150)
== END ==
PROVIDERS: PCP Family Medicine; Referring Provider Internal Medicine Interventional Cardiology; Visit Provider Internal Medicine Interventional Cardiology
DX: I25.10 Atherosclerotic heart disease of native coronary artery without angina pectoris (principal)
CPT/HCPCS: 36415; 80048; 80061

== ENCOUNTER → 2024-03-26 09:32 | Outpatient (CLI) | payer MEDICARE, SELFPAY ==
--- NOTE | 2024-03-26 09:34 | DI.RAD.S_ITS ---
PROCEDURE: XR KNEE LT 3V INDICATIONS: Left knee injury TECHNIQUE: 3 views of the knee were acquired. COMPARISON: [facility], CR, XR KNEE LT 3V, 08/25/2019, 9:07. [facility], CR, XR KNEE RT 3V, 08/25/2019, 9:07. FINDINGS: Bones: No fractures or dislocations. Joint space narrowing most pronounced at the medial and patellofemoral compartments. There is tricompartmental osteophytosis, appears increased compared to 2019. No suspicious bony lesions. Soft tissues: Small joint effusion. No suspicious soft tissue calcifications. IMPRESSION: No fracture identified. Small joint effusion. 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 Dictated by: Ronnie Mercer M.D. on 03/26/2024 at 11:03 Approved by: Ronnie Mercer M.D. on 03/26/2024 at 11:05
== END ==
PROVIDERS: PCP Family Medicine; Referring Provider Family Medicine; Visit Provider Family Medicine
DX: S89.92XA Unspecified injury of left lower leg, initial encounter (principal); M17.12 Unilateral primary osteoarthritis, left knee; M25.462 Effusion, left knee; X58.XXXA Exposure to other specified factors, initial encounter
CPT/HCPCS: 73562